=== PATIENT | female | born 2000 ===

== ENCOUNTER 2021-10-03 00:56 | Emergency (ER) | payer OTHER, SELFPAY ==
[2021-10-03 01:05] VITALS: BP 184/87; PULSE 113; RESP 18; TEMP 37; O2SAT 100; BMI 50.8
[2021-10-03 02:06] LABS: Influenza A PCR NEGATIVE (Negative); Influenza B PCR NEGATIVE (Negative); Resp Syncy Virus RNA Qual PCR NEGATIVE (Negative); SARS COV2 PCR INHOUSE NEGATIVE (Negative)
[2021-10-03 02:18] VITALS: BP 139/66; PULSE 113; RESP 18; TEMP 37; O2SAT 99
--- NOTE | 2021-10-03 02:58 | ED_ITS ---
HPI - URI/Sore Throat General Chief Complaint: Upper Respiratory Symptoms Stated Complaint: Flu like symptoms, vomiting Time Seen by Provider: 10/03/21 02:58 Source: patient Mode of arrival: ambulatory History of Present Illness HPI Narrative: 21-year-old female who presents with sore throat and cough that has resulted in her having activation of her acid reflux. She has also had a sore throat but denies any fevers or ear pain. Related Data Allergies Allergy/AdvReac Type Severity Reaction Status Date / Time No Known Allergies Allergy Unverified 08/03/20 16:58 [No Known Allergies*] Review of Systems Review of Systems: Pertinent positives and negatives as stated in HPI 10 point review of systems is otherwise negative. PMFSH Past Medical History Source: nursing notes reviewed Medical History No known health problems Social History Social History Advance Directives: No Advance Directives Information Provided: Yes Patient : No Physical Exam Vital Signs: Vital Signs: Last Vital Signs Temp 98.6 F 10/03/21 02:18 Pulse 113 H 10/03/21 02:18 Resp 18 10/03/21 02:18 BP 139/66 10/03/21 02:18 Pulse Ox 99 10/03/21 02:18 Body Mass Index 50.8 VITAL SIGNS: Reviewed. GENERAL: Well developed, well nourished, in no acute distress. HEAD: Normocephalic/atraumatic EYES: PERRLA, EOMI EARS: Ext canals without abnormality, TMs non-bulging and non-erythematous NOSE: Nares patent bilateral OROPHARYNX: no oral lesions noted, posterior pharynx clear and non-erythematous without noted tonsillar enlargement/erythema/exudates NECK: Supple, no adenopathy LUNGS: Normal breath sounds. No adventitious sounds or accessory muscle use. SpO2<99> CARDIOVASCULAR: Regular rate and rhythm without noted murmurs ABDOMEN: Soft, non-tender, non-distended with bowel sounds. NEUROLOGIC: Alert and oriented x 4. Course Course Course Narrative: 21-year-old female with history and clinical presentation consistent with viral syndrome and possible allergies. Review of all investigations negative for acute findings and patient was treated with Tylenol, ibuprofen as well as a GI cocktail for acid complaints. [facility] - URI/Sore Throat Lab Data Labs: Lab Results 10/03/21 Range/Units 01:16 Influenza Type A (PCR) NEGATIVE (Negative) Influenza Type B (PCR) NEGATIVE (Negative) RSV RNA Qual (PCR) NEGATIVE (Negative) SARS-CoV-2 RNA (RT-PCR) NEGATIVE (Negative) Discharge Plan Discharge Clinical Impression: Upper respiratory infection, Acid reflux Patient Disposition: Home, Self-Care Instructions: Diet for Stomach Ulcers and Gastritis (ED), Upper Respiratory Infection (ED), Gastroesophageal Reflux Disease (ED) Additional Instructions: 1. Recommend using [id number] Cepacol or Sucrets for sore throat. You may use saline gargles as discussed. 2. Continue with [id number] Tylenol/ibuprofen as needed for body aches, temperatures greater than 100.4. 3. Continue drink plenty of fluids especially water. Recommend [id number] Mylanta to to 3 times a day for additional symptom relief of your acid reflux. 4. Consider a cool mist humidifier to bedside for additional symptom relief. 5. Follow-up with your primary care for for re-evaluation and further outpatient management. Return to the ER for acute worsening of symptoms. Stand Alone Forms: Work/School Release
[2021-10-03] MEDS: Acetaminophen 325 MG TABLET 975 MG PO (03:16)
[2021-10-03] MEDS: Ibuprofen 400 MG TABLET PO (03:16)
[2021-10-03] MEDS: Lidocaine HCl Viscous 2 % 15 ML SOLUTION 10 ML MUCOUS MEM (03:16)
[2021-10-03] MEDS: Magnesium Hydrox/Alum Hydrox 30 ML ORAL.SUSP PO (03:16)
--- NOTE | 2021-10-03 03:24 | PC.NURSE ---
Pt alert and oriented x4, calm and cooperative. Pt states agrees to dc plan. Vitals stable. No IV in place. Pt ambulated out to private car without issues.
== END 2021-10-03 03:24 | disposition home or self-care (01) ==
PROVIDERS: Emergency Provider Student in an Organized Health Care Education/Training Program
DX: J06.9 Acute upper respiratory infection, unspecified (principal); K21.9 Gastro-esophageal reflux disease without esophagitis; Z20.822 Contact with and (suspected) exposure to COVID-19
CPT/HCPCS: 0241U; 36415; 99284

== ENCOUNTER 2022-12-31 14:58 | Outpatient (RCR) | payer OTHER, SELFPAY ==
--- NOTE | 2022-12-31 17:26 | MHC.PT.EP ---
[facility] [place] Office [place] [facility] [place] Office [address] [phone] F: [phone] F: [phone] F: [phone] F: [phone] Physical Therapy Plan of Care Date of Evaluation: Date of Surgery: Diagnosis: middle and low back pain Assessment: Patient is a 22 y.o. 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 Patient impairments include pain, limited ROM, weakness, poor posture. Patient current functional limitations are prolonged walking, exercising, and prolonged standing. Patient will benefit from skilled PT to address aforementioned impairments and functional limitations to meet established goals. Frequency and Duration: The patient will be seen 2x/week for 4 weeks Short Term Goals: 2 weeks Patient demonstrates consistency and independence with HEP to self manage symptoms. Patient is able to demonstrate understanding of use fo gym equipment to perform gym program 3x/week outside of PT. Grievance And Appeals Coordinator Goals: 4 weeks Patient presents with increased bilateral shoulder flexion 5/5 to be able to sit for 30 mins for work. Patient presents with increased lumbar sidebending 30 degrees to be able to stand for 15 mins for cleaning/cooking. Treatment Plan: Modalities to reduce pain, spasms and effusion. Manual therapy to restore motion and function. Therapeutic exercise to improve strength and flexibility. Neuromuscular re-education for posture and balance. Therapeutic activities to return to functional activities of daily living. Electronically signed by: Albaro Albert, PT, DPT Please sign and return to therapist. Thank you for your referral.
--- NOTE | 2023-02-13 17:42 | MHC.PT.DC ---
[facility] [place] [facility] [place] [facility] [place] [facility] [address] Nela Agarwal [address] [phone] F: [phone] F: [phone] F: [phone] F: [phone] Physical Therapy Discharge Report Diagnosis: middle and low back pain Date of Surgery: Date of Evaluation: 12/31/22 Date of Discharge: 02/13/23 Treatments to Date: 1 Cancellations to Date: 2 No Shows to Date: Discharge Status: Visit Non-compliance Discharge Summary: Patient canceled her PT visits after initial evaluation and is therefore discharged from PT for non-compliance with visits. Electronically signed by: Albaro Albert, PT, DPT Please sign and return to therapist. Thank you for your referral.
== END 2023-02-13 17:42 | disposition home or self-care (01) ==
LOC: HO.PT 14:58
PROVIDERS: PCP Registered Nurse; Visit Provider Registered Nurse
DX: M54.9 Dorsalgia, unspecified (principal)
CPT/HCPCS: 97110; 97161

== ENCOUNTER 2023-02-04 11:59 | Emergency (ER) | payer OTHER, SELFPAY ==
--- NOTE | ~2023-02-04 | CT_ITS ---
EXAMINATION: CT ABDOMEN AND PELVIS WITHOUT CONTRAST CLINICAL INFORMATION: Constipation, nausea and vomiting. COMPARISON: None available. TECHNIQUE: Multidetector volumetric imaging was performed from the superior aspect of the liver through the pubic symphysis. Sagittal and coronal reformatted images were obtained on the technologist's workstation. This CT examination was performed using dose optimization techniques as appropriate, variously including the following: *Automated exposure control *Adjustment of mA and/or kV according to patient size (this includes techniques or standardized protocols for targeted exams where dose is matched to indication/reason for exam; i.e. extremities or head) *Use of iterative reconstruction technique DLP: 939 mGy-cm FINDINGS: LUNG BASES: The visualized lung bases are unremarkable. LIVER, GALLBLADDER, AND BILIARY TREE: Diffuse decreased hepatic attenuation without focal abnormality. No gallbladder/biliary abnormality. PANCREAS: Unremarkable. SPLEEN: Unremarkable. ADRENAL GLANDS: Unremarkable. KIDNEYS AND URETERS: The kidneys are normal in size, shape, and attenuation. No hydronephrosis, hydroureter, or calculi seen. No perinephric stranding. BLADDER: Unremarkable. GASTROINTESTINAL TRACT: The stomach is unremarkable. The distal small bowel is decompressed. A small air-fluid levels seen in the terminal ileum to the ileocecal valve without surrounding abnormality. The appendix is unremarkable. The colon is decompressed distally to the rectum without surrounding abnormality. ABDOMINAL WALL: No significant hernia is appreciated. LYMPH NODES: No acute cardiopulmonary process. VASCULAR: Unremarkable. PELVIC VISCERA: Mildly retroflexed and retroverted. OSSEOUS STRUCTURES: Unremarkable. CT/CT abdomen pelvis wo IV con IMPRESSION: 1. No acute intra-abdominal/pelvic abnormality. 2. Hepatic steatosis.
[2023-02-04 12:16] VITALS: BP 163/94; PULSE 113; RESP 16; TEMP 36.6; O2SAT 98; BMI 54.5
--- NOTE | 2023-02-04 12:16 | ED.GENADULT ---
HPI - General Adult General Chief complaint: General Medical <RAPHAEL Mathews - Last Filed: 02/04/23 12:19> Stated complaint: sever constipation <RAPHAEL Mathews - Last Filed: 02/04/23 12:19> Time Seen by Provider: 02/04/23 15:28 <RAPHAEL Mathews - Last Filed: 02/04/23 12:19> Source: patient <Yolanda Tolentino NP - Last Filed: 02/04/23 16:47> Mode of arrival: ambulatory <Yolanda Tolentino NP - Last Filed: 02/04/23 16:47> Limitations: no limitations <Yolanda Tolentino NP - Last Filed: 02/04/23 16:47> History of Present Illness HPI narrative: This is a 22-year-old female with history of obesity who presents to the ER with complaints of constipation since yesterday. patient reports her last BM was 2 days. Patient reports and history she has had several episodes of vomiting. Vomiting is nonbilious and nonbloody. Patient reports some abdominal discomfort. No fevers, chills, urinary symptoms. Patient reports approximately 5 weeks ago she was started on wegovy for weight loss. Two weeks ago her dose was increased. She has lost 11 lb since being on the injection <Yolanda Tolentino NP - Last Filed: 02/04/23 16:47> Related Data Home medications: Previous Rx's Medication Instructions Recorded docusate sodium 100 mg capsule 100 mg PO DAILY #60 caps 02/04/23 (Colace) lactulose 10 gram/15 mL oral 10 g (15 mL) PO BEDTIME PRN 02/04/23 solution constipation #120 mL nitrofurantoin 100 mg PO Q12H 5 days #10 caps 02/04/23 monohydrate/macrocrystals 100 mg capsule (Macrobid) ondansetron 4 mg disintegrating 4 mg PO Q6H PRN nausea and 02/04/23 tablet vomiting #20 tabs polyethylene glycol 3350 17 17 g PO DAILY #238 grams 02/04/23 gram/dose oral powder (Miralax) <RAPHAEL Mathews Last Filed: 02/04/23 12:19> Allergies/adverse reactions: Allergies Allergy/AdvReac Type Severity Reaction Status Date / Time No Known Allergies Allergy Unverified 08/03/20 16:58 [No Known Allergies*] <Ty Mcclain PA - Last Filed: 02/04/23 12:19> Review of Systems Review of Systems: Yes all other systems are reviewed and are negative <Yolanda Tolentino NP - Last Filed: 02/04/23 16:47> Constitutional: Constitutional: Reports no additional constitutional complaints, Denies body ache(s), Denies chills, Denies fever(s), Denies headache(s) and Denies weakness <Yolanda Tolentino NP - Last Filed: 02/04/23 16:47> Eyes: Eyes: Reports no additional eye complaints and Denies change in vision <Yolanda Tolentino NP - Last Filed: 02/04/23 16:47> ENT: Reports system reviewed and no additional complaints, except as documented, Denies dizziness, Denies headache(s), Denies nasal congestion, Denies nasal discharge and Denies neck pain <Yolanda Tolentino NP - Last Filed: 02/04/23 16:47> Cardiovascular: Cardiovascular: Reports no additional cardiovascular complaints, Denies chest pain, Denies leg edema and Denies dyspnea <Yolanda Tolentino NP - Last Filed: 02/04/23 16:47> Respiratory: Respiratory: Reports no additional respiratory complaints, Denies cough and Denies dyspnea <Yolanda Tolentino NP - Last Filed: 02/04/23 16:47> Gastrointestinal: Gastrointestinal: Reports no additional gastrointestinal complaints, Denies abdominal pain, Reports constipation, Denies diarrhea, Reports nausea and Reports vomiting <Yolanda Tolentino NP - Last Filed: 02/04/23 16:47> Genitourinary: Genitourinary: Reports no additional female genitourinary complaints and Denies urinary incontinence <Yolanda Tolentino SUPPLY CHAIN GENERALIST - Last Filed: 02/04/23 16:47> Musculoskeletal: Musculoskeletal: Reports no additional musculoskeletal complaints, Denies back pain, Denies arthralgias, Denies joint swelling, Denies neck pain, Denies numbness and Denies tingling <Yolanda Tolentino NP - Last Filed: 02/04/23 16:47> Integumentary/Breasts: Skin/Breast: Reports system reviewed and no additional complaints, except as docu and Denies rash <Yolanda Tolentino NP - Last Filed: 02/04/23 16:47> Neurologic: Reports system reviewed and no additional complaints, except as documented, Denies dizziness, Denies headache(s), Denies numbness, Denies tingling and Denies weakness <Yolanda Tolentino NP - Last Filed: 02/04/23 16:47> [facility] Past Medical History Attestation statement: The following information was validated with the patient. <Yolanda Tolentino NP - Last Filed: 02/04/23 16:47> Source: old records reviewed and nursing notes reviewed <Yolanda Tolentino NP - Last Filed: 02/04/23 16:47> Medical History: Medical History No known health problems <RAPHAEL Mathews - Last Filed: 02/04/23 12:19> Social History Social History: Social History Alcohol intake: never Smoked in Last 30 Days: No Use of substances other than those prescribed or required for medical reasons: No Advance Directives: No Advance Directives Information Provided: Yes Patient : No <RAPHAEL Mathews - Last Filed: 02/04/23 12:19> Physical Exam ED Vital Signs: Vital Signs - 24 hr 02/04/23 12:16 02/04/23 15:39 Temperature 98 F Pulse Rate 113 H 115 H Respiratory Rate 16 19 Blood Pressure 163/94 H 127/83 Pulse Oximetry 98 97 Oxygen Delivery Method Room Air Room Air BMI result Body Mass Index 54.5 <RAHPAEL Mathews - Last Filed: 02/04/23 12:19> Vital Signs - 24 hr 02/04/23 12:16 02/04/23 15:39 Temperature 98 F Pulse Rate 113 H 115 H Respiratory Rate 16 19 Blood Pressure 163/94 H 127/83 Pulse Oximetry 98 97 Oxygen Delivery Method Room Air Room Air BMI result Body Mass Index 54.5 <Yolanda Tolentino NP - Last Filed: 02/04/23 16:47> Const General: cooperative, healthy appearing, comfortable and no acute distress <Yolanda Tolentino SUPPLY CHAIN GENERALIST - Last Filed: 02/04/23 16:47> Orientation/consciousness: patient oriented x3 <Yolanda Tolentino SUPPLY CHAIN GENERALIST - Last Filed: 02/04/23 16:47> Limitations: no limitations <Yolanda Tolentino SUPPLY CHAIN GENERALIST - Last Filed: 02/04/23 16:47> HENMT Head: Yes normal to inspection <Yolanda Tolentino SUPPLY CHAIN GENERALIST - Last Filed: 02/04/23 16:47> Ears: hearing grossly normal bilaterally <Yolanda Tolentino SUPPLY CHAIN GENERALIST - Last Filed: 02/04/23 16:47> Eyes General: appearance normal, both eyes and all related structures <Yolanda Tolentino SUPPLY CHAIN GENERALIST - Last Filed: 02/04/23 16:47> Pupils: Equal, round and reactive pupils present <Yolanda Tolentino SUPPLY CHAIN GENERALIST - Last Filed: 02/04/23 16:47> Neck Neck: Yes normal visual inspection, Yes full ROM, Yes no lymphadenopathy and Yes no meningeal signs <Yolanda Tolentino SUPPLY CHAIN GENERALIST - Last Filed: 02/04/23 16:47> Chest Chest palpation & inspection: normal inspection of the chest <Yolanda Tolentino NP - Last Filed: 02/04/23 16:47> Resp Effort & Inspection: normal respiratory effort <Yolanda Tolentino SUPPLY CHAIN GENERALIST - Last Filed: 02/04/23 16:47> Auscultation: clear to auscultation bilaterally <Yolanda Tolentino SUPPLY CHAIN GENERALIST - Last Filed: 02/04/23 16:47> Cardio Rate: regular rate <Yolanda Tolentino SUPPLY CHAIN GENERALIST - Last Filed: 02/04/23 16:47> Rhythm: regular rhythm <Yolanda Tolentino SUPPLY CHAIN GENERALIST - Last Filed: 02/04/23 16:47> Peripheral pulses: Peripheral pulses 2+ throughout <Yolanda Tolentino SUPPLY CHAIN GENERALIST - Last Filed: 02/04/23 16:47> GI Inspection: Yes normal to inspection <Yolanda Tolentino SUPPLY CHAIN GENERALIST - Last Filed: 02/04/23 16:47> Palpation (GI): Soft to palpation and nontender <Yolanda Tolentino SUPPLY CHAIN GENERALIST - Last Filed: 02/04/23 16:47> Auscultation: normal bowel sounds <Yolanda Tolentino SUPPLY CHAIN GENERALIST - Last Filed: 02/04/23 16:47> General: Yes no CVA tenderness <Yolanda Tolentino, SUPPLY CHAIN GENERALIST - Last Filed: 02/04/23 16:47> Back/Spine/Pelvis Back: no CVA tenderness <Yolanda Tolentino SUPPLY CHAIN GENERALIST - Last Filed: 02/04/23 16:47> Thoracic/Lumbar Spine: thoracic and lumbar spine normal to inspection <Yolanda Tolentino SUPPLY CHAIN GENERALIST - Last Filed: 02/04/23 16:47> Skin General skin exam: no rashes or lesions noted <Yolanda Tolentino SUPPLY CHAIN GENERALIST - Last Filed: 02/04/23 16:47> Neuro General: patient oriented x3, moves all extremities and no meningeal signs <Yolanda Tolentino SUPPLY CHAIN GENERALIST - Last Filed: 02/04/23 16:47> Cranial nerves: Yes Equal, round and reactive pupils present <Yolanda Tolentino SUPPLY CHAIN GENERALIST - Last Filed: 02/04/23 16:47> Cognition (Neuro): normal cognition <Yolanda Tolentino SUPPLY CHAIN GENERALIST - Last Filed: 02/04/23 16:47> Gait exam (Neuro): Normal gait present <Yolanda Tolentino SUPPLY CHAIN GENERALIST - Last Filed: 02/04/23 16:47> Extrem General: Yes normal to inspection, Yes no pedal edema and Yes no calf tenderness <Yolanda Tolentino SUPPLY CHAIN GENERALIST - Last Filed: 02/04/23 16:47> Course Course Course Narrative: This is an RME: Additional HPI, ROS, PE not included below will be deferred to primary provider. 22-year-old female hx of obesity, htn presents to the emergency department for evaluation of nausea, vomiting ( bile 2 x a day or each time she tries to eat), anorexia, constipation, no bowel movement since Saturday. Has tried stool softeners, enemas with no relief. No previous abdominal surgeries or history of malignancy. Recently started Wegovy for weight loss. No history of bowel obstructions. Denies fevers, chills, hematochezia, hematemesis, chest pain, shortness of breath . Physical exam benign. Bowel sounds present. Abdomen soft, nondistended Will obtain basic labs, viral testing, dry scan of the abdomen and pelvis to rule out obstruction <RAPHAEL Mathews - Last Filed: 02/04/23 12:19> Reevaluation(s) Reevaluation #1: CT negative for any signs of obstruction. Labs are unremarkable. UA is consistent with UTI. Patient with mild constipation. Most of her symptoms are likely side effects from recently starting would go be. Patient overall nontoxic appearing. Will discharge home with lactulose p.r.n., bowel regimen, antibiotic, p.r.n. antiemetics. Reviewed worrisome signs and symptoms of when to return to the emergency room. Comfortable plan for discharge home. <Yolanda Tolentino NP - Last Filed: 02/04/23 16:47> Medical Decision Making Medical Decision Making [facility] Narrative: 22-year-old female here with complaints of constipation since yesterday with several episodes of vomiting. Patient recently started wegovy for weight loss Abdomen is soft and nontender with no rebound or guarding Patient overall nontoxic appearing Patient had labs, UA and CT ordered from triage <Yolanda Tolentino NP - Last Filed: 02/04/23 16:47> Differential Diagnosis Differential Diagnoses: The differential diagnosis associated with the presentation includes <Yolanda Tolentino NP - Last Filed: 02/04/23 16:47> Constipation, medication side effect Less likely small-bowel obstruction, appendicitis <Yolanda Tolentino NP - Last Filed: 02/04/23 16:47> Lab Data [facility] Lab Attestation statement: I reviewed the patient's lab results. <Yolanda Tolentino NP - Last Filed: 02/04/23 16:47> Result Diagrams: 02/04/23 12:52 02/04/23 12:52 <RAPHAEL Mathews - Last Filed: 02/04/23 12:19> Labs: Lab Results 02/04/23 02/04/23 02/04/23 Range/Units 12:52 12:52 12:52 WBC 12.6 H (4.8-10.8) X10*3/uL RBC 5.26 (4.20-5.50) X10*6/uL Hgb 14.1 (12.0-16.0) g/dl Hct 44.1 (37.0-47.0) % MCV 83.8 (80.0-98.0) fL MCH 26.8 L (27.0-33.0) pg MCHC 32.0 (31.0-35.0) g/dl RDW 13.3 (11.0-16.0) % Plt Count 444 H (160-400) X10*3/uL MPV 9.8 (9.4-12.3) fL Immature Gran % (Auto) 0.4 (0.0-0.4) % Neut % (Auto) 84.1 H (45-73) % Lymph % (Auto) 9.0 L (20-40) % [place] % (Auto) 4.4 (2-11) % Eos % (Auto) 1.9 (0-4) % Baso % (Auto) 0.2 (0-2) % Lymph # (Auto) 1.1 L (1.2-4.9) X10*3/uL [place] # (Auto) 0.6 (0.1-1.2) X10*3/uL Eos # (Auto) 0.2 (0.0-0.4) X10*3/uL Baso # (Auto) 0.0 (0.0-0.2) X10*3/uL Abs Immat Gran (auto) 0.05 H (0.00-0.03) X10*3/uL Absolute Neuts (auto) 10.6 H (2.0-8.3) x10*3/uL Absolute Nucleated RBC 0.000 (0.0-0.012) X10*3/uL Nucleated RBC % (auto) 0.0 (0.0-0.2) /100WBC Sodium 142 (135-145) mmol/L Potassium 3.8 (3.3-5.1) mmol/L Chloride 103 (96-108) mmol/L Carbon Dioxide 27 (22-29) mmol/L Anion Gap 16 (12-20) BUN 9 (9-16) mg/dL Creatinine 0.85 (0.5-1.4) mg/dL Estim Creat Clear Calc 128.8 Estimated GFR > 60 Random Glucose 97 (60-115) mg/dL Calcium 9.5 (8.4-10.2) mg/dL Total Bilirubin 0.6 (0.0-1.0) mg/dL AST 16 (5-31) U/L ALT 29 (0-31) U/L Alkaline Phosphatase 94 (39-117) U/L Total Protein 7.8 (6.5-8.0) g/dL Albumin 4.6 (3.5-5.0) g/dL Urine Color Urine Appearance Urine pH (5.0-9.0) Ur Specific [place] (1.005-1.025) Urine Protein (Neg-Trace) mg/dL Urine Glucose (UA) (Negative) mg/dL Urine Ketones (Negative) mg/dL Urine Blood (Negative) Urine Nitrite (Negative) Ur Leukocyte Esterase (Negative) Urine RBC (0-2) /HPF Urine WBC (0-5) /HPF Ur Squamous Epith Cells (0-2) /HPF Urine Bacteria (None Seen) Hyaline Casts (0-2) /LPF Urine Test (NEGATIVE) COVID-19 (PAMELA) (Negative) COVID-19 Clin Com Influenza Type A (TORI) Negative (Negative) Influenza Type B (TORI) Negative (Negative) Influenza A & B Note SEE NOTE 02/04/23 02/04/23 02/04/23 Range/Units 12:52 14:20 14:20 WBC (4.8-10.8) X10*3/uL RBC (4.20-5.50) X10*6/uL Hgb (12.0-16.0) g/dl Hct (37.0-47.0) % MCV (80.0-98.0) fL MCH (27.0-33.0) pg MCHC (31.0-35.0) g/dl RDW (11.0-16.0) % Plt Count (160-400) X10*3/uL MPV (9.4-12.3) fL Immature Gran % (Auto) (0.0-0.4) % Neut % (Auto) (45-73) % Lymph % (Auto) (20-40) % [place] % (Auto) (2-11) % Eos % (Auto) (0-4) % Baso % (Auto) (0-2) % Lymph # (Auto) (1.2-4.9) X10*3/uL [place] # (Auto) (0.1-1.2) X10*3/uL Eos # (Auto) (0.0-0.4) X10*3/uL Baso # (Auto) (0.0-0.2) X10*3/uL Abs Immat Gran (auto) (0.00-0.03) X10*3/uL Absolute Neuts (auto) (2.0-8.3) x10*3/uL Absolute Nucleated RBC (0.0-0.012) X10*3/uL Nucleated RBC % (auto) (0.0-0.2) /100WBC Sodium (135-145) mmol/L Potassium (3.3-5.1) mmol/L Chloride (96-108) mmol/L Carbon Dioxide (22-29) mmol/L Anion Gap (12-20) BUN (9-16) mg/dL Creatinine (0.5-1.4) mg/dL Estim Creat Clear Calc Estimated GFR Random Glucose (60-115) mg/dL Calcium (8.4-10.2) mg/dL Total Bilirubin (0.0-1.0) mg/dL AST (5-31) U/L ALT (0-31) U/L Alkaline Phosphatase (39-117) U/L Total Protein (6.5-8.0) g/dL Albumin (3.5-5.0) g/dL Urine Color Yellow Urine Appearance Clear Urine pH 6.0 (5.0-9.0) Ur Specific [place] 1.025 (1.005-1.025) Urine Protein 30 (1+) H (Neg-Trace) mg/dL Urine Glucose (UA) Negative (Negative) mg/dL Urine Ketones 15 (Negative) mg/dL Urine Blood Large (3+) H (Negative) Urine Nitrite Negative (Negative) Ur Leukocyte Esterase Moderate (2+) H (Negative) Urine RBC >20 H (0-2) /HPF Urine WBC 6-10 H (0-5) /HPF Ur Squamous Epith Cells 6-10 (0-2) /HPF Urine Bacteria None Seen (None Seen) Hyaline Casts 0-2 (0-2) /LPF Urine Test NEGATIVE (NEGATIVE) COVID-19 (PAMELA) Negative (Negative) COVID-19 Clin Com See Note Influenza Type A (TORI) (Negative) Influenza Type B (TORI) (Negative) Influenza A & B Note <RAPHAEL Mathews - Last Filed: 02/04/23 12:19> Lab Results 02/04/23 02/04/23 02/04/23 Range/Units 12:52 12:52 12:52 WBC 12.6 H (4.8-10.8) X10*3/uL RBC 5.26 (4.20-5.50) X10*6/uL Hgb 14.1 (12.0-16.0) g/dl Hct 44.1 (37.0-47.0) % MCV 83.8 (80.0-98.0) fL MCH 26.8 L (27.0-33.0) pg MCHC 32.0 (31.0-35.0) g/dl RDW 13.3 (11.0-16.0) % Plt Count 444 H (160-400) X10*3/uL MPV 9.8 (9.4-12.3) fL Immature Gran % (Auto) 0.4 (0.0-0.4) % Neut % (Auto) 84.1 H (45-73) % Lymph % (Auto) 9.0 L (20-40) % [place] % (Auto) 4.4 (2-11) % Eos % (Auto) 1.9 (0-4) % Baso % (Auto) 0.2 (0-2) % Lymph # (Auto) 1.1 L (1.2-4.9) X10*3/uL [place] # (Auto) 0.6 (0.1-1.2) X10*3/uL Eos # (Auto) 0.2 (0.0-0.4) X10*3/uL Baso # (Auto) 0.0 (0.0-0.2) X10*3/uL Abs Immat Gran (auto) 0.05 H (0.00-0.03) X10*3/uL Absolute Neuts (auto) 10.6 H (2.0-8.3) x10*3/uL Absolute Nucleated RBC 0.000 (0.0-0.012) X10*3/uL Nucleated RBC % (auto) 0.0 (0.0-0.2) /100WBC Sodium 142 (135-145) mmol/L Potassium 3.8 (3.3-5.1) mmol/L Chloride 103 (96-108) mmol/L Carbon Dioxide 27 (22-29) mmol/L Anion Gap 16 (12-20) BUN 9 (9-16) mg/dL Creatinine 0.85 (0.5-1.4) mg/dL Estim Creat Clear Calc 128.8 Estimated GFR > 60 Random Glucose 97 (60-115) mg/dL Calcium 9.5 (8.4-10.2) mg/dL Total Bilirubin 0.6 (0.0-1.0) mg/dL AST 16 (5-31) U/L ALT 29 (0-31) U/L Alkaline Phosphatase 94 (39-117) U/L Total Protein 7.8 (6.5-8.0) g/dL Albumin 4.6 (3.5-5.0) g/dL Urine Color Urine Appearance Urine pH (5.0-9.0) Ur Specific [place] (1.005-1.025) Urine Protein (Neg-Trace) mg/dL Urine Glucose (UA) (Negative) mg/dL Urine Ketones (Negative) mg/dL Urine Blood (Negative) Urine Nitrite (Negative) Ur Leukocyte Esterase (Negative) Urine RBC (0-2) /HPF Urine WBC (0-5) /HPF Ur Squamous Epith Cells (0-2) /HPF Urine Bacteria (None Seen) Hyaline Casts (0-2) /LPF Urine Test (NEGATIVE) COVID-19 (PAMELA) (Negative) COVID-19 Clin Com Influenza Type A (TORI) Negative (Negative) Influenza Type B (TORI) Negative (Negative) Influenza A & B Note SEE NOTE 02/04/23 02/04/23 02/04/23 Range/Units 12:52 14:20 14:20 WBC (4.8-10.8) X10*3/uL RBC (4.20-5.50) X10*6/uL Hgb (12.0-16.0) g/dl Hct (37.0-47.0) % MCV (80.0-98.0) fL MCH (27.0-33.0) pg MCHC (31.0-35.0) g/dl RDW (11.0-16.0) % Plt Count (160-400) X10*3/uL MPV (9.4-12.3) fL Immature Gran % (Auto) (0.0-0.4) % Neut % (Auto) (45-73) % Lymph % (Auto) (20-40) % [place] % (Auto) (2-11) % Eos % (Auto) (0-4) % Baso % (Auto) (0-2) % Lymph # (Auto) (1.2-4.9) X10*3/uL [place] # (Auto) (0.1-1.2) X10*3/uL Eos # (Auto) (0.0-0.4) X10*3/uL Baso # (Auto) (0.0-0.2) X10*3/uL Abs Immat Gran (auto) (0.00-0.03) X10*3/uL Absolute Neuts (auto) (2.0-8.3) x10*3/uL Absolute Nucleated RBC (0.0-0.012) X10*3/uL Nucleated RBC % (auto) (0.0-0.2) /100WBC Sodium (135-145) mmol/L Potassium (3.3-5.1) mmol/L Chloride (96-108) mmol/L Carbon Dioxide (22-29) mmol/L Anion Gap (12-20) BUN (9-16) mg/dL Creatinine (0.5-1.4) mg/dL Estim Creat Clear Calc Estimated GFR Random Glucose (60-115) mg/dL Calcium (8.4-10.2) mg/dL Total Bilirubin (0.0-1.0) mg/dL AST (5-31) U/L ALT (0-31) U/L Alkaline Phosphatase (39-117) U/L Total Protein (6.5-8.0) g/dL Albumin (3.5-5.0) g/dL Urine Color Yellow Urine Appearance Clear Urine pH 6.0 (5.0-9.0) Ur Specific [place] 1.025 (1.005-1.025) Urine Protein 30 (1+) H (Neg-Trace) mg/dL Urine Glucose (UA) Negative (Negative) mg/dL Urine Ketones 15 (Negative) mg/dL Urine Blood Large (3+) H (Negative) Urine Nitrite Negative (Negative) Ur Leukocyte Esterase Moderate (2+) H (Negative) Urine RBC >20 H (0-2) /HPF Urine WBC 6-10 H (0-5) /HPF Ur Squamous Epith Cells 6-10 (0-2) /HPF Urine Bacteria None Seen (None Seen) Hyaline Casts 0-2 (0-2) /LPF Urine Test NEGATIVE (NEGATIVE) COVID-19 (PAMELA) Negative (Negative) COVID-19 Clin Com See Note Influenza Type A (TORI) (Negative) Influenza Type B (TORI) (Negative) Influenza A & B Note <Yolanda Tolentino NP - Last Filed: 02/04/23 16:47> Independent Interpretation I performed an independent interpretation of an: CT Scan <Yolanda Tolentino NP - Last Filed: 02/04/23 16:47> Interpretation: I independently reviewed the CT scan and agree with radiologist's report. I do note that there is a moderate stool burden throughout the colon as well. <Yolanda Tolentino NP - Last Filed: 02/04/23 16:47> Radiology Impression Discussion of test interpretation with radiology: I have reviewed the radiologist's reading. <Yolanda Tolentino NP - Last Filed: 02/04/23 16:47> Discharge Plan Discharge Clinical Impression: Constipation, UTI (urinary tract infection) <RAPHAEL Mathews - Last Filed: 02/04/23 12:19> Patient Disposition: Home, Self-Care <RAPHAEL Mathews Last Filed: 02/04/23 12:19> Instructions: Constipation (ED), Urinary Tract Infection in Women (ED) <RAPHAEL Mathews - Last Filed: 02/04/23 12:19> Additional Instructions: Constipation and vomiting are common side effects of the medication that you are currently taking Increase fluids and fiber in your diet Make sure you are eating small frequent meals throughout the day Take the lactulose for the next few days until your able to have a bowel movement then discontinue the lactulose. Then start the bowel regimen of MiraLax and Colace daily You had to have a urinary tract infection. Increase fluids at home. Take all of the antibiotics. <RAPHAEL Mathews - Last Filed: 02/04/23 12:19> Prescriptions: New nitrofurantoin monohyd/m-cryst [Macrobid] 100 mg capsule 100 mg PO Q12H 5 Days Qty: 10 0RF Rx Instructions: must administer with a meal/food ondansetron 4 mg tablet,disintegrating 4 mg PO Q6H PRN (Reason: nausea and vomiting) Qty: 20 0RF polyethylene glycol 3350 [Miralax] 17 gram/dose powder 17 g PO DAILY Qty: 238 0RF docusate sodium [Colace] 100 mg capsule 100 mg PO DAILY Qty: 60 0RF lactulose 10 gram/15 mL solution 10 g PO BEDTIME PRN (Reason: constipation) Qty: 120 0RF <RAPHAEL Mathews - Last Filed: 02/04/23 12:19> Referrals: Physician,Unknown J [Primary Care Provider] - 1 week <RAPHAEL Mathews - Last Filed: 02/04/23 12:19>
[2023-02-04 12:59] LABS: Basophils Percent Auto 0.2 % (0-2); Eosinophils Absolute Auto 0.2 X10*3/uL (0.0-0.4); Eosinophils Percent Auto 1.9 % (0-4); Hematocrit 44.1 % (37.0-47.0); Hemoglobin 14.1 g/dl (12.0-16.0); Imm Gran Abs Auto 0.05 X10*3/uL (0.00-0.03); Imm Gran Pct Auto 0.4 % (0.0-0.4); Lymphocytes Absolute Auto 1.1 X10*3/uL (1.2-4.9); MANUAL DIFF FLAG NO; Mean Corpuscular Hemoglobin 26.8 pg (27.0-33.0); Mean Corpuscular Volume 83.8 fL (80.0-98.0); Mean Platelet Volume 9.8 fL (9.4-12.3); Monocytes Absolute Auto 0.6 X10*3/uL (0.1-1.2); Monocytes Percent Auto 4.4 % (2-11); Neutrophils Absolute Auto 10.6 x10*3/uL (2.0-8.3); Neutrophils Percent Auto 84.1 % (45-73); Platelet Count 444 X10*3/uL (160-400); Red Blood Count 5.26 X10*6/uL (4.20-5.50); Red Cell Distribution Width 13.3 % (11.0-16.0); White Blood Count 12.6 X10*3/uL (4.8-10.8)
[2023-02-04 13:11] LABS: COVID-19 Test Negative (Negative); IDNOW Serial# 08D9AD1C
[2023-02-04 13:17] LABS: Alanine Aminotransferase 29 U/L (0-31); Albumin Level 4.6 g/dL (3.5-5.0); Alkaline Phosphatase 94 U/L (39-117); Anion Gap 16 (12-20); Aspartate Amino Transferase 16 U/L (5-31); Bilirubin Total 0.6 mg/dL (0.0-1.0); Blood Urea Nitrogen 9 mg/dL (9-16); Calcium 9.5 mg/dL (8.4-10.2); Carbon Dioxide 27 mmol/L (22-29); Chloride 103 mmol/L (96-108); Creatinine Clr Calc Pharmacy 128.8; Estimated Glomerular Filt Rate > 60; Glucose Random 97 mg/dL (60-115); Potassium 3.8 mmol/L (3.3-5.1); Sodium 142 mmol/L (135-145); Total Protein 7.8 g/dL (6.5-8.0)
[2023-02-04 13:30] LABS: IDNOW Serial# 9DB6401D; Influenza B2 Negative (Negative)
[2023-02-04 13:31] LABS: Influenza A Negative (Negative)
[2023-02-04 14:28] LABS: Appearance Urine Clear; Color Urine Yellow; Glucose Urine UA Negative (Negative); Leukocyte Esterase Urine Moderate (2+) (Negative); Nitrite Urine Negative (Negative); Specific Gravity - Urine 1.025 (1.005-1.025); UMIC TRIGGER UACC YES; Urine Blood Large (3+) (Negative); Urine Ketones 15 mg/dL (Negative); Urine Protein 30 (1+) mg/dL (Neg-Trace)
[2023-02-04 14:30] LABS: Bacteria Urine None Seen (None Seen); Hyaline Casts Urine 0-2 /LPF (0-2); RBC Urine >20 /HPF (0-2); UACC Culture Trigger YES; UPreg QC Valid YES; Urine Pregnancy NEGATIVE (NEGATIVE)
[2023-02-04 15:39] VITALS: BP 127/83; PULSE 115; RESP 19; O2SAT 97
--- NOTE | 2023-02-04 15:41 | PC.NURSE ---
Patient well appearing resting on stretcher. Patient on medication that can slow down bowel function. Patient with some pressure pain in her abdomen from the constipation, otherwise has no complaints.
== END 2023-02-04 17:13 | disposition home or self-care (01) ==
PROVIDERS: Physician Assistant; Emergency Provider Emergency Medicine
DX: K59.00 Constipation, unspecified (principal); N39.0 Urinary tract infection, site not specified; Z20.822 Contact with and (suspected) exposure to COVID-19; Z20.828 Contact with and (suspected) exposure to other viral communicable diseases; Z79.899 Other long term (current) drug therapy
CPT/HCPCS: 36415; 74176; 80053; 81001; 81025; 85025; 87086; 87147; 87502; 87635; 99284

== ENCOUNTER 2023-02-14 12:56 | Emergency (ER) | payer OTHER, SELFPAY ==
[2023-02-14 13:02] VITALS: BP 150/86; PULSE 132; RESP 18; TEMP 36.3; O2SAT 132; BMI 53.6
--- NOTE | 2023-02-14 13:02 | ED_ITS ---
HPI - General Adult General Chief complaint: Abdominal Pain <RAPHAEL Jones - Last Filed: 02/14/23 13:03> Stated complaint: Vomiting/Dehydrated sent by [facility] <RAPHAEL Jones - Last Filed: 02/14/23 13:03> Time Seen by Provider: 02/14/23 16:50 <RAPHAEL Jones - Last Filed: 02/14/23 13:03> Source: patient <Contreras Landin MD - Last Filed: 02/14/23 19:48> Mode of arrival: ambulatory <Contreras Landin MD - Last Filed: 02/14/23 19:48> Limitations: no limitations <Contreras Landin MD - Last Filed: 02/14/23 19:48> History of Present Illness HPI narrative: 22-year-old female presents with nausea, vomiting and abdominal pain. The symptoms started yesterday. She has had multiple episodes of nonbilious nonbloody emesis. Her pain is described as a 5 or 6/10. The pain is upper abdominal. Does not radiate. There is no clear relieving or exacerbating f eatures. Pain is described as crampy in nature. Patient denies any fevers or chills. She does describe constipation. She has no diarrhea. There has been no blood in her stools. She is passing flatus. She has never had surgery before. She was seen by her primary care provider is center for dehydration. <Contreras Landin MD - Last Filed: 02/14/23 19:48> Related Data Home medications: Previous Rx's Medication Instructions Recorded docusate sodium 100 mg capsule 100 mg PO DAILY #60 caps 02/04/23 (Colace) lactulose 10 gram/15 mL oral 10 g (15 mL) PO BEDTIME PRN 02/04/23 solution constipation #120 mL nitrofurantoin 100 mg PO Q12H 5 days #10 caps 02/04/23 monohydrate/macrocrystals 100 mg capsule (Macrobid) ondansetron 4 mg disintegrating 4 mg PO Q6H PRN nausea and 02/04/23 tablet vomiting #20 tabs polyethylene glycol 3350 17 17 g PO DAILY #238 grams 02/04/23 gram/dose oral powder (Miralax) famotidine 20 mg tablet 20 mg PO BID #20 tabs 02/14/23 ondansetron 4 mg disintegrating 4 mg PO Q8H PRN nausea and 02/14/23 tablet vomiting #10 tabs <RAPHAEL Jones - Last Filed: 02/14/23 13:03> Allergies/adverse reactions: Allergies Allergy/AdvReac Type Severity Reaction Status Date / Time No Known Allergies Allergy Unverified 08/03/20 16:58 [No Known Allergies*] <RAPHAEL Jones - Last Filed: 02/14/23 13:03> [facility] Past Medical History Medical History: Medical History No known health problems <RAPHAEL Jones - Last Filed: 02/14/23 13:03> Social History Social History: Social History Alcohol intake: never Smoked in Last 30 Days: No Use of substances other than those prescribed or required for medical reasons: No Advance Directives: No Advance Directives Information Provided: No Patient : No <RAPHAEL Jones - Last Filed: 02/14/23 13:03> Physical Exam ED Vital Signs: Vital Signs - 24 hr 02/14/23 13:02 02/14/23 17:42 02/14/23 18:29 Temperature 97.4 F 98.3 F 97.6 F Pulse Rate 132 H 106 H 98 Respiratory Rate 18 16 18 Blood Pressure 150/86 H 118/73 104/54 L Pulse Oximetry 132 H 99 98 Oxygen Delivery Method Room Air Room Air Room Air BMI result Body Mass Index 53.6 <RAPHAEL Jones - Last Filed: 02/14/23 13:03> Vital Signs - 24 hr 02/14/23 13:02 02/14/23 17:42 02/14/23 18:29 Temperature 97.4 F 98.3 F 97.6 F Pulse Rate 132 H 106 H 98 Respiratory Rate 18 16 18 Blood Pressure 150/86 H 118/73 104/54 L Pulse Oximetry 132 H 99 98 Oxygen Delivery Method Room Air Room Air Room Air BMI result Body Mass Index 53.6 <Contreras Landin MD - Last Filed: 02/14/23 19:48> GEN: Well developed, no acute distress, alert, oriented HEENT: Normocephalic, atraumatic, normal external ears, nose appears normal, no oropharyngeal edema or exudates Eyes: Normal to appearance Neck: Supple, no lymphadenopathy Respiratory: Talks in complete sentences, no respiratory distress, clear to auscultation bilaterally Cardiovascular: Regular rate and rhythm, no murmurs rubs or gallops Abdomen: Soft, nontender, nondistended, no guarding, no rebound Back: No CVA tenderness Extremities: No clubbing cyanosis or edema Neurologic: No focal neurologic deficits, cranial nerves 2-12 intact, strength is 5/5 bilaterally, gait normal Skin: No rash <Contreras Landin MD - Last Filed: 02/14/23 19:48> Course Course Course Narrative: RME performed by Carolina Roberts PA-C. Patient is 22 year old assigned female at presenting to the emergency department with nausea and vomiting. Labs ordered. Patient placed back in the waiting room pending room availability and results. <RAPHAEL Jones - Last Filed: 02/14/23 13:03> Reevaluation(s) Reevaluation #1: Lab work is back. There is no significant acute abnormalities. There are no major electrolyte abnormalities. Patient have IV fluids, famotidine, Toradol and Zofran. Will re-evaluate patient. Patient recently did have an increase in her simeglutide prescription which may in fact be the culprit for her symptoms. <Contreras Landin MD - Last Filed: 02/14/23 19:48> Time: 17:41 <Contreras Landin MD - Last Filed: 02/14/23 19:48> Reevaluation #2: tolerated PO <Contreras Landin MD - Last Filed: 02/14/23 19:48> Time: 19:48 <Contreras Landin MD - Last Filed: 02/14/23 19:48> Medications Administered Discontinued Medications Generic Name Dose Route Start Last Admin Trade Name Freq PRN Reason Stop Dose Admin Famotidine 20 mg 02/14/23 17:14 02/14/23 17:42 Famotidine/Pf 20 Mg/2 Ml Vial IVPUSH 02/14/23 17:15 20 mg ONCE ONE Administration Sodium Chloride 1,000 mls @ 999 mls/hr 02/14/23 17:15 02/14/23 17:38 Ns IV 02/14/23 18:15 999 mls/hr .Q1H1M NESTOR Administration Ketorolac Tromethamine 15 mg 02/14/23 17:14 02/14/23 17:38 Ketorolac Tromethamine 15 Mg/Ml Vial IVPUSH 02/14/23 17:15 15 mg ONCE ONE Administration Ondansetron HCl 4 mg 02/14/23 17:14 02/14/23 17:40 Ondansetron Hcl 4 Mg/2 Ml Vial IVPUSH 02/14/23 17:15 4 mg ONCE ONE Administration <RAPHAEL Jones - Last Filed: 02/14/23 13:03> Medications Administered Discontinued Medications Generic Name Dose Route Start Last Admin Trade Name Anne-Marie PRN Reason Stop Dose Admin Famotidine 20 mg 02/14/23 17:14 02/14/23 17:42 Famotidine/Pf 20 Mg/2 Ml Vial IVPUSH 02/14/23 17:15 20 mg ONCE ONE Administration Sodium Chloride 1,000 mls @ 999 mls/hr 02/14/23 17:15 02/14/23 17:38 Ns IV 02/14/23 18:15 999 mls/hr .Q1H1M NESTOR Administration Ketorolac Tromethamine 15 mg 02/14/23 17:14 02/14/23 17:38 Ketorolac Tromethamine 15 Mg/Ml Vial IVPUSH 02/14/23 17:15 15 mg ONCE ONE Administration Ondansetron HCl 4 mg 02/14/23 17:14 02/14/23 17:40 Ondansetron Hcl 4 Mg/2 Ml Vial IVPUSH 02/14/23 17:15 4 mg ONCE ONE Administration <Contreras Landin MD - Last Filed: 02/14/23 19:48> Medical Decision Making Medical Decision Making MDM Narrative: 22-year-old female presents with dehydration. She has had multiple episodes of nonbilious nonbloody emesis. She also complains of upper abdominal pain. Her examination is benign. There is no rebound or guarding. There is no tenderness. She has negative Pastor sign. No McBurney's point tenderness doubt acute appendicitis or acute cholecystitis. Additional differential diagnosis could include peptic ulcer diet disease gastritis, medication reaction, IBD, IBS, gastroparesis, bacterial overgrowth. Patient will have laboratory analysis , analgesics antiemetics and IV fluids and frequent re-evaluation. There are no red flag signs or symptoms. Doubt catastrophic injury such is AAA, dissection, bowel perforation. <Contreras Landin MD - Last Filed: 02/14/23 19:48> Differential Diagnosis Differential Diagnoses: The differential diagnosis associated with the presentation includes (Medication reaction, gastritis, peptic ulcer disease, IBD, IBS, pancreatitis, hepatitis, cholecystitis, appendicitis, colitis) <Contreras Landin MD - Last Filed: 02/14/23 19:48> Admission/Observation Consideration of admission/observation: Escalation of care including admission/observation considered <Contreras Landin MD - Last Filed: 02/14/23 19:48> Lab Data MDM Lab Attestation statement: I reviewed the patient's lab results. <Contreras Landin MD - Last Filed: 02/14/23 19:48> Result Diagrams: 02/14/23 13:12 02/14/23 13:12 <RAPHAEL Jones - Last Filed: 02/14/23 13:03> Labs: Lab Results 02/14/23 02/14/23 02/14/23 Range/Units 13:12 13:12 14:49 WBC 11.7 H (4.8-10.8) X10*3/uL RBC 5.25 (4.20-5.50) X10*6/uL Hgb 14.0 (12.0-16.0) g/dl Hct 43.2 (37.0-47.0) % MCV 82.3 (80.0-98.0) fL MCH 26.7 L (27.0-33.0) pg MCHC 32.4 (31.0-35.0) g/dl RDW 13.2 (11.0-16.0) % Plt Count 437 H (160-400) X10*3/uL MPV 10.1 (9.4-12.3) fL Immature Gran % (Auto) 0.4 (0.0-0.4) % Neut % (Auto) 90.7 H (45-73) % Lymph % (Auto) 5.7 L (20-40) % Mcduffie % (Auto) 2.6 (2-11) % Eos % (Auto) 0.1 (0-4) % Baso % (Auto) 0.5 (0-2) % Lymph # (Auto) 0.7 L (1.2-4.9) X10*3/uL Mcduffie # (Auto) 0.3 (0.1-1.2) X10*3/uL Eos # (Auto) 0.0 (0.0-0.4) X10*3/uL Baso # (Auto) 0.1 (0.0-0.2) X10*3/uL Abs Immat Gran (auto) 0.05 H (0.00-0.03) X10*3/uL Absolute Neuts (auto) 10.6 H (2.0-8.3) x10*3/uL Absolute Nucleated RBC 0.000 (0.0-0.012) X10*3/uL Nucleated RBC % (auto) 0.0 (0.0-0.2) /100WBC Smear Tech's Comments VERIFIED Sodium 140 (135-145) mmol/L Potassium 4.1 (3.3-5.1) mmol/L Chloride 108 (96-108) mmol/L Carbon Dioxide 20 L (22-29) mmol/L Anion Gap 16 (12-20) BUN 5 L (9-16) mg/dL Creatinine 0.82 (0.5-1.4) mg/dL Estim Creat Clear Calc 132.2 Estimated GFR > 60 Random Glucose 108 (60-115) mg/dL Calcium 9.4 (8.4-10.2) mg/dL Magnesium 2.1 (1.6-2.6) mg/dL Total Bilirubin 0.6 (0.0-1.0) mg/dL AST 16 (5-31) U/L ALT 28 (0-31) U/L Alkaline Phosphatase 91 (39-117) U/L Total Protein 7.5 (6.5-8.0) g/dL Albumin 4.4 (3.5-5.0) g/dL Beta HCG, Quant < 2 mIU/mL Urine Color Yellow Urine Appearance Clear Urine pH >= 9.0 (5.0-9.0) Ur Specific Tillson 1.015 (1.005-1.025) Urine Protein 30 (1+) H (Neg-Trace) mg/dL Urine Glucose (UA) Negative (Negative) mg/dL Urine Ketones Negative (Negative) mg/dL Urine Blood Large (3+) H (Negative) Urine Nitrite Negative (Negative) Ur Leukocyte Esterase Moderate (2+) H (Negative) Urine RBC 3-5 H (0-2) /HPF Urine WBC 11-20 H (0-5) /HPF Ur Squamous Epith Cells 3-5 (0-2) /HPF Urine Bacteria Trace (None Seen) Hyaline Casts 0-2 (0-2) /LPF <RAPHAEL Jones - Last Filed: 02/14/23 13:03> Lab Results 02/14/23 02/14/23 02/14/23 Range/Units 13:12 13:12 14:49 WBC 11.7 H (4.8-10.8) X10*3/uL RBC 5.25 (4.20-5.50) X10*6/uL Hgb 14.0 (12.0-16.0) g/dl Hct 43.2 (37.0-47.0) % MCV 82.3 (80.0-98.0) fL MCH 26.7 L (27.0-33.0) pg MCHC 32.4 (31.0-35.0) g/dl RDW 13.2 (11.0-16.0) % Plt Count 437 H (160-400) X10*3/uL MPV 10.1 (9.4-12.3) fL Immature Gran % (Auto) 0.4 (0.0-0.4) % Neut % (Auto) 90.7 H (45-73) % Lymph % (Auto) 5.7 L (20-40) % Mcduffie % (Auto) 2.6 (2-11) % Eos % (Auto) 0.1 (0-4) % Baso % (Auto) 0.5 (0-2) % Lymph # (Auto) 0.7 L (1.2-4.9) X10*3/uL Mcduffie # (Auto) 0.3 (0.1-1.2) X10*3/uL Eos # (Auto) 0.0 (0.0-0.4) X10*3/uL Baso # (Auto) 0.1 (0.0-0.2) X10*3/uL Abs Immat Gran (auto) 0.05 H (0.00-0.03) X10*3/uL Absolute Neuts (auto) 10.6 H (2.0-8.3) x10*3/uL Absolute Nucleated RBC 0.000 (0.0-0.012) X10*3/uL Nucleated RBC % (auto) 0.0 (0.0-0.2) /100WBC Smear Tech's Comments VERIFIED Sodium 140 (135-145) mmol/L Potassium 4.1 (3.3-5.1) mmol/L Chloride 108 (96-108) mmol/L Carbon Dioxide 20 L (22-29) mmol/L Anion Gap 16 (12-20) BUN 5 L (9-16) mg/dL Creatinine 0.82 (0.5-1.4) mg/dL Estim Creat Clear Calc 132.2 Estimated GFR > 60 Random Glucose 108 (60-115) mg/dL Calcium 9.4 (8.4-10.2) mg/dL Magnesium 2.1 (1.6-2.6) mg/dL Total Bilirubin 0.6 (0.0-1.0) mg/dL AST 16 (5-31) U/L ALT 28 (0-31) U/L Alkaline Phosphatase 91 (39-117) U/L Total Protein 7.5 (6.5-8.0) g/dL Albumin 4.4 (3.5-5.0) g/dL Beta HCG, Quant < 2 mIU/mL Urine Color Yellow Urine Appearance Clear Urine pH >= 9.0 (5.0-9.0) Ur Specific Tillson 1.015 (1.005-1.025) Urine Protein 30 (1+) H (Neg-Trace) mg/dL Urine Glucose (UA) Negative (Negative) mg/dL Urine Ketones Negative (Negative) mg/dL Urine Blood Large (3+) H (Negative) Urine Nitrite Negative (Negative) Ur Leukocyte Esterase Moderate (2+) H (Negative) Urine RBC 3-5 H (0-2) /HPF Urine WBC 11-20 H (0-5) /HPF Ur Squamous Epith Cells 3-5 (0-2) /HPF Urine Bacteria Trace (None Seen) Hyaline Casts 0-2 (0-2) /LPF <Contreras Landin MD - Last Filed: 02/14/23 19:48> Prescription Management I considered prescription management with: Pain Medication <Contreras Landin MD - Last Filed: 02/14/23 19:48> Discharge Plan Discharge Clinical Impression: Abdominal pain, Acute dehydration <RAPHAEL Jones - Last Filed: 02/14/23 13:03> Patient Disposition: Home, Self-Care <RAPHAEL Jones - Last Filed: 02/14/23 13:03> Instructions: Dehydration (ED), Abdominal Pain (ED) <RAPHAEL Jones - Last Filed: 02/14/23 13:03> Prescriptions: New famotidine 20 mg tablet 20 mg PO BID Qty: 20 0RF ondansetron 4 mg tablet,disintegrating 4 mg PO Q8H PRN (Reason: nausea and vomiting) Qty: 10 0RF No Action nitrofurantoin monohyd/m-cryst [Macrobid] 100 mg capsule 100 mg PO Q12H 5 Days Qty: 10 0RF Rx Instructions: must administer with a meal/food ondansetron 4 mg tablet,disintegrating 4 mg PO Q6H PRN (Reason: nausea and vomiting) Qty: 20 0RF polyethylene glycol 3350 [Miralax] 17 gram/dose powder 17 g PO DAILY Qty: 238 0RF docusate sodium [Colace] 100 mg capsule 100 mg PO DAILY Qty: 60 0RF lactulose 10 gram/15 mL solution 10 g PO BEDTIME PRN (Reason: constipation) Qty: 120 0RF <RAPHAEL Jones - Last Filed: 02/14/23 13:03> Referrals: [facility] [place] [facility] [Provider Group] <RAPHAEL Jones - Last Filed: 02/14/23 13:03>
[2023-02-14 13:27] LABS: Basophils Absolute Auto 0.1 X10*3/uL (0.0-0.2); Basophils Percent Auto 0.5 % (0-2); Eosinophils Percent Auto 0.1 % (0-4); Hematocrit 43.2 % (37.0-47.0); Imm Gran Abs Auto 0.05 X10*3/uL (0.00-0.03); Imm Gran Pct Auto 0.4 % (0.0-0.4); Lymphocytes Absolute Auto 0.7 X10*3/uL (1.2-4.9); Lymphocytes Percent Auto 5.7 % (20-40); MANUAL DIFF FLAG SCAN; Mean Corpuscular HGB Conc 32.4 g/dl (31.0-35.0); Mean Corpuscular Hemoglobin 26.7 pg (27.0-33.0); Mean Corpuscular Volume 82.3 fL (80.0-98.0); Mean Platelet Volume 10.1 fL (9.4-12.3); Monocytes Absolute Auto 0.3 X10*3/uL (0.1-1.2); Monocytes Percent Auto 2.6 % (2-11); Neutrophils Absolute Auto 10.6 x10*3/uL (2.0-8.3); Neutrophils Percent Auto 90.7 % (45-73); Platelet Count 437 X10*3/uL (160-400); Red Blood Count 5.25 X10*6/uL (4.20-5.50); Red Cell Distribution Width 13.2 % (11.0-16.0); SCAN SMEAR FLAG 1; White Blood Count 11.7 X10*3/uL (4.8-10.8)
[2023-02-14 14:10] LABS: Alanine Aminotransferase 28 U/L (0-31); Albumin Level 4.4 g/dL (3.5-5.0); Alkaline Phosphatase 91 U/L (39-117); Anion Gap 16 (12-20); Aspartate Amino Transferase 16 U/L (5-31); Bilirubin Total 0.6 mg/dL (0.0-1.0); Blood Urea Nitrogen 5 mg/dL (9-16); Calcium 9.4 mg/dL (8.4-10.2); Carbon Dioxide 20 mmol/L (22-29); Chloride 108 mmol/L (96-108); Creatinine Clr Calc Pharmacy 132.2; Estimated Glomerular Filt Rate > 60; Glucose Random 108 mg/dL (60-115); HCG Quantitative < 2 mIU/mL; Magnesium 2.1 mg/dL (1.6-2.6); Potassium 4.1 mmol/L (3.3-5.1); Sodium 140 mmol/L (135-145); Total Protein 7.5 g/dL (6.5-8.0)
[2023-02-14 14:25] LABS: SLIDE REVIEW VERIFIED
[2023-02-14 15:12] LABS: Appearance Urine Clear; Color Urine Yellow; Glucose Urine UA Negative (Negative); Leukocyte Esterase Urine Moderate (2+) (Negative); Nitrite Urine Negative (Negative); PH >= 9.0 (5.0-9.0); Specific Gravity - Urine 1.015 (1.005-1.025); UMIC TRIGGER UACC YES; Urine Blood Large (3+) (Negative); Urine Ketones Negative (Negative); Urine Protein 30 (1+) mg/dL (Neg-Trace)
[2023-02-14 15:32] LABS: Bacteria Urine Trace (None Seen); Hyaline Casts Urine 0-2 /LPF (0-2); UACC Culture Trigger YES
[2023-02-14] MEDS: Ketorolac Tromethamine 15 MG/ML VIAL IVPUSH (17:38)
[2023-02-14] MEDS: 0.9 % Sodium Chloride 1,000 ML 999 ML IV (17:38)
[2023-02-14] MEDS: ondansetron HCL 4 MG/2 ML VIAL IVPUSH (17:40)
[2023-02-14 17:42] VITALS: BP 118/73; PULSE 106; RESP 16; TEMP 36.8; O2SAT 99
[2023-02-14] MEDS: Famotidine/PF 20 MG/2 ML VIAL IVPUSH (17:42)
[2023-02-14 18:29] VITALS: BP 104/54; PULSE 98; RESP 18; TEMP 36.4; O2SAT 98
--- NOTE | 2023-02-14 19:10 | PC.NURSE ---
no apparent distress, aox4 resting quietly while parents at bedside
[2023-02-14 20:00] VITALS: BP 113/64; PULSE 100; RESP 20; TEMP 37.1; O2SAT 98
--- NOTE | 2023-02-14 20:24 | PC.NURSE ---
Discharge instructions given/explained to pt all of pt's questions answered ambulates safely/independently, no apparent distress IV cath intact upon removal
== END 2023-02-14 20:26 | disposition home or self-care (01) ==
PROVIDERS: Physician Assistant Medical; Emergency Provider Emergency Medicine; PCP Dentist General Practice
DX: R10.10 Upper abdominal pain, unspecified (principal); E86.0 Dehydration; K59.00 Constipation, unspecified; Z79.899 Other long term (current) drug therapy
CPT/HCPCS: 36415; 80053; 81001; 81003; 83735; 84702; 85025; 87086; 96361; 96374; 96375; 99284; J1885; J2405

== ENCOUNTER 2023-06-24 17:01 | Emergency (ER) | payer OTHER, SELFPAY ==
--- NOTE | ~2023-06-24 | US_ITS ---
EXAMINATION: US DIAGNOSTIC ULTRASOUND BREAST, LEFT CLINICAL INFORMATION: Tender mass. COMPARISON: None available. TECHNIQUE: Ultrasound of the breast is performed with real-time rosario scale imaging and color Doppler. FINDINGS: Ovoid complex hypoechoic mass measuring 1.2 x 0.5 x 1.5 cm at the 8:00 position approximately 18 cm from the nipple. There is vascular in the soft tissues around this lesion but not within the lesion. Lesion is suspicious for abscess. Results are discussed with the patient at time of visit. US/US breast LT limited IMPRESSION: 1. Complex hypoechoic mass with vascular flow in the soft tissues of the left breast at the 8:00 position 18 cm from the nipple. Lesion is suspicious for abscess. 2. BI-RADS 4A: Low suspicion for malignancy. ASSESSMENT: BI-RADS 2: Benign RECOMMENDATION: 1. Patient should be managed based on the clinical impression. Decision to proceed with biopsy should be based on clinical grounds and degree of clinical concern.
--- NOTE | ~2023-06-24 | US_ITS ---
EXAMINATION: US DIAGNOSTIC ULTRASOUND BREAST, RIGHT CLINICAL INFORMATION: Tender mass. COMPARISON: None available. TECHNIQUE: Ultrasound of the breast is performed with real-time rosario scale imaging and color Doppler. FINDINGS: Ovoid complex hypoechoic mass measuring 1.5 x 0.3 x 1.1 cm at the 4:00 position approximately 18 cm from the nipple. There is vascular in the soft tissues around this lesion but not within the lesion. Lesion is suspicious for abscess. Results are discussed with the patient at time of visit. US/US breast RT limited IMPRESSION: 1. Complex hypoechoic mass with vascular flow in the soft tissues of the right breast at the 4:00 position 18 cm from the nipple. Lesion is suspicious for abscess. 2. BI-RADS 4A: Low suspicion for malignancy. ASSESSMENT: BI-RADS 2: Benign RECOMMENDATION: 1. Patient should be managed based on the clinical impression. Decision to proceed with biopsy should be based on clinical grounds and degree of clinical concern.
[2023-06-24 17:25] VITALS: BP 129/59; PULSE 99; RESP 18; TEMP 37.1; O2SAT 97; BMI 56.6
--- NOTE | 2023-06-24 17:28 | ED.SKABFB ---
HPI - Skin/Abscess/Foreign Bdy General Chief complaint: General Medical Stated complaint: lump on breast Time Seen by Provider: 06/24/23 17:55 Source: patient, RN notes reviewed and old records reviewed Mode of arrival: ambulatory History of Present Illness HPI narrative: 23-year-old female with no significant past medical history presenting to the ED complaining of painful lumps under bilateral breasts x few weeks. Admit initially started under right breast then progressed to left, & also had tender area to left axilla which has improved. Denies fever/chills, redness, drainage from area, known injury/trauma, nipple discharge, skin changes, personal or family history of breast cancer Patient admits she was prescribed doxycycline by PCP however took 1 dose and was unable to tolerate. MD complaint: abscess/boil Related Data Previous Rx's Medication Instructions Recorded docusate sodium 100 mg capsule 100 mg PO DAILY #60 caps 02/04/23 (Colace) lactulose 10 gram/15 mL oral 10 g (15 mL) PO BEDTIME PRN 02/04/23 solution constipation #120 mL nitrofurantoin 100 mg PO Q12H 5 days #10 caps 02/04/23 monohydrate/macrocrystals 100 mg capsule (Macrobid) ondansetron 4 mg disintegrating 4 mg PO Q6H PRN nausea and 02/04/23 tablet vomiting #20 tabs polyethylene glycol 3350 17 17 g PO DAILY #238 grams 02/04/23 gram/dose oral powder (Miralax) famotidine 20 mg tablet 20 mg PO BID #20 tabs 02/14/23 ondansetron 4 mg disintegrating 4 mg PO Q8H PRN nausea and 02/14/23 tablet vomiting #10 tabs Allergies Allergy/AdvReac Type Severity Reaction Status Date / Time No Known Allergies Allergy Unverified 08/03/20 16:58 [No Known Allergies*] Review of Systems Review of Systems: Constitutional: No Fever, No Chills ENT/Mouth: No Ear Pain, No Nasal Congestion, No sore throat, No Rhinorrhea, No Swallowing Difficulty Cardiovascular: No Chest Pain, No SOB Respiratory: No Cough, No Sputum, No Wheezing Gastrointestinal: No Nausea, No Vomiting, No Diarrhea, No Constipation, No Abdominal pain Skin: +Skin Lesions, No rash Neuro: No Weakness, No Numbness, No Paresthesias Yes all other systems are reviewed and are negative Constitutional: Constitutional: Reports as per [facility] Past Medical History Attestation statement: The following information was validated with the patient. Source: old records reviewed Medical History No known health problems Social History Social History Alcohol intake: never Advance Directives: No Advance Directives Information Provided: No Physical Exam Vital Signs: Vital Signs: Last Vital Signs Temp 98.7 F 06/24/23 17:25 Pulse 99 06/24/23 17:25 Resp 18 06/24/23 17:25 BP 129/59 L 06/24/23 17:25 Pulse Ox 97 06/24/23 17:25 O2 Del Method Room Air 06/24/23 17:25 BMI result Body Mass Index 56.6 Const: General: cooperative, healthy appearing and no acute distress Orientation/consciousness: patient oriented x3 Limitations: no limitations HEENT: Head: Yes normal to inspection and Yes atraumatic Ears: hearing grossly normal bilaterally General nose exam: Normal external nose present Face and sinus: Yes normal facial exam Eyes: General: appearance normal, both eyes and all related structures EOM: EOMs intact bilaterally Neck: Neck: Yes normal visual inspection and Yes no meningeal signs Chest: Other: + indurated areas/abscesses to chest wall bilaterally beneath the breasts medially/bordering sternum. Tender to palpation. No erythema/warmth. No fluctuance or streaking. No crepitus Chest palpation & inspection: no crepitus and tenderness Breast/axilla inspection: normal inspection of the breasts and normal inspection of the axillae Breast/axilla palpation: normal palpation of the breasts and no axillary lymphadenopathy Resp: Effort & Inspection: normal respiratory effort and no respiratory distress Cardio: Rate: regular rate Skin: Rashes: no rashes Wounds: no wounds Neuro: General: patient oriented x3, tone normal and no meningeal signs Gait exam (Neuro): Normal gait present Extrem: General: Yes normal to inspection Course Course Course Narrative: RME - 23 yo female presents to the ER -1900--ED care transferred to RAPHAEL Demarco pending ultrasound results and anticipated discharge Medical Decision Making Medical Decision Making MDM Narrative: 23-year-old female with no significant past medical history presenting to the ED complaining of painful lumps under bilateral breasts x few weeks. On exam vital signs stable, NAD, nontoxic appearing, physical exam as noted above. No skin changes or nipple discharge. No fluctuance or evidence of cellulitis. Indurated abscesses noted to chest wall/beneath breasts. Concern for hidradenitis/indurated abscesses versus cyst. No evidence of cellulitis. Unlikely breast cancer, pneumonia, or rib fracture Plan: Ultrasound, antibiotics Please refer to course for remaining clinical decision making, interpretation of labs/imaging results, and discussions with consultants and/or family members. Differential Diagnosis Differential Diagnoses: The differential diagnosis associated with the presentation includes As above Radiology Impression Discussion of test interpretation with radiology: I have reviewed the radiologist's reading. External Record Review External record reviewed: Inpatient record, Office record, Outpatient record, Prior outpatient labs, Prior outpatient radiology, Primary care record and Outside ED record Tests considered The following testing was considered but not selected: As above Prescription Management I considered prescription management with: Pain Medication and Antibiotic Discharge Plan Discharge Clinical Impression: Abscess Patient Disposition: Still a Patient Instructions: Abscess (ED) Prescriptions: No Action nitrofurantoin monohyd/m-cryst [Macrobid] 100 mg capsule 100 mg PO Q12H 5 Days Qty: 10 0RF Rx Instructions: must administer with a meal/food ondansetron 4 mg tablet,disintegrating 4 mg PO Q6H PRN (Reason: nausea and vomiting) Qty: 20 0RF polyethylene glycol 3350 [Miralax] 17 gram/dose powder 17 g PO DAILY Qty: 238 0RF docusate sodium [Colace] 100 mg capsule 100 mg PO DAILY Qty: 60 0RF lactulose 10 gram/15 mL solution 10 g PO BEDTIME PRN (Reason: constipation) Qty: 120 0RF famotidine 20 mg tablet 20 mg PO BID Qty: 20 0RF ondansetron 4 mg tablet,disintegrating 4 mg PO Q8H PRN (Reason: nausea and vomiting) Qty: 10 0RF Referrals: [facility] [place] [facility] [Provider Group] - 3 days Galo Driver MD [Primary Care Provider] -
[2023-06-24 19:45] VITALS: BP 125/65; PULSE 96; RESP 18; TEMP 37.1; O2SAT 99
--- NOTE | 2023-06-24 19:53 | PC.NURSE ---
Pt A&Ox4, reports small bumps to lower sternum and one under right breast. Reports tenderness to touch x 1month. Awaiting ultrasound results.
--- NOTE | 2023-06-24 23:00 | PC.NURSE ---
pt updated re:ultrasound result- pt awaiting ED provide and discharge, pt had not eaten since 1400 provided pt with food
[2023-06-25] MEDS: Lidocaine HCl 1%/Epi 1:100,000 10 ML VIAL INFILTRATI (01:32)
== END 2023-06-25 01:45 | disposition home or self-care (01) ==
PROVIDERS: Emergency Provider Emergency Medicine Emergency Medical Services; PCP Dentist General Practice
DX: N61.1 Abscess of the breast and nipple (principal); N64.4 Mastodynia; Z79.899 Other long term (current) drug therapy
CPT/HCPCS: 76642; 99284

== ENCOUNTER 2023-07-02 18:53 | Outpatient (REF) | payer OTHER, SELFPAY | END 2023-07-02 18:54 | disposition home or self-care (01) | LOC: HO.HHCLNP 18:53 | PROVIDERS: Visit Provider Advanced Practice Midwife | DX: Z12.4 Encounter for screening for malignant neoplasm of cervix (principal) | CPT/HCPCS: 88142 ==

== ENCOUNTER 2023-11-05 10:47 | Outpatient (REF) | payer OTHER, SELFPAY ==
[2023-11-05 11:18] LABS: MANUAL DIFF FLAG NO
[2023-11-05 11:37] LABS: Basophils Percent Auto 0.3 % (0-2); Eosinophils Absolute Auto 0.1 X10*3/uL (0.0-0.4); Eosinophils Percent Auto 1.3 % (0-4); Hemoglobin 13.3 g/dl (12.0-16.0); Imm Gran Abs Auto 0.07 X10*3/uL (0.00-0.03); Imm Gran Pct Auto 0.7 % (0.0-0.4); Lymphocytes Absolute Auto 1.8 X10*3/uL (1.2-4.9); Lymphocytes Percent Auto 17.8 % (20-40); Mean Corpuscular HGB Conc 32.4 g/dl (31.0-35.0); Mean Corpuscular Hemoglobin 27.4 pg (27.0-33.0); Mean Corpuscular Volume 84.5 fL (80.0-98.0); Mean Platelet Volume 10.4 fL (9.4-12.3); Monocytes Absolute Auto 0.5 X10*3/uL (0.1-1.2); Monocytes Percent Auto 4.8 % (2-11); Neutrophils Absolute Auto 7.4 x10*3/uL (2.0-8.3); Neutrophils Percent Auto 75.1 % (45-73); Platelet Count 441 X10*3/uL (160-400); Red Blood Count 4.85 X10*6/uL (4.20-5.50); Red Cell Distribution Width 13.2 % (11.0-16.0); White Blood Count 9.9 X10*3/uL (4.8-10.8)
[2023-11-05 12:28] LABS: Vitamin D 25-OH Total 7.8 ng/mL (>30)
== END 2023-11-05 10:48 | disposition home or self-care (01) ==
LOC: HO.HHCL 10:47
PROVIDERS: Visit Provider Registered Nurse
DX: R40.0 Somnolence (principal)
CPT/HCPCS: 36415; 82306; 84443; 85025

== ENCOUNTER 2023-12-29 08:27 | Outpatient (AMB) | payer OTHER, SELFPAY ==
--- NOTE | 2023-12-29 08:40 | A.OFFPC_ITS ---
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 Intake Note: New patient establishing care Child Care Education Coordinator Required: No Accompanied by: Self / Same As Patient Allergies wegovy Adverse Reaction (Intermediate, Uncoded 12/29/23 09:11) Abdominal Pain, nausea and vomiting and constipation Medication List - Last Reconciled 12/29/23 by Brunilda Harper MD lisinopril 5 mg PO DAILY semaglutide (Rybelsus) 3 mg PO QAM Tobacco use date assessed: 12/29/23 Dental Screening Dental Screen Date: 12/29/23 Did you have a dental visit in the last 12 months?: No Did you have a dental problem in the last 6 months where you did not have access to dental care?: No Was dental information given to patient?: Patient has dentist HPI HPI Comments History of Present Illness Details This is a 23-year-old female with hypertension, super super obese and low vitamin-D that comes today to establish care. She complains of migraines that has been more frequently on a daily basis. No neurological deficit. Will start her on Topamax at bedtime. Side effects such as sleepiness and hand numbness were discussed. Blood pressure elevated today but has not take lisinopril yet. Blood pressure will be recheck in 3 weeks by nurse navigator. On rybelsus for her obesity. Was in where goal be in the past causing this nausea and vomiting, constipation and abdominal pain. Vitamin-D was low and will be recheck. Has history of hematuria in the past and this will also be recheck. [facility] Surgical History No pertinent past surgical history Family History Mother No problems noted. Father Diabetes Social History Housing: House Alcohol intake: current Alcohol intake frequency: holidays/special occasions only Alcohol type: other Patient Tobacco Use Status: Never used Tobacco e-Cigarette/Vaping Use: Never Used Second Hand Smoke Exposure: No service: No Current occupational status: employed Current occupational exposures/hazards: No Cognitive needs: No Hearing needs: No Vision needs: Yes Questionnaire PHQ-9 Over the last 2 weeks, how often have you been bothered by any of the following problems? 1. Little interest or pleasure in doing things: not at all 2. Feeling down, depressed, or hopeless: not at all 3. Trouble falling or staying asleep, or sleeping too much: not at all 4. Feeling tired or having little energy: not at all 5. Poor appetite or overeating: not at all 6. Feeling bad about yourself - or that you are a failure or have let yourself or your family down: not at all 7. Trouble concentrating on things, such as reading the newspaper or watching television: not at all 8. Moving or speaking so slowly that other people could have noticed. Or the opposite - being so fidgety or restless that you have been moving around a lot more than usual: not at all 9. Thoughts that you would be better off or of hurting yourself in some way: not at all Total score: 0 Depression Screening Interpretation: Negative Depression Screening Done: Yes 92417 - PHQ-9 Billing: Yes Source: Developed by Drs. Curt Sorensen, Trena Garner, Shamir Mccray and colleagues, with an educational choco from [employer]. Thrive Questionnaire Date Thrive assessed: 12/29/23 I am a: Patient What is your living situation today?: I have a steady place to live Within the past 12 months, did the food you bought not last and you didn't have the money to get more?: Never true Within the past 12 months, did you worry whether your food would run out before you got money to buy more?: Never true Do you have trouble paying for medicines?: No Do you have trouble getting transportation to medical appointments?: No Do you have trouble paying your heating and electricity bill?: No Do you have trouble taking care of your child, family member or friend?: No Do you have trouble with day-to-day activities such as bathing, preparing meals, shopping, managing finances, etc.?: No Are you currently unemployed and looking for a job?: No Are you interested in more education?: No Please select the resources that you would like help with: None Currently or been in a relationship where the following occur: no concerns reported THRIVE Score: 0 AUDIT C Alcohol Use Questionnaire (AUDIT-C) 1. How often do you have a drink containing alcohol?: Monthly or less 2. How many drinks containing alcohol do you have on a typical day when you are drinking?: 1 or 2 3. How often do you have six or more drinks on one occasion?: Never Total Score: 1 Score Reviewed/Action Taken: No EMMA-7 AMB Questionnaire EMMA-7 Date EMMA - 7 assessed: 12/29/23 Feeling nervous, anxious, or on edge: 1 = Several days Not being able to stop or control worryin = Not at all Worrying too much about different things: 0 = Not at all Trouble relaxin = Not at all Being so restless that it is hard to sit still: 0 = Not at all Becoming easily annoyed or irritable: 0 = Not at all Feeling afraid as if something awful might happen: 0 = Not at all Total EMMA-7 score (0-4 normal; 5-9 mild; 10-14 moderate; 15-21 severe): 1 Source: Developed by Drs. Curt Sorensen, Trena Garner, Shamir Mccray and colleagues, with an educational choco from [employer]. EMMA-7 Assessment Billing EMMA-7 Assessment Tool: EMMA-7 Assessment 59566 Review of Systems Const All systems reviewed & are unremarkable except as noted in HPI and below Eyes Reports no additional complaints, Denies change in vision and Denies other visual disturbances Card Denies chest pain at rest, Denies chest pain with activity, Denies edema, Denies irregular heart rhythm, Denies claudication, Denies dyspnea, Denies dyspnea on exertion, Denies orthopnea, Denies paroxysmal nocturnal dyspnea and Denies slow heart rate Resp Denies cough, Denies dyspnea and Denies dyspnea on exertion GI Denies abdominal pain, Denies change in bowel habits, Denies excessive flatus, Denies nausea and Denies vomiting Denies urinary incontinence, Denies urinary hesitancy and Denies urinary urgency Musc Denies abnormal gait, Denies atrophy, Denies deformity and Denies limited range of motion Skin/Breast Denies bleeding lesions, Denies changing lesions and Denies rash Neuro Denies abnormal gait, Denies behavioral changes and Denies lack of coordination Psych Denies behavioral changes Physical exam (Primary Care) Vital Signs: Last Vital Signs BP 146/80 H 12/29/23 08:41 BMI result Body Mass Index 56.6 Tobacco/Smoking Status: Tobacco use Status Tobacco use date assessed 12/29/23 12/29/23 08:49 Patient Tobacco Use Status Never used Tobacco 12/29/23 08:49 e-Cigarette/Vaping Use Never Used 12/29/23 08:49 PHQ-9: PHQ-9 Score PHQ-9: Total score 0 12/29/23 08:49 Depression Screening Interpretation: Negative Thrive Assessment: Date of Thrive Assessment Date Thrive assessed 12/29/23 12/29/23 08:49 Currently or been in a relationship where the following occur: no concerns reported Eyes General: appearance normal, both eyes and all related structures Eyelids: Yes eyelids normal Conjunctivae: conjunctivae normal Neck Neck: Yes normal visual inspection and Yes supple Resp Effort & Inspection: normal respiratory effort Auscultation: clear to auscultation bilaterally Cardio Jugular venous distension: no JVD Rate: regular rate Rhythm: regular rhythm Heart sounds: S1 normal heart sound present and S2 normal heart sound present Extrem General: Yes full ROM Assessment and Plan Assessment & Plan (1) Hypovitaminosis D: Code(s): E55.9 - Vitamin D deficiency, unspecified Plan: Recheck vitamin-D levels. (2) Microscopic hematuria: Code(s): R31.29 - Other microscopic hematuria Plan: Recheck urinalysis. (3) Super-super obese: Code(s): E66.01 - Morbid (severe) obesity due to excess calories Plan: Continue rybelsus. BMI goal is less than 30. (4) Essential hypertension: Code(s): I10 - Essential (primary) hypertension Plan: Continue lisinopril. Blood pressure goal is equal or less than 130/80. Recheck blood pressure with nurse navigator in 3 weeks. (5) Migraines: Code(s): G43.909 - Migraine, unspecified, not intractable, without status migrainosus Plan: Start sumatriptan as needed. Start Topamax at bedtime. Orders: Orders Vitamin D 25-OH Total Today E55.9 - Vitamin D deficiency, unspecified Comprehensive [place]. Panel Fast Today E66.01 - Morbid (severe) obesity due to excess calories Complete Blood Count Auto Diff Today E66.01 - Morbid (severe) obesity due to excess calories Lipid Panel Today E66.01 - Morbid (severe) obesity due to excess calories UA CC w/rflx Micro + Cult Today R30.0 - Dysuria Medications: New sumatriptan succinate do not exceed 8 doses per 24 hrs 25 mg PO Q2-4H 30 days PRN 9 tabs 2RF migraine headache topiramate 25 mg PO BEDTIME 30 days 30 tabs 1RF G43.909 - Migraine, unspecified, not intractable, without status migrainosus Coding Level of Care Code New Pt Level 4 (87376) Diagnoses Hypovitaminosis D E55.9 Microscopic hematuria R31.29 Super-super obese E66.01 Essential hypertension I10 Migraines G43.909 Additional Codes EMMA-7 Assessment Billing - EMMA-7 Assessment Tool: EMMA-7 Assessment 81795 ([id number]) Time Spent (min) 26
[2023-12-29 08:41] VITALS: BP 146/80; BMI 56.6
[2023-12-29 09:25] VITALS: BP 150/80
== END 2023-12-29 09:18 | disposition home or self-care (01) ==
PROVIDERS: PCP Internal Medicine; Visit Provider Internal Medicine
DX: G43.909 Migraine, unspecified, not intractable, without status migrainosus (principal); E66.01 Morbid (severe) obesity due to excess calories; Z68.43 Body mass index [BMI] 50.0-59.9, adult; E55.9 Vitamin D deficiency, unspecified; R31.29 Other microscopic hematuria; I10 Essential (primary) hypertension
CPT/HCPCS: 99204

== ENCOUNTER 2023-12-29 09:37 | Outpatient (REF) | payer OTHER, SELFPAY ==
[2023-12-29 10:16] LABS: MANUAL DIFF FLAG NO
[2023-12-29 10:59] LABS: Basophils Absolute Auto 0.1 X10*3/uL (0.0-0.2); Basophils Percent Auto 0.5 % (0-2); Eosinophils Absolute Auto 0.1 X10*3/uL (0.0-0.4); Eosinophils Percent Auto 0.9 % (0-4); Hematocrit 42.1 % (37.0-47.0); Hemoglobin 13.6 g/dl (12.0-16.0); Imm Gran Abs Auto 0.08 X10*3/uL (0.00-0.03); Imm Gran Pct Auto 0.8 % (0.0-0.4); Lymphocytes Absolute Auto 1.6 X10*3/uL (1.2-4.9); Lymphocytes Percent Auto 14.8 % (20-40); Mean Corpuscular HGB Conc 32.3 g/dl (31.0-35.0); Mean Corpuscular Hemoglobin 26.8 pg (27.0-33.0); Mean Corpuscular Volume 82.9 fL (80.0-98.0); Mean Platelet Volume 10.6 fL (9.4-12.3); Monocytes Absolute Auto 0.4 X10*3/uL (0.1-1.2); Monocytes Percent Auto 4.2 % (2-11); Neutrophils Absolute Auto 8.4 x10*3/uL (2.0-8.3); Neutrophils Percent Auto 78.8 % (45-73); Platelet Count 335 X10*3/uL (160-400); Red Blood Count 5.08 X10*6/uL (4.20-5.50); Red Cell Distribution Width 12.8 % (11.0-16.0); White Blood Count 10.6 X10*3/uL (4.8-10.8)
[2023-12-29 11:43] LABS: Alanine Aminotransferase 21 U/L (0-31); Albumin Level 4.2 g/dL (3.5-5.0); Alkaline Phosphatase 86 U/L (39-117); Anion Gap 12 (12-20); Aspartate Amino Transferase 14 U/L (5-31); Bilirubin Total 0.2 mg/dL (0.0-1.0); Blood Urea Nitrogen 7 mg/dL (9-16); Calcium 9.4 mg/dL (8.4-10.2); Carbon Dioxide 25 mmol/L (22-29); Chloride 107 mmol/L (96-108); Cholesterol 192 mg/dL (<200); Estimated Glomerular Filt Rate > 60; Glucose Fasting 114 mg/dL (60-99); HDL Cholesterol 35 mg/dL (>40); LDL Cholesterol Calculated 140 mg/dL (<100); Potassium 3.9 mmol/L (3.3-5.1); Sodium 140 mmol/L (135-145); Total Protein 7.9 g/dL (6.5-8.0); Triglycerides 87 mg/dL (<150)
[2023-12-29 12:04] LABS: Vitamin D 25-OH Total 17.5 ng/mL (>30)
[2023-12-29 13:00] LABS: Appearance Urine Clear; Color Urine Yellow; Glucose Urine UA Negative (Negative); Leukocyte Esterase Urine Small (1+) (Negative); Nitrite Urine Negative (Negative); PH 5.5 (5.0-9.0); Specific Gravity - Urine 1.025 (1.005-1.025); UMIC TRIGGER UACC YES; Urine Blood Moderate (2+) (Negative); Urine Ketones Trace mg/dL (Negative); Urine Protein Negative (Neg-Trace)
[2023-12-29 13:04] LABS: Bacteria Urine Trace (None Seen); Hyaline Casts Urine 0-2 /LPF (0-2); RBC Urine >20 /HPF (0-2); UACC Culture Trigger YES
== END 2023-12-29 09:38 | disposition home or self-care (01) ==
LOC: HO.LAB 09:37
PROVIDERS: PCP Internal Medicine; Visit Provider Internal Medicine
DX: E55.9 Vitamin D deficiency, unspecified (principal); E66.01 Morbid (severe) obesity due to excess calories; R82.90 Unspecified abnormal findings in urine
CPT/HCPCS: 36415; 80053; 80061; 81001; 81003; 82306; 85025; 87086

== ENCOUNTER 2024-01-27 11:31 | Outpatient (REF) | payer OTHER, SELFPAY ==
--- NOTE | ~2024-01-27 | US_ITS ---
EXAMINATION: US RETROPERITONEAL LIMITED (RENAL ONLY) CLINICAL INFORMATION: Other microscopic hematuria. COMPARISON: CT abdomen and pelvis 02/04/2023. TECHNIQUE: Real-time imaging of the kidneys. FINDINGS: RIGHT KIDNEY: 11.7 x 4.1 x 4.7 cm (SAG x AP x TRV). The kidney is normal in size, contour, and echogenicity. Renal cortical thickness is normal. No calculi or focal parenchymal lesions. No hydronephrosis. LEFT KIDNEY: 11.4 x 4.9 x 5.0 cm (SAG x AP x TRV). The kidney is normal in size, contour, and echogenicity. Renal cortical thickness is normal. No calculi or focal parenchymal lesions. No hydronephrosis. US/US renal BI IMPRESSION: No nephrolithiasis or hydronephrosis.
== END 2024-01-27 11:32 | disposition home or self-care (01) ==
LOC: HO.US 11:31
PROVIDERS: PCP Internal Medicine; Visit Provider Internal Medicine
DX: R31.29 Other microscopic hematuria (principal)
CPT/HCPCS: 76775

== ENCOUNTER → 2024-01-28 09:16 | Outpatient (BNVA) | payer OTHER, SELFPAY | PROVIDERS: PCP Internal Medicine; Visit Provider Surgery ==

== ENCOUNTER 2024-03-15 09:00 | Outpatient (AMB) | payer OTHER, SELFPAY ==
--- NOTE | 2024-03-15 13:34 | MHC.OFFVISWM ---
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 Allergies wegovy Adverse Reaction (Intermediate, Uncoded 03/15/24 13:36) Abdominal Pain, nausea and vomiting and constipation Medication List - Last Reconciled 03/15/24 by Mikael Levine MD cholecalciferol (vitamin D3) 50 mcg PO DAILY 90 days lisinopril 5 mg PO DAILY 90 days semaglutide (Rybelsus) 3 mg PO QAM sumatriptan succinate 25 mg PO Q2-4H PRN 30 days topiramate 25 mg PO BEDTIME 30 days HPI 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: Details: Start time: 1.30pm, End time: 2.15pm ?I spent 40 minutes speaking with the patient on the phone plus an additional 5 minutes reviewing and updating records for a total of 45 minutes HPI Comments Details: Previous weight loss efforts: Wegovy and Rybelsus without weight loss Wakes up: 7.50am, Sleeps: 11pm Breakfast: skips Lunch: 11.30-1.30pm (frozen meal) Dinner: 8pm (Frozen meal) Snacks: 10am (granola bar, crackers), 10pm (chips) Exercise: Has a treadmill at home Fluids: Coffee: none, tea: none, soda: 1-2/wk (regular Coke/Pepsi), juice: 3 glasses per day, ETOH: none PFSH Medical History (Updated 03/15/24 @ 13:41 by Mikael Leivne MD) Back pain Morbid obesity Surgical History No pertinent past surgical history Family History Mother No problems noted. Father Diabetes Social History Housing: House Alcohol intake: current Alcohol intake frequency: holidays/special occasions only Alcohol type: other Patient Tobacco Use Status: Never used Tobacco e-Cigarette/Vaping Use: Never Used Second Hand Smoke Exposure: No service: No Current occupational status: employed Current occupational exposures/hazards: No Cognitive needs: No Hearing needs: No Vision needs: Yes Telehealth Telehealth Telehealth Platform: Telephone Location of provider rendering services: practice address Location of patient: address on file Patient Identification confirmed using: Name, : Yes Telehealth method: voice only Patient verbally consented to treatment: Yes Patient verbally consented to billing insurance company: Yes Patient informed of any privacy concerns related to visit: Yes Minutes spent on Phone/Video with Pt.: 45 Assessment & Plan Assessment & Plan (1) Morbid obesity: Code(s): E66.01 - Morbid (severe) obesity due to excess calories Category: Medical Plan: 1.? Plan for lap sleeve gastrectomy. If diaphragmatic or ventral hernias are present at time of surgery, these will be repaired laparoscopically as well. Risks and complications were discussed in detail including possible conversion to an open procedure, anastomotic leak, bleeding requiring transfusion, small bowel obstruction, , DVT and pulmonary embolism, cardiac, or pulmonary complications, as continuous churn buttermaker complications such as anastomotic ulcer, insufficient weight loss and vitamin deficiencies. I emphasized the importance of close follow-up, adherence to instructions and good communication. 2. You will receive a link of our software marcia to generate an individualized nutritional and exercise plan specific for you. Please send me a screenshot of the plans you will generate 3.? Please send me weight measurements as soon as possible and weekly after that. Always include your diet and exercise plan. 4.?It is important of avoiding and for at least 18 months postoperatively and has been discussed at the infosession. 5. Goal is to lose at least 1.5-2lbs per week 6. Goal to lose 10% of your weight before surgery, which is about 28lbs. Ultimate weight goal: 256lbs before surgery 7. Please follow the diet plan exactly without any change. If you don't like something about the plan or you feel hungry you need to communicate with me so I can help you revise the plan. You should not change the plan yourself. Orders: Orders Hemoglobin A1c Today E66.01 - Morbid (severe) obesity due to excess calories, I10 - Essential (primary) hypertension, K21.9 - Gastro-esophageal reflux disease without esophagitis Complete Blood Count Auto Diff Today E66.01 - Morbid (severe) obesity due to excess calories, I10 - Essential (primary) hypertension, K21.9 - Gastro-esophageal reflux disease without esophagitis Vitamin B12 and Folate Today E66.01 - Morbid (severe) obesity due to excess calories, I10 - Essential (primary) hypertension, K21.9 - Gastro-esophageal reflux disease without esophagitis Vitamin B1 Today E66.01 - Morbid (severe) obesity due to excess calories, I10 - Essential (primary) hypertension, K21.9 - Gastro-esophageal reflux disease without esophagitis TSH reflex Free T4 Today E66.01 - Morbid (severe) obesity due to excess calories, I10 - Essential (primary) hypertension, K21.9 - Gastro-esophageal reflux disease without esophagitis Ferritin Today E66.01 - Morbid (severe) obesity due to excess calories, I10 - Essential (primary) hypertension, K21.9 - Gastro-esophageal reflux disease without esophagitis Vitamin D 25-OH Total Today E66.01 - Morbid (severe) obesity due to excess calories, I10 - Essential (primary) hypertension, K21.9 - Gastro-esophageal reflux disease without esophagitis US abdomen comp w elastography Today E66.01 - Morbid (severe) obesity due to excess calories, I10 - Essential (primary) hypertension, K21.9 - Gastro-esophageal reflux disease without esophagitis XR chest 2V Today E66.01 - Morbid (severe) obesity due to excess calories, I10 - Essential (primary) hypertension, K21.9 - Gastro-esophageal reflux disease without esophagitis ECG 12 lead EKG Today E66.01 - Morbid (severe) obesity due to excess calories, I10 - Essential (primary) hypertension, K21.9 - Gastro-esophageal reflux disease without esophagitis Insulin Today E66.01 - Morbid (severe) obesity due to excess calories, I10 - Essential (primary) hypertension, K21.9 - Gastro-esophageal reflux disease without esophagitis H Pylori Breath Test Today E66.01 - Morbid (severe) obesity due to excess calories, I10 - Essential (primary) hypertension, K21.9 - Gastro-esophageal reflux disease without esophagitis Lipid Panel Today E66.01 - Morbid (severe) obesity due to excess calories, I10 - Essential (primary) hypertension, K21.9 - Gastro-esophageal reflux disease without esophagitis IRON PROFILE Today E66.01 - Morbid (severe) obesity due to excess calories, I10 - Essential (primary) hypertension, K21.9 - Gastro-esophageal reflux disease without esophagitis Comprehensive Met. Panel Today E66.01 - Morbid (severe) obesity due to excess calories, I10 - Essential (primary) hypertension, K21.9 - Gastro-esophageal reflux disease without esophagitis Zinc Today E66.01 - Morbid (severe) obesity due to excess calories, I10 - Essential (primary) hypertension, K21.9 - Gastro-esophageal reflux disease without esophagitis C Reactive Protein Today E66.01 - Morbid (severe) obesity due to excess calories, I10 - Essential (primary) hypertension, K21.9 - Gastro-esophageal reflux disease without esophagitis Vitamin A Today E66.01 - Morbid (severe) obesity due to excess calories, I10 - Essential (primary) hypertension, K21.9 - Gastro-esophageal reflux disease without esophagitis FL upper GI w air Today E66.01 - Morbid (severe) obesity due to excess calories, I10 - Essential (primary) hypertension, K21.9 - Gastro-esophageal reflux disease without esophagitis Referrals Behavioral Health Referral E66.01 - Morbid (severe) obesity due to excess calories, I10 - Essential (primary) hypertension, K21.9 - Gastro-esophageal reflux disease without esophagitis Nutrition/Dietitian Referral E66.01 - Morbid (severe) obesity due to excess calories, I10 - Essential (primary) hypertension, K21.9 - Gastro-esophageal reflux disease without esophagitis
[2024-03-15 13:48] VITALS: BMI 53.7
== END 2024-03-15 14:16 | disposition home or self-care (01) ==
LOC: HO.HBS 09:00
PROVIDERS: PCP Internal Medicine; Referring Provider Internal Medicine; Visit Provider Surgery
DX: E66.01 Morbid (severe) obesity due to excess calories (principal); Z68.43 Body mass index [BMI] 50.0-59.9, adult
CPT/HCPCS: 99204

== ENCOUNTER → 2024-03-15 09:00 | Outpatient (BNVA) | payer OTHER, SELFPAY | PROVIDERS: PCP Internal Medicine; Visit Provider Surgery ==

== ENCOUNTER 2024-03-16 19:01 | Emergency (ER) | payer OTHER, SELFPAY ==
--- NOTE | ~2024-03-16 | CT_ITS ---
EXAMINATION: CT HEAD WITHOUT CONTRAST CLINICAL INFORMATION: Headache for 3 weeks COMPARISON: None available. TECHNIQUE: Contiguous axial imaging was performed from the skull base to vertex without intravenous administration of contrast. This CT examination was performed using dose optimization techniques as appropriate, variously including the following: *Automated exposure control *Adjustment of mA and/or kV according to patient size (this includes techniques or standardized protocols for targeted exams where dose is matched to indication/reason for exam; i.e. extremities or head) *Use of iterative reconstruction technique DLP: 663 mGy-cm FINDINGS: There is no evidence of acute intracranial hemorrhage or territorial infarction. No abnormal mass-effect or midline shift is seen. Sweeney to white matter differentiation is well preserved. No extra-axial fluid collections are identified. The ventricles are normal in size. There is no abnormal attenuation within the brain parenchyma. The osseous structures and soft tissues are normal. Small fluid level in the left sphenoid sinus. The mastoid air cells are well-aerated. CT/CT head/brain wo IV con IMPRESSION: No acute intracranial pathology.
[2024-03-16 19:51] VITALS: BP 152/99; PULSE 113; RESP 20; TEMP 36.7; O2SAT 99; BMI 54.2
--- NOTE | 2024-03-16 19:58 | ECG_ITS ---
Test Reason : PALPATATIONS Blood Pressure : / mmHG Vent. Rate : 109 BPM Atrial Rate : 109 BPM P-R Int : 120 ms QRS Dur : 090 ms QT Int : 314 ms P-R-T Axes : 037 015 -64 degrees QTc Int : 422 ms Sinus tachycardia Minimal voltage criteria for LVH, may be normal variant ( R in aVL ) T wave abnormality, consider inferior ischemia T wave abnormality, consider anterolateral ischemia Abnormal ECG No previous ECGs available Referred By: Generic ED Physician Electronically Signed By:CANDICE CENTENO
[2024-03-16 20:35] LABS: MANUAL DIFF FLAG NO
[2024-03-16 20:39] LABS: Basophils Absolute Auto 0.1 X10*3/uL (0.0-0.2); Basophils Percent Auto 0.5 % (0-2); Eosinophils Absolute Auto 0.2 X10*3/uL (0.0-0.4); Hematocrit 39.5 % (37.0-47.0); Hemoglobin 13.4 g/dl (12.0-16.0); Imm Gran Abs Auto 0.08 X10*3/uL (0.00-0.03); Imm Gran Pct Auto 0.9 % (0.0-0.4); Lymphocytes Absolute Auto 1.8 X10*3/uL (1.2-4.9); Lymphocytes Percent Auto 19.5 % (20-40); Mean Corpuscular HGB Conc 33.9 g/dl (31.0-35.0); Mean Corpuscular Hemoglobin 27.9 pg (27.0-33.0); Mean Corpuscular Volume 82.1 fL (80.0-98.0); Mean Platelet Volume 9.5 fL (9.4-12.3); Monocytes Absolute Auto 0.6 X10*3/uL (0.1-1.2); Monocytes Percent Auto 6.3 % (2-11); Neutrophils Absolute Auto 6.5 x10*3/uL (2.0-8.3); Neutrophils Percent Auto 70.8 % (45-73); Platelet Count 413 X10*3/uL (160-400); Red Blood Count 4.81 X10*6/uL (4.20-5.50); Red Cell Distribution Width 13.2 % (11.0-16.0); White Blood Count 9.2 X10*3/uL (4.8-10.8)
[2024-03-16 20:51] LABS: Alanine Aminotransferase 27 U/L (0-31); Albumin Level 4.2 g/dL (3.5-5.0); Alkaline Phosphatase 79 U/L (39-117); Anion Gap 17 (12-20); Aspartate Amino Transferase 15 U/L (5-31); Bilirubin Total 0.2 mg/dL (0.0-1.0); Blood Urea Nitrogen 9 mg/dL (9-16); Calcium 9.6 mg/dL (8.4-10.2); Carbon Dioxide 23 mmol/L (22-29); Chloride 104 mmol/L (96-108); Creatinine Clr Calc Pharmacy 158.4; Estimated Glomerular Filt Rate > 60; Glucose Random 114 mg/dL (60-115); Potassium 3.8 mmol/L (3.3-5.1); Sodium 140 mmol/L (135-145); Total Protein 7.8 g/dL (6.5-8.0)
[2024-03-16 21:02] LABS: Troponin-I High Sensitivity < 2.7 ng/L (<3.5-17.0)
[2024-03-16 21:58] VITALS: BP 119/80; PULSE 104; RESP 16; TEMP 37; O2SAT 97
--- NOTE | 2024-03-16 22:03 | PC.NURSE ---
Pt aox4 resting at the bedside. No apparent distress noted. VSS. Reports tension headache, 5/10, x 3 wks with feeling of nausea. Reports taking Tylenol with minimal effect headache comes back . Urine cup provided for urine sample. Pending physician eval. Monitoring is ongoing.
[2024-03-16 22:35] LABS: Color Urine Yellow; Glucose Urine UA Negative (Negative); Leukocyte Esterase Urine Small (1+) (Negative); Nitrite Urine Negative (Negative); PH 5.5 (5.0-9.0); Specific Gravity - Urine 1.025 (1.005-1.025); UMIC TRIGGER UACC YES; Urine Blood Negative (Negative); Urine Ketones Trace mg/dL (Negative); Urine Pregnancy NEGATIVE (NEGATIVE); Urine Protein Negative (Neg-Trace)
[2024-03-16 22:36] LABS: UPreg QC Valid YES
[2024-03-16 22:37] LABS: Appearance Urine Hazy
[2024-03-16 22:51] LABS: Bacteria Urine Trace (None Seen); Hyaline Casts Urine 0-2 /LPF (0-2); RBC Urine 0-2 /HPF (0-2); UACC Culture Trigger YES; WBC Urine 0-5 /HPF (0-5)
[2024-03-17 00:21] LABS: TSH reflex Free T4 2.51 uIU/mL (0.32-4.0)
--- NOTE | 2024-03-17 00:27 | ED.GENADULT ---
HPI - General Adult General Chief complaint: Headache Stated complaint: head tension, nausea, dizziness Time Seen by Provider: 03/16/24 23:19 Source: patient Mode of arrival: ambulatory Limitations: no limitations History of Present Illness HPI narrative: 23-year-old female with a history of migraines and hypertension, and tachycardia presents to the ED for headache, nausea, and dizziness for 3 weeks. Patient's secondary complaint is chronic palpitations for years. Patient presently denies having any palpitation, chest pain or shortness of breath. Patient denies any leg swelling, calf pain, coughing up blood, fever, or chills. Patient's main complaint presently in the ED he just headache, nausea and dizziness occurring for the past 2 weeks. Patient states she is not on any migraine regimen. patient denies any facial droop, slurred speech, neck stiffness, rash, paralysis of extremities, or loss of vision. Related Data Home Medications ?Medication ?Instructions ?Recorded ?Confirmed semaglutide 3 mg tablet (Rybelsus) 3 mg PO QAM 12/29/23 03/15/24 Previous Rx's ?Medication ?Instructions ?Recorded cholecalciferol (vitamin D3) 50 50 mcg PO DAILY 90 days #90 caps 12/29/23 mcg (2,000 unit) capsule lisinopril 5 mg tablet 5 mg PO DAILY 90 days #90 tabs 02/04/24 sumatriptan succinate 25 mg tablet 25 mg PO Q2-4H PRN migraine 03/08/24 headache 30 days #9 tabs topiramate 25 mg tablet 25 mg PO BEDTIME 30 days #30 tabs 03/08/24 [id number]-mdvhdpmparwzt-mziljaws 1 cap PO Q6H PRN pain 5 days #20 03/17/24 50 mg-300 mg-40 mg capsule caps (Fioricet) naproxen 500 mg tablet 500 mg PO BID PRN pain 7 days #14 03/17/24 tabs Allergies Allergy/AdvReac Type Severity Reaction Status Date / Time wegovy AdvReac Intermediate Abdominal Uncoded 03/16/24 19:56 Pain, nausea and vomiting and constipation Review of Systems Review of Systems: Headache, nausea, dizziness Yes all other systems are reviewed and are negative [facility] Past Medical History Medical History (Updated 03/18/24 @ 00:00 by Background Daemon) Back pain Morbid obesity Surgical History No pertinent past surgical history Family History Family History Mother No problems noted. Father Diabetes Social History Social History Housing: House Alcohol intake: current Alcohol intake frequency: does not drink Alcohol type: other Patient Tobacco Use Status: Never used Tobacco Smoked in Last 30 Days: No e-Cigarette/Vaping Use: Never Used Second Hand Smoke Exposure: No Use of substances other than those prescribed or required for medical reasons: No Advance Directives: No Advance Directives Information Provided: No Do you have a plan to hurt others: No Plan Patient : No service: No Current occupational status: employed Current occupational exposures/hazards: No Cognitive needs: No Hearing needs: No Vision needs: Yes Physical Exam ED Vital Signs: Vital Signs - 24 hr 03/16/24 19:51 03/16/24 21:58 Temperature 98.1 F 98.6 F Pulse Rate 113 H 104 H Respiratory Rate 20 16 Blood Pressure 152/99 H 119/80 Pulse Oximetry 99 97 Oxygen Delivery Method Room Air Room Air BMI result Body Mass Index 54.2 Const General: cooperative, healthy appearing, comfortable, no acute distress, well developed, alert, awake and Physically active Orientation/consciousness: oriented to person, oriented to place, oriented to time and patient oriented x3 HENMT Head: Yes normal to inspection, Yes No palpable skull fracture present, Yes normocephalic and Yes atraumatic Ears: hearing grossly normal bilaterally, external ears normal, TM's normal bilaterally, TM normal on the right, TM normal on the left, EAC's normal, mastoids normal and no periauricular adenopathy Throat: Yes posterior oropharynx normal, Yes tonsils normal and Yes uvula midline Eyes Other: Negative nystagmus. General: appearance normal, both eyes and all related structures Visual Grant: normal visual grant by confrontation Alignment and Position: alignment normal Periorbital: periorbital findings normal Eyelids: Yes eyelids normal Conjunctivae: conjunctivae normal Sclerae: sclerae normal Corneas: corneas normal Pupils: Equal, round and reactive pupils present EOM: EOMs intact bilaterally Direct Ophthalmoscopy: normal light reflex Neck Neck: Yes normal visual inspection, Yes full ROM, Yes no lymphadenopathy, Yes no meningeal signs, Yes trachea midline, Yes supple, No anterior neck swelling and No tender Chest Chest palpation & inspection: normal inspection of the chest and normal palpation of entire chest wall Resp Effort & Inspection: normal respiratory effort and able to speak in complete sentences Auscultation: clear to auscultation bilaterally Cardio Jugular venous distension: no JVD Heart sounds: S1 normal heart sound present and S2 normal heart sound present GI Inspection: Yes normal to inspection Palpation (GI): Soft to palpation, not firm, nontender, no guarding and not rigid General: Yes no CVA tenderness Back/Spine/Pelvis Back: no CVA tenderness and No back tenderness Skin General skin exam: no rashes or lesions noted, elasticity normal and turgor normal Neuro General: oriented to person, oriented to place, oriented to time, patient oriented x3, gait normal, tone normal, moves all extremities, Normal light touch and pain sensation, no meningeal signs, no focal motor deficits, CN's II-XI intact bilaterally and normal sensation to monofilament Cranial nerves: Yes Equal, round and reactive pupils present Extrem Other: Bilateral lower extremity negative for swelling, pitting edema, calf tenderness General: Yes normal to inspection, Yes full ROM and Yes capillary refill normal Psych Appearance: grossly normal, well kempt and not disheveled Medications Administered Discontinued Medications Generic Name Dose Route Start Last Admin Trade Name Freq PRN Reason Stop Dose Admin Acetaminophen/Butalbital/Caffeine 1 tab 03/17/24 01:32 03/17/24 02:13 Butalb/Acetamin/Caff 50/325/40 Tablet PO 03/17/24 01:33 1 tab ONCE ONE Administration Calcium Carbonate 750 mg 03/17/24 02:38 03/17/24 02:46 Calcium Carbonate 750 Mg Tab.Chew PO 03/17/24 02:39 750 mg ONCE ONE Administration Ketorolac Tromethamine 30 mg 03/17/24 01:32 03/17/24 02:14 Ketorolac Tromethamine 30 Mg/Ml Vial IM 03/17/24 01:33 30 mg ONCE ONE Administration Metoclopramide HCl 10 mg 03/17/24 02:04 03/17/24 02:13 Metoclopramide Hcl 10 Mg/2 Ml Vial IM 03/17/24 02:05 10 mg ONCE ONE Administration Medical Decision Making Medical Decision Making [facility] Narrative: Patient is here female presents ED for headache nausea vomiting with the past 3 weeks. Patient denies any chest pain, shortness of breath, neck swelling, calf pain, coughing up blood, fever, chills, or neck stiffness. Head CT scan was ordered repeat troponin ordered. Thyroid levels ordered. Not suspecting PE. Patient denies any chest pain presently. Patient denies any palpitation presently. Thyroid levels added. NIH Score 0. 2:26pm: Head CT scan normal. Thyroid level normal. EKG negative STEMI. Troponin negative. SARS negative. Not suspecting stroke, meningitis, enecephalitis, carotid dissection, brain aneurysm, AK, or seizure. Differential Diagnosis Differential Diagnoses: The differential diagnosis associated with the presentation includes Admission/Observation Consideration of admission/observation: Escalation of care including admission/observation considered Lab Data [facility] Lab Attestation statement: I reviewed the patient's lab results. 03/16/24 20:26 03/16/24 20:26 Labs: Lab Results 03/16/24 03/16/24 03/17/24 Range/Units 20:26 22:22 01:18 WBC 9.2 (4.8-10.8) X10*3/uL RBC 4.81 (4.20-5.50) X10*6/uL Hgb 13.4 (12.0-16.0) g/dl Hct 39.5 (37.0-47.0) % MCV 82.1 (80.0-98.0) fL MCH 27.9 (27.0-33.0) pg MCHC 33.9 (31.0-35.0) g/dl RDW 13.2 (11.0-16.0) % Plt Count 413 H (160-400) X10*3/uL MPV 9.5 (9.4-12.3) fL Immature Gran % (Auto) 0.9 H (0.0-0.4) % Neut % (Auto) 70.8 (45-73) % Lymph % (Auto) 19.5 L (20-40) % Piatt % (Auto) 6.3 (2-11) % Eos % (Auto) 2.0 (0-4) % Baso % (Auto) 0.5 (0-2) % Lymph # (Auto) 1.8 (1.2-4.9) X10*3/uL Piatt # (Auto) 0.6 (0.1-1.2) X10*3/uL Eos # (Auto) 0.2 (0.0-0.4) X10*3/uL Baso # (Auto) 0.1 (0.0-0.2) X10*3/uL Abs Immat Gran (auto) 0.08 H (0.00-0.03) X10*3/uL Absolute Neuts (auto) 6.5 (2.0-8.3) x10*3/uL Absolute Nucleated RBC 0.000 (0.0-0.012) X10*3/uL Nucleated RBC % (auto) 0.0 (0.0-0.2) /100WBC PT 12.3 (11.1-13.3) SEC INR 1.0 (0.9-1.1) APTT 40.3 H (26.0-36.8) SEC Sodium 140 (135-145) mmol/L Potassium 3.8 (3.3-5.1) mmol/L Chloride 104 (96-108) mmol/L Carbon Dioxide 23 (22-29) mmol/L Anion Gap 17 (12-20) BUN 9 (9-16) mg/dL Creatinine 0.71 (0.5-1.4) mg/dL Estim Creat Clear Calc 158.4 Estimated GFR > 60 Random Glucose 114 (60-115) mg/dL Calcium 9.6 (8.4-10.2) mg/dL Total Bilirubin 0.2 (0.0-1.0) mg/dL AST 15 (5-31) U/L ALT 27 (0-31) U/L Alkaline Phosphatase 79 (39-117) U/L Troponin I High Sens < 2.7 < 2.7 (<3.5-17.0) ng/L Total Protein 7.8 (6.5-8.0) g/dL Albumin 4.2 (3.5-5.0) g/dL TSH 2.51 (0.32-4.0) uIU/mL Urine Color Yellow Urine Appearance Hazy Urine pH 5.5 (5.0-9.0) Ur Specific [place] 1.025 (1.005-1.025) Urine Protein Negative (Neg-Trace) mg/dL Urine Glucose (UA) Negative (Negative) mg/dL Urine Ketones Trace (Negative) mg/dL Urine Blood Negative (Negative) Urine Nitrite Negative (Negative) Ur Leukocyte Esterase Small (1+) H (Negative) Urine RBC 0-2 (0-2) /HPF Urine WBC 0-5 (0-5) /HPF Ur Squamous Epith Cells 3-5 (0-2) /HPF Urine Bacteria Trace (None Seen) Hyaline Casts 0-2 (0-2) /LPF Urine Test NEGATIVE (NEGATIVE) Influenza Type A (PCR) NEGATIVE (Negative) Influenza Type B (PCR) NEGATIVE (Negative) RSV RNA Qual (PCR) NEGATIVE (Negative) SARS-CoV-2 RNA (RT-PCR) NEGATIVE (Negative) Independent Interpretation I performed an independent interpretation of an: EKG (Sinus tach) and CT Scan Radiology Impression Discussion of test interpretation with radiology: I have reviewed the radiologist's reading. Independent Historian Clinical information obtained from an independent historian. History obtained from or confirmed by: Other (Patient) External Record Review External record reviewed: Other (Visits) Prescription Management I considered prescription management with: Pain Medication Discharge Plan Discharge Clinical Impression: Headache, Migraine Patient Disposition: Home, Self-Care Instructions: Migraine Headache (ED), Tension Headache (ED) Additional Instructions: Recommend follow-up with your primary care provider and neurologist. Return to the ED immediately for any slurred speech, facial droop, paralysis of extremities, nausea, vomiting, loss of vision, change in vision, neck stiffness, fever, chills, chest pain, shortness of breath, abdominal pain, rash, chest pain inspiration, leg swelling, palpitations, calf pain, or any other concerning symptoms. Prescriptions: New naproxen 500 mg tablet 500 mg PO BID PRN (Reason: pain) 7 Days Qty: 14 0RF svbcsebnfw-rzaldxyoohhvu-fbtb [Fioricet] 50-300-40 mg capsule 1 cap PO Q6H PRN (Reason: pain) 5 Days Qty: 20 0RF No Action cholecalciferol (vitamin D3) 50 mcg (2,000 unit) capsule 50 mcg PO DAILY 90 Days Qty: 90 1RF lisinopril 5 mg tablet 5 mg PO DAILY 90 Days Qty: 90 1RF topiramate 25 mg tablet 25 mg PO BEDTIME 30 Days Qty: 30 2RF sumatriptan succinate 25 mg tablet 25 mg PO Q2-4H PRN (Reason: migraine headache) 30 Days Qty: 9 2RF Rx Instructions: do not exceed 8 doses per 24 hrs Rybelsus 3 mg tablet 3 mg PO QAM Referrals: Shelley Bryant MD [Physician] - (Migraine/headache exacerbation) Stand Alone Forms: Work/School Release Interventions: ED Discharge Assessment Last Done: 03/17/24 03:16 Discharge Date/Time: 03/17/24 03:18 Print Language: Korean
[2024-03-17 01:33] LABS: Prothrombin Time 12.3 SEC (11.1-13.3)
[2024-03-17 01:35] LABS: Partial Thromboplastin Time 40.3 SEC (26.0-36.8)
[2024-03-17 01:48] LABS: Troponin-I High Sensitivity < 2.7 ng/L (<3.5-17.0)
[2024-03-17 02:01] LABS: Influenza A PCR NEGATIVE (Negative); Influenza B PCR NEGATIVE (Negative); Resp Syncy Virus RNA Qual PCR NEGATIVE (Negative); SARS COV2 PCR INHOUSE NEGATIVE (Negative)
[2024-03-17] MEDS: Metoclopramide HCl 10 MG/2 ML VIAL IM (02:13)
[2024-03-17] MEDS: Butalb/Acetamin/Caff 50/325/40 TABLET 1 TAB PO (02:13)
[2024-03-17] MEDS: Ketorolac Tromethamine 30 MG/ML VIAL IM (02:14)
[2024-03-17] MEDS: Calcium Carbonate 750 MG TAB.CHEW PO (02:46)
[2024-03-17 03:16] VITALS: BP 116/74; PULSE 98; RESP 18; TEMP 36.6; O2SAT 98
== END 2024-03-17 03:18 | disposition home or self-care (01) ==
PROVIDERS: Physician Assistant; Emergency Provider Emergency Medicine Emergency Medical Services; PCP Internal Medicine
DX: G43.909 Migraine, unspecified, not intractable, without status migrainosus (principal); I10 Essential (primary) hypertension; Z03.818 Encounter for observation for suspected exposure to other biological agents ruled out
CPT/HCPCS: 0241U; 36415; 70450; 80053; 81001; 81025; 84443; 84484; 85025; 85610; 85730; 87086; 93005; 96372; 99284; 99285; J1885; J2765

== ENCOUNTER → 2024-03-16 19:58 | Outpatient (BNV) | payer OTHER, SELFPAY | PROVIDERS: Emergency Provider Emergency Medicine Emergency Medical Services; PCP Internal Medicine; Visit Provider Internal Medicine | DX: R00.0 Tachycardia, unspecified (principal); R94.31 Abnormal electrocardiogram [ECG] [EKG] | CPT/HCPCS: 93010 ==

== ENCOUNTER 2024-03-20 07:17 | Outpatient (REF) | payer OTHER, SELFPAY ==
--- NOTE | ~2024-03-20 | XR_ITS ---
EXAMINATION: XR CHEST CLINICAL INFORMATION: Morbid obesity due to excess calories. COMPARISON: 01/27/2017 TECHNIQUE: 2 views of the chest were obtained. FINDINGS: The lungs are hypoexpanded. No focal consolidation. No pleural effusion. Cardiac silhouette is within normal limits XR/XR chest 2V IMPRESSION: No acute abnormality.
[2024-03-20 07:46] LABS: MANUAL DIFF FLAG NO
[2024-03-20 08:02] LABS: Appearance Urine Cloudy; Color Urine Yellow; Glucose Urine UA Negative (Negative); Leukocyte Esterase Urine Moderate (2+) (Negative); Nitrite Urine Negative (Negative); PH 5.5 (5.0-9.0); UMIC TRIGGER UACC YES; Urine Blood Negative (Negative); Urine Ketones Trace mg/dL (Negative); Urine Protein Trace mg/dL (Neg-Trace)
[2024-03-20 08:03] LABS: Basophils Percent Auto 0.4 % (0-2); Eosinophils Absolute Auto 0.1 X10*3/uL (0.0-0.4); Eosinophils Percent Auto 1.9 % (0-4); Hemoglobin 13.3 g/dl (12.0-16.0); Imm Gran Abs Auto 0.03 X10*3/uL (0.00-0.03); Imm Gran Pct Auto 0.4 % (0.0-0.4); Lymphocytes Absolute Auto 1.7 X10*3/uL (1.2-4.9); Lymphocytes Percent Auto 22.6 % (20-40); Mean Corpuscular HGB Conc 32.4 g/dl (31.0-35.0); Mean Corpuscular Hemoglobin 27.3 pg (27.0-33.0); Mean Platelet Volume 9.6 fL (9.4-12.3); Monocytes Absolute Auto 0.4 X10*3/uL (0.1-1.2); Monocytes Percent Auto 5.6 % (2-11); Neutrophils Percent Auto 69.1 % (45-73); Platelet Count 412 X10*3/uL (160-400); Red Blood Count 4.88 X10*6/uL (4.20-5.50); Red Cell Distribution Width 13.3 % (11.0-16.0); White Blood Count 7.3 X10*3/uL (4.8-10.8)
[2024-03-20 08:15] LABS: Estimated Average Glucose 108 mg/dL; Hemoglobin A1c % 5.4 % (<6.0)
[2024-03-20 08:34] LABS: Bacteria Urine Trace (None Seen); RBC Urine 0-2 /HPF (0-2); Renal Epithelial Cells Urine Present; Transitional Epi Cells Urine Present; UACC Culture Trigger YES; WBC Urine 21-50 /HPF (0-5)
[2024-03-20 09:13] LABS: Alanine Aminotransferase 34 U/L (0-31); Albumin Level 4.2 g/dL (3.5-5.0); Alkaline Phosphatase 81 U/L (39-117); Anion Gap 15 (12-20); Aspartate Amino Transferase 25 U/L (5-31); Bilirubin Total 0.4 mg/dL (0.0-1.0); Blood Urea Nitrogen 9 mg/dL (9-16); C Reactive Protein 2.71 mg/dL (< or = 0.50); Calcium 9.7 mg/dL (8.4-10.2); Carbon Dioxide 24 mmol/L (22-29); Chloride 106 mmol/L (96-108); Cholesterol 193 mg/dL (<200); Estimated Glomerular Filt Rate > 60; Ferritin 82 ng/mL (10-122); Glucose Random 91 mg/dL (60-115); HDL Cholesterol 30 mg/dL (>40); Iron 60 mcg/dL (30-160); LDL Cholesterol Calculated 132 mg/dL (<100); Percent Iron Saturation 21 % (15-50); Potassium 3.9 mmol/L (3.3-5.1); Sodium 141 mmol/L (135-145); TSH reflex Free T4 1.14 uIU/mL (0.32-4.0); Total Iron Binding Capacity 280 mcg/dL (228-428); Total Protein 7.8 g/dL (6.5-8.0); Triglycerides 156 mg/dL (<150); Unsaturated Iron Binding 220 ug/dL; Vitamin D 25-OH Total 20.3 ng/mL (>30)
[2024-03-20 09:17] LABS: Folate 8.3 ng/mL (> or = 4.0); Vitamin B12 356 pg/mL (200-900)
[2024-03-20 12:45] LABS: Insulin 41 uU/mL (2-29)
[2024-03-23 12:38] LABS: Zinc 66 mcg/dL (60-130)
[2024-03-25 03:43] LABS: Vitamin A 38 mcg/dL (38-98)
[2024-03-28 11:14] LABS: Vitamin B1 15 nmol/L (8-30)
== END 2024-03-20 07:18 | disposition home or self-care (01) ==
LOC: HO.XRAY 07:17
PROVIDERS: PCP Internal Medicine; Visit Provider Surgery
DX: E66.01 Morbid (severe) obesity due to excess calories (principal); I10 Essential (primary) hypertension; K21.9 Gastro-esophageal reflux disease without esophagitis
CPT/HCPCS: 36415; 71046; 80053; 80061; 81001; 81003; 82306; 82607; 82728; 82746; 83036; 83525; 83540; 84425; 84443; 84590; 84630; 85025; 86140; 87086

== ENCOUNTER 2024-03-23 13:34 | Outpatient (AMB) | payer OTHER, SELFPAY ==
--- NOTE | 2024-03-23 13:34 | A.OFFWM_ITS ---
Intake Intake Visit Reasons: (TV) BH Intake Allergies wegovy Adverse Reaction (Intermediate, Uncoded 03/16/24 19:56) Abdominal Pain, nausea and vomiting and constipation [facility] Medical History (Updated 03/23/24 @ 13:50 by Celia Choi) Back pain Morbid obesity Surgical History No pertinent past surgical history Family History Mother No problems noted. Father Diabetes Social History Housing: House Alcohol intake: current Alcohol intake frequency: does not drink Alcohol type: other Patient Tobacco Use Status: Never used Tobacco e-Cigarette/Vaping Use: Never Used Second Hand Smoke Exposure: No service: No Current occupational status: employed Current occupational exposures/hazards: No Cognitive needs: No Hearing needs: No Vision needs: Yes Behavioral Health Assessment Weight Management Therapy Therapy Notes Details Patient reported she has been struggling with her weight since she was a teenager. She is looking to have weight loss surgery to help improve her health and quality of life. Pt denied any mental health history and stated that she has never been in therapy int he past or currently, she also has no reported history of alcohol or drug abuse Presenting Concerns Referral Source provider Reason for referral weight loss surgery evaluation Precipitating Event obesity Living Situation Current Living Situation Relative's/Guardian's Onofre At risk of losing current housing? No Satisfied with current living situation? Yes Comments Patient lives with her parents. Food/Weight/Diet Expectations of change weight loss and maintenance History/Relationship with food Pt stated that she would skip breakfast and eat two meals a day, typically microwaved food and also ordering out. She would eat frozen meals, ordering out 3 times a week. Sometimes snacks on chips. Also would wake up in the middle of the night and eat ramen noodle soup. History/Relationship with weight Patient stated that at her heaviest she was close to 300lbs. History/Relationship with dieting Wegovy, and Rybelsus Binge Eating Do you frequently eat large amounts of food in short periods of time, not feeling physically hungry? No Do you feel out of control when you eat a large amount of food in a short period of time? No Do you eat large amounts of food rapidly and typically alone? Yes Night Eating Do you wake up at least once during the night to eat? No If you wake up in the night, do you find that it is necessary to eat something in order to fall back asleep? Yes Do you have little or no appetite in the morning and feel very hungry in the evening, often overeating between dinner and when you go to bed? Yes Social History Family history and relationship Pt stated that her father is over 400lbs and her mother was as well however had weight loss surgery ten years. She is the youngest of three siblings. Her sister just went through weight loss surgery last year as well. Brother is also overweight. Parental/Familial swing manager obligations none Developmental history and status none issues known Social support parents Yazdanism/Spirituality none Cultural/Ethnic information [facility] Legal Involvement and History Current or historical involvement with the legal system? none Education Highest grade completed high school Preferred learning style Auditory, Verbal, Written, Learn by doing and Visual Currently enrolled in educational program? No Interested in further educational program? 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 No Meaningful activities sings. goes out occasionally Financial Situation Describe current financial situation Comfortable Financial assistance? None Service Service? No Mental Health and Addiction Treatment Current/Past substance abuse? No Current/Past addictive behavior concerns? No Pain Screening Current pain? No Pain in the last few months? No Medications Is the patient compliant with medications? Yes Does the patient have Cast[place] Guardian in place? Not applicable Does the patient use complimentary health approaches? No Trauma/Abuse History History of trauma? No Assessment & Plan Assessment & Plan (1) Adjustment disorder, unspecified: Code(s): F43.20 - Adjustment disorder, unspecified (2) Morbid obesity: Code(s): E66.01 - Morbid (severe) obesity due to excess calories Plan Patient has no mental health history and no serious barriers. She has family support as well. Patient is cleared for surgery when ready. Telehealth Telehealth Telehealth Platform: Telephone Location of provider rendering services: other Location of patient: other Patient Identification confirmed using: Name, : Yes Telehealth method: voice only Patient verbally consented to treatment: Yes Patient verbally consented to billing [employer] company: Yes Patient informed of any privacy concerns related to visit: Yes Minutes spent on Phone/Video with Pt.: 45 Coding Level of Care Code Tele Psy Diag Eval (34598) Diagnoses Adjustment disorder, unspecified F43.20 Morbid obesity E66.01 Time Spent (min) 45
== END 2024-03-23 13:51 | disposition home or self-care (01) ==
LOC: HO.HBST 13:34
PROVIDERS: PCP Internal Medicine; Visit Provider Counselor Mental Health
DX: F43.20 Adjustment disorder, unspecified (principal); E66.01 Morbid (severe) obesity due to excess calories
CPT/HCPCS: 90791

== ENCOUNTER → 2024-03-23 13:34 | Outpatient (BNVA) | payer OTHER, SELFPAY | PROVIDERS: PCP Internal Medicine; Visit Provider Counselor Mental Health ==

== ENCOUNTER 2024-03-24 09:55 | Outpatient (REF) | payer OTHER, SELFPAY ==
--- NOTE | ~2024-03-24 | US_ITS ---
EXAMINATION: US COMPLETE ABDOMEN WITH LIVER ELASTOGRAPHY CLINICAL INFORMATION: Morbid obesity. COMPARISON: CT abdomen and pelvis dated 02/04/2023. TECHNIQUE: Real-time imaging of the abdominal viscera. Noninvasive ultrasound liver fibrosis assessment is performed using Riley ElastPQ point quantification shear wave elastography (2D-SWE) with a C5-2 MHz transducer. Multiple elastography samples are obtained. FINDINGS: PANCREAS: Normal. The visualized pancreatic neck and proximal body are normal in appearance. The remainder of the pancreas is obscured from visualization by the overlying bowel gas. ABDOMINAL AORTA: The proximal, middle, and distal aortic segments are normal in caliber. INFERIOR VENA CAVA: Largely obscured by overlapping bowel gas. LIVER: The liver shows normal contour and increased echogenicity. No focal lesion or intrahepatic biliary duct dilatation. The right lobe measures 19.0 cm in length. The left lobe measures 13.0 cm in length. Portal flow is towards the liver (hepatopetal). Shear wave liver elastography median stiffness is 1.97 m/s (reference: normal median stiffness is 1.3 m/s or less). IQR/median stiffness to assess sampling precision is 0.12 (reference: good quality data set is IQR/median stiffness of 0.15 or less). GALLBLADDER: Normal. The gallbladder is physiologically distended without evidence of stones, sludge, polyps, wall thickening or pericholecystic fluid. COMMON BILE DUCT: Normal in caliber measuring 0.3 cm in diameter. RIGHT KIDNEY: Normal. No hydronephrosis. No renal calculi or focal parenchymal lesions. The kidney measures 11.2 cm in maximum dimension. LEFT KIDNEY: Normal. No hydronephrosis. No renal calculi or focal parenchymal lesions. The kidney measures 11.4 cm in maximum dimension. SPLEEN: Normal. The spleen measures 9.6 cm in maximum dimension. FREE FLUID: None. US/US abdomen comp w elastography IMPRESSION: 1. There is generalized increase in hepatic echotexture, consistent with fatty infiltration or hepatocellular disease. Please correlate clinically. No focal hepatic mass or intrahepatic biliary dilatation is seen. 2. There is hepatomegaly. 3. Liver elastography: Measurements are suggestive of compensated advanced chronic liver disease but need further test for confirmation. 4. Technically limited ultrasound examination of the pancreas and abdominal great vessels. REFERENCE: Society of Radiologists in Ultrasound Liver Stiffness Thresholds (2020): LIVER STIFFNESS THRESHOLDS: *Liver Stiffness equal or less than 1.3 m/s: High probability of being normal. *Liver Stiffness less than 1.7 m/s: In the absence of other known clinical signs, rules out compensated advanced chronic liver disease. *Liver Stiffness 1.7-2.1 m/s: Suggestive of compensated advanced chronic liver disease but need further test for confirmation. *Liver Stiffness over 2.1 m/s: Rules in compensated advanced chronic liver disease. *Liver Stiffness over 2.4 m/s: Suggestive of clinically significant portal hypertension. QUALITY OF DATA SET: *IQR/Median value equal or less than 0.15 implies a quality data set. *IQR/Median value over 0.15 implies a poor quality data set. SIGNIFICANT CHANGE FROM PRIOR EXAM: Significant change if liver stiffness measurement is 10% or greater from prior exam. OTHER CONSIDERATIONS: The stage of liver fibrosis may be overestimated in the setting of acute hepatitis, liver inflammation, elevated liver function tests, hepatic vascular congestion, obstructive cholestasis, non-fasting state, and infiltrative diseases such as amyloidosis and lymphoma. In some patients with NAFLD, the liver stiffness thresholds for compensated advanced chronic liver disease may be lower. In causes other than viral hepatitis and NAFLD, liver stiffness thresholds are not well established.
== END 2024-03-24 09:56 | disposition home or self-care (01) ==
LOC: HO.US 09:55
PROVIDERS: PCP Internal Medicine; Visit Provider Surgery
DX: E66.01 Morbid (severe) obesity due to excess calories (principal); K21.9 Gastro-esophageal reflux disease without esophagitis; I10 Essential (primary) hypertension
CPT/HCPCS: 76700; 76981

== ENCOUNTER 2024-04-05 07:59 | Outpatient (AMB) | payer OTHER, SELFPAY ==
--- NOTE | 2024-04-05 12:48 | A.OFFVIS_ITS ---
VS Expanded 04/05/24 12:54 Height 5 ft 1 in Weight 283 lb 7 oz BMI 53.5 Intake Visit Reasons: TV Follow Up SWL - 1ST Allergies wegovy Adverse Reaction (Intermediate, Uncoded 03/16/24 19:56) Abdominal Pain, nausea and vomiting and constipation HPI HPI TV Follow Up SWL - 1ST: Details: Start time: 12.46pm, End time: 1pm ?I spent 9 minutes speaking with the patient on the phone plus an additional 5 minutes reviewing and updating records for a total of 14 minutes HPI Comments Details: Did not like the shakes and bars and she could not follow the plan properly [facility] Medical History (Updated 03/23/24 @ 20:17 by Mikael Levine MD) Back pain Morbid obesity Surgical History No pertinent past surgical history Family History Mother No problems noted. Father Diabetes Social History Housing: House Alcohol intake: current Alcohol intake frequency: does not drink Alcohol type: other Patient Tobacco Use Status: Never used Tobacco e-Cigarette/Vaping Use: Never Used Second Hand Smoke Exposure: No service: No Current occupational status: employed Current occupational exposures/hazards: No Cognitive needs: No Hearing needs: No Vision needs: Yes Telehealth Telehealth Telehealth Platform: Telephone Location of provider rendering services: practice address Location of patient: address on file Patient Identification confirmed using: Name, : Yes Telehealth method: voice only Patient verbally consented to treatment: Yes Patient verbally consented to billing insurance company: Yes Patient informed of any privacy concerns related to visit: Yes Minutes spent on Phone/Video with Pt.: 14 Assessment & Plan Assessment & Plan (1) Morbid obesity: Code(s): E66.01 - Morbid (severe) obesity due to excess calories Category: Medical Plan: 1. Plan was changed to a Celebrate Rebuild (2.5 scoops in oat milk) at 9-11am, a Celebrate protein bar at 12-2pm, meal at 3pm (10 forkfuls of protein and 10 forkfuls of salad or vegetables) and one more Celebrate bar at 6-8pm. 2. Continue exercise plan with treadmill with a speed 3mph and incline 2-8. 3. Continue to send me weight measurements weekly on Saturdays
[2024-04-05 12:54] VITALS: BMI 53.5
== END 2024-04-05 13:01 | disposition home or self-care (01) ==
LOC: HO.HBS 07:59
PROVIDERS: PCP Internal Medicine; Visit Provider Surgery
DX: E66.01 Morbid (severe) obesity due to excess calories (principal); Z68.43 Body mass index [BMI] 50.0-59.9, adult
CPT/HCPCS: 99212

== ENCOUNTER → 2024-04-05 07:59 | Outpatient (BNVA) | payer OTHER, SELFPAY | PROVIDERS: PCP Internal Medicine; Visit Provider Surgery ==

== ENCOUNTER 2024-04-14 07:22 | Day surgery (SDC) | payer OTHER, SELFPAY ==
--- NOTE | 2024-04-14 09:04 | HO.ANESPROP2 ---
[facility] Active Problems Active Problems: All Active Problems Abnormal EKG (Acute) Vitamin B12 deficiency (Acute) Vitamin D deficiency (Acute) Adjustment disorder, unspecified (Acute) Back pain (Acute) Morbid obesity (Acute) Tachycardia (Acute) Essential hypertension (Acute) Migraines (Acute) Super-super obese (Acute) Hypovitaminosis D (Acute) Microscopic hematuria (Acute) Past Medical History Medical History Back pain Morbid obesity Family History Family History Mother No problems noted. Father Diabetes Surgical History Surgical History No pertinent past surgical history Social History Social History Housing: House Alcohol intake: current Alcohol intake frequency: does not drink Alcohol type: other Patient Tobacco Use Status: Never used Tobacco e-Cigarette/Vaping Use: Never Used Second Hand Smoke Exposure: No Advance Directives: No Advance Directives Information Provided: Yes service: No Current occupational status: employed Current occupational exposures/hazards: No Cognitive needs: No Hearing needs: No Vision needs: Yes Meds Allergies Allergy/AdvReac Type Severity Reaction Status Date / Time wegovy AdvReac Intermediate Abdominal Uncoded 03/16/24 19:56 Pain, nausea and vomiting and constipation Active Medications: Current Medications Lactated Ringer's (Lr) 1,000 mls @ 80 mls/hr IVCONT .[id number] [facility] Home Medications ?Medication ?Instructions ?Recorded ?Confirmed ?Last Taken ?Type semaglutide 3 mg tablet (Rybelsus) 3 mg PO QAM 12/29/23 03/15/24 Unknown History
[2024-04-14 09:06] VITALS: BMI 52.9
--- NOTE | 2024-04-14 09:09 | HO.ANESPROP2 ---
[facility] Active Problems Active Problems: All Active Problems Abnormal EKG (Acute) Vitamin B12 deficiency (Acute) Vitamin D deficiency (Acute) Adjustment disorder, unspecified (Acute) Back pain (Acute) Morbid obesity (Acute) Tachycardia (Acute) Essential hypertension (Acute) Migraines (Acute) Super-super obese (Acute) Hypovitaminosis D (Acute) Microscopic hematuria (Acute) Past Medical History Medical History Back pain Morbid obesity Functional capacity: independent ambulation Patient : No Family History Family History Mother No problems noted. Father Diabetes Family history of problems with anesthesia: No Surgical History Surgical History No pertinent past surgical history History of Problems with Anesthesia: Unobtainable Social History Social History Housing: House Alcohol intake: current Alcohol intake frequency: does not drink Alcohol type: other Patient Tobacco Use Status: Never used Tobacco e-Cigarette/Vaping Use: Never Used Second Hand Smoke Exposure: No Use of substances other than those prescribed or required for medical reasons: No Advance Directives: No Advance Directives Information Provided: Yes service: No Current occupational status: employed Current occupational exposures/hazards: No Cognitive needs: No Hearing needs: No Vision needs: Yes Meds Allergies Allergy/AdvReac Type Severity Reaction Status Date / Time wegovy AdvReac Intermediate Abdominal Uncoded 03/16/24 19:56 Pain, nausea and vomiting and constipation Active Medications: Current Medications Lactated Ringer's (Lr) 1,000 mls @ 80 mls/hr IVCONT .[id number] [facility] Home Medications ?Medication ?Instructions ?Recorded ?Confirmed ?Last Taken ?Type semaglutide 3 mg tablet (Rybelsus) 3 mg PO QAM 12/29/23 03/15/24 Unknown History Exam Height,Weight and Vital Signs: Height 5 ft 1 in Weight 127.006 kg Airway TM Dist: >3cm Neck ROM: Full Heart: RRR Lungs: CTA Assessment and Plan Assessment Anesthesia Assessment: Anesthesia Plan Discussed Final Anesthetic Review Family History of Problems with Anesthesia: No History of Problems with Anesthesia: Unobtainable ASA Class: III Final Preanesthetic Review: Meds/Allgs Chart Reviewed, Consent Obtained/Reviewed and Anes Risks/Benef Reviewed Patient Risk: Intermediate Procedure Risk: Low Anesthetic Plan Anesthetic Plan: MAC: Disposition: Standard PACU
[2024-04-14 09:11] LABS: UPreg QC Valid YES; Urine Pregnancy NEGATIVE (NEGATIVE)
[2024-04-14] MEDS: Lactated Ringers 1,000 ML 80 ML IVCONT (09:24)
[2024-04-14 09:25] VITALS: BP 133/80; PULSE 112; RESP 16; TEMP 36.4; O2SAT 99
--- NOTE | 2024-04-14 09:56 | P.BOP_ITS ---
Brief Operative Note Date of Service: 04/14/24 Pre-op diagnosis: GERD Post-op diagnosis: same Procedure: PROCEDURE DATE: 04/14/24 PREOPERATIVE DIAGNOSIS: GERD POSTOPERATIVE DIAGNOSIS: ?Same as above. 1) small hiatal hernia, 2) esophagitis grade III PROCEDURE: Cnprimef-oaxyga-fdjjojnxfvgk with biopsies Surgeon: ?Ricardo Levine M.D.. Ph.D. Mobile Home Park Manager: None ? Anesthesia: IV sedation Estimated blood loss: ?Minimal FINDINGS AND PROCEDURE: ? OPERATIVE INDICATIONS: ?The patient is a 23 year old female known to me who is interested in bariatric surgery. The patient has GERD. Based on this information I recommended an upper endoscopy to evaluate the patient's symptoms. Risks and complications of the surgery were discussed with the patient in advance particularly the possibility of perforation or bleeding that may require surgical intervention. The patient understood the risks and was in agreement with the plan. ? PROCEDURE: After informed consent was obtained by the patient, the patient was ?transferred to the Operating Room and was placed in the supine position.? After successful induction of IV sedation, a mouth block was inserted and the patient was placed in the left lateral decubitus position. An upper endoscopy was performed next, the oropharynx and esophagus appeared within the normal limits. There was a small 2-3cm hiatal hernia. The z-line was irregular with tongues of gastric mucosa protruding into the esophagus in 50-75% circumference.. Two biopsies were obtained from the distal esophagus 2-3 cm proximal to the GE junction and two additional biopsies from the GE junction. T he stomach was entered and it appeared to be of normal size. There was no gastritis. There was no stricture or ulcer. A biopsy was obtained from the fundus and the antrum. No significant bleeding was noted from any of the biopsy sites. Retroflexion of the scope revealed a small hiatal hernia. The scope was then advanced into the duodenum which appeared to be normal as well. At that point the duodenum ?and the stomach were decompressed and the scope was withdrawn from the patient's mouth. The patient extubated and was transferred in stable condition to the Recovery Room for further care. I was present and performed all steps of the procedure. There were no residents to assist with this case. Ricardo Levine M.D., Ph.D. Surgeon: Mikael Levine MD Anesthesia: MAC Was an Mobile Home Park Manager used for this Procedure?: No Estimated blood loss (mL): 0 IV fluids (mL): 400 Urine output (mL): 0 (No Wells to record output) Pathology: other (1) antrum x1, 2) fundus x1, 3) GE junction x2, 4) distal esophagus x2) Condition: stable Disposition: PACU
[2024-04-14 10:34] VITALS: BP 122/74; PULSE 106; RESP 18; TEMP 36.6; O2SAT 96
[2024-04-14 10:40] VITALS: BP 138/90; PULSE 111; RESP 16; O2SAT 96
[2024-04-14 10:49] VITALS: BP 118/69; PULSE 115; RESP 16; TEMP 36.4; O2SAT 95
--- NOTE | 2024-04-14 14:37 | HO.POSTANES ---
Post Anesthesia Evaluation Post Anesthesia Evaluation Date of Service: 04/14/24 Vital Signs: Vital Signs Temp Pulse Resp BP Pulse Ox O2 Del Method O2 Flow Rate 04/14/24 10:49 97.5 F 115 H 16 118/69 95 Room Air 04/14/24 10:40 111 H 16 138/90 H 96 Room Air 04/14/24 10:34 97.8 F 106 H 18 122/74 96 Simple Mask 6 04/14/24 09:25 97.6 F 112 H 16 133/80 99 Room Air Anesthesia: Monitored Mental Status: Awake Pain Control: Satisfactory Nausea/Vomiting: None Hydration: Adequate Anesthesia-Related Issues: No Anes. Related Issues
--- NOTE | 2024-04-14 14:38 | HO.POSTANES ---
Post Anesthesia Evaluation Post Anesthesia Evaluation Date of Service: 04/14/24 Vital Signs: Vital Signs Temp Pulse Resp BP Pulse Ox O2 Del Method O2 Flow Rate 04/14/24 10:49 97.5 F 115 H 16 118/69 95 Room Air 04/14/24 10:40 111 H 16 138/90 H 96 Room Air 04/14/24 10:34 97.8 F 106 H 18 122/74 96 Simple Mask 6 04/14/24 09:25 97.6 F 112 H 16 133/80 99 Room Air Anesthesia: Monitored Mental Status: Awake Pain Control: Satisfactory Hydration: Adequate Anesthesia-Related Issues: No Anes. Related Issues
== END 2024-04-14 11:47 | disposition home or self-care (01) ==
PROVIDERS: Anesthesiology; PCP Internal Medicine; Visit Provider Surgery
PROC: 0DJ08ZZ Inspection of Upper Intestinal Tract, Via Natural or Artificial Opening Endoscopic (ICD-10-PCS; CPT 43235; principal; 2024-04-14 10:30)
DX: K20.90 Esophagitis, unspecified without bleeding (principal); K44.9 Diaphragmatic hernia without obstruction or gangrene; K22.9 Disease of esophagus, unspecified; E66.01 Morbid (severe) obesity due to excess calories; Z68.43 Body mass index [BMI] 50.0-59.9, adult; E53.8 Deficiency of other specified B group vitamins; E55.9 Vitamin D deficiency, unspecified; I10 Essential (primary) hypertension
CPT/HCPCS: 43239; 81025; 88305; 88313; 88342; J1596; J1805; J2250; J2704

== ENCOUNTER → 2024-04-14 07:22 | Outpatient (BNV) | payer OTHER, SELFPAY | PROVIDERS: PCP Internal Medicine; Visit Provider Surgery | DX: K21.00 Gastro-esophageal reflux disease with esophagitis, without bleeding (principal) | CPT/HCPCS: 43239 ==

== ENCOUNTER → 2024-04-22 07:40 | Outpatient (REF) | payer OTHER, SELFPAY ==
--- NOTE | 2024-04-22 07:42 | CA_ITS ---
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 The study quality is limited by patients body habitus. Left Ventricle Normal left ventricular cavity size. There is normal left ventricular wall thickness. The left ventricular systolic function is low normal. The visually estimated ejection fraction is between 50-55%. Spectral Doppler is indicative of a normal filling pattern. Right Ventricle Normal right ventricular cavity size. Atria The left atrium is normal in size. Interatrial shunt cannot be excluded. The right atrium is normal in size. Aortic Valve The aortic valve structure and function is likely normal. There is no aortic valve stenosis. There is no aortic valve regurgitation. Mitral Valve The mitral valve was not well visualized. Likely normal mitral valve structure and function. There is no mitral valve regurgitation. There is no mitral valve stenosis. Pulmonic Valve The pulmonic valve was not well visualized. Tricuspid Valve The tricuspid valve was not well visualized. Tricuspid regurgitation envelope is inadequate for calculation of right ventricular systolic pressure. Great Vessels All visible segments of the aorta are normal in size. The pulmonary artery was not well visualized. Venous The inferior vena cava is normal in size. Pericardium/Pleural The pericardium was not well visualized. Prior Study Comparison No prior study available for comparison. Measurements 2D Linear Measurements IVSd: 1.07 0.6-0.9/0.6-1.0 cm LVIDd: 4.54 3.9-5.3/4.2-5.9 cm LVIDd Index: 2.08 2.4-3.2/2.2-3.1 cm/m2 LVIDs: 2.91 2.0-3.6 cm LVPWd: 1.04 0.7-1.1 cm LA Diam: 3.60 2.7-3.8/3.0-4.0 cm LAIDs Index: 1.65 1.5-2.3 cm/m2 LV Mass: 208.52 67-162/88-224 g LV Mass Index: 95.65 43-95/49-115 g/m2 LVOT Diam: 2.20 3.0+(-)1.3 cm 2D Systolic Function EF 4C: 54.10 >55% EF 2C: 53.00 >55% EF BiP: 53.80 >55% Mitral Valve MV Pk E: 0.89 MV PK A: 0.81 MV Decel Time: 126.00 E/A: 1.10 E'Lateral: 11.30 E'Medial: 9.14 E/E' Med: 9.70 E/E' Lat: 7.80 PHT: 37.00 MVA PHT: 5.95 Decel [place]: 7.06 Aortic Valve AoV Pk Jose Maria: 1.56 AoV Mn Jose Maria: 1.13 AoV VTI: 0.28 AoV Pk Grad: 10.00 Aov Mn Grad: 6.00 AMAURI Cont.VTI: 2.29 LVOT LVOT Pk Jose Maria: 0.97 LVOT Mn Jose Maria: 0.69 LVOT VTI: 0.17 LVOT Pk Grad: 4.00 LVOT Mn Grad: 2.00 LVOT Diam: 2.20 LVOT Area: 3.80 Diastolic Function MV Pk E: 0.89 MV Pk A: 0.81 E/A: 1.10 E'Medial: 9.14 E/E' Med: 9.70 E' Laterial: 11.30 E/E' Lat: 7.80 Right Ventricle TAPSE (mm): 24.40 TVS' Jose Maria: 12.30 Tricuspid Valve RA Press: 3.00 Great Vessels Aorta Sinus of Valsalva: 2.80 2.0-3.5 cm Ao Asc: 2.50 2.1-3.4 cm Updated in Other Vendor System with Status of Final Jimmie Zhu MD electronically signed on 04/22/2024 1:31:52 PM with status of Final
--- NOTE | 2024-04-22 07:42 | CA_ITS ---
Acquisition Time: 2024-04-22 09:13:56 Total Exercise Time: 00:05:30 Test Indications: Abnormal ECG Medications: Protocol: KTAIE Max HR: 179 BPM 90% of Pred: 198 BPM Max BP: 182/054 mmHG Max Work Load: 7.0 METS Exercise stress test with exercise 5 min 30 sec of Katie protocol, achieving 88% MPHR, with mild sob, no chest discomfort, without arrythmia, with normotensive response to exerrcise, with abnormal EKG at baseline: T wave inversions inferior and V3-V6 - no significant changes during exercise or reecovery. EKG findings nonspecific. Had Echocardiogram completed today. If further evaluation is needed, then recommend a stress echocardiogram. Test reviewed with Dr Zhu. Referred By: Mikael Levine Overread By: AMY STONE
== END ==
LOC: HO.CARD 07:40
PROVIDERS: PCP Internal Medicine; Visit Provider Surgery
DX: R94.31 Abnormal electrocardiogram [ECG] [EKG] (principal)
CPT/HCPCS: 93017; 93306; Q9957

== ENCOUNTER → 2024-04-22 07:42 | Outpatient (BNV) | payer OTHER, SELFPAY | PROVIDERS: PCP Internal Medicine; Visit Provider Internal Medicine Cardiovascular Disease | DX: R06.02 Shortness of breath (principal); R94.31 Abnormal electrocardiogram [ECG] [EKG] | CPT/HCPCS: 93016; 93018; 93320; 93325; 93350; 93352 ==

== ENCOUNTER 2024-05-04 15:00 | Outpatient (REF) | payer OTHER, SELFPAY ==
[2024-05-04 15:58] LABS: Influenza A PCR NEGATIVE (Negative); Influenza B PCR NEGATIVE (Negative); Resp Syncy Virus RNA Qual PCR NEGATIVE (Negative); SARS COV2 PCR INHOUSE POSITIVE (Negative)
== END 2024-05-04 15:01 | disposition home or self-care (01) ==
LOC: HO.LAB 15:00
PROVIDERS: PCP Internal Medicine; Visit Provider Internal Medicine
DX: R09.89 Other specified symptoms and signs involving the circulatory and respiratory systems (principal)
CPT/HCPCS: 0241U

== ENCOUNTER 2024-05-24 16:42 | Outpatient (AMB) | payer OTHER, SELFPAY ==
[2024-05-24 16:52] VITALS: BP 128/68; PULSE 125; O2SAT 98; BMI 52.5
--- NOTE | 2024-05-24 16:52 | A.OFFPC_ITS ---
Vital Signs 05/24/24 16:52 Height 5 ft 1 in Weight 278 lb BMI 52.5 BP 128/68 Blood Pressure Location Lt brachial Position Sitting Pulse 125 H Pulse Source Pulse Oximeter Pulse Oximetry (%) 98 Oxygen Delivery Method Room Air Intake Visit Reasons: pe Carton Inspector Required: No Accompanied by: Self / Same As Patient Allergies wegovy Adverse Reaction (Intermediate, Uncoded 05/24/24 17:05) Abdominal Pain, nausea and vomiting and constipation Medication List - Last Reconciled 05/24/24 by Brunilda Harper MD [id number] 50-300-40 mg (Fioricet) 1 cap PO Q6H PRN 5 days cholecalciferol (vitamin D3) 50 mcg PO DAILY 90 days cholecalciferol (vitamin D3) 125 mcg PO DAILY lisinopril 5 mg PO DAILY 90 days mecobalamin (vitamin B12) 1,000 mcg sublingual DAILY naproxen 500 mg PO BID PRN 7 days nirmatrelvir-ritonavir 300 mg (150 mg x 2)-100 mg (Paxlovid) 3 ea PO PER PKG DIR 5 days sumatriptan succinate 25 mg PO Q2-4H PRN 30 days topiramate 25 mg PO BEDTIME 30 days Tobacco use date assessed: 12/29/23 Dental Screening Dental Screen Date: 05/24/24 Did you have a dental visit in the last 12 months?: Yes Did you have a dental problem in the last 6 months where you did not have access to dental care?: No Was dental information given to patient?: Patient has dentist HPI HPI Comments History of Present Illness Details This is a 23-year-old female with morbid obesity that comes for her physical exam. She follows with weight management for her weight. Last Pap smear was 2022. She complains of occasional palpitations and I will order Holter monitor. She also complains itchy scalp and would like to see Dermatology. [facility] Medical History (Updated 05/24/24 @ 17:38 by Brunilda Harper MD) Back pain Morbid obesity Surgical History No pertinent past surgical history Family History Mother No problems noted. Father Diabetes Social History (Updated 05/24/24 @ 17:12 by Brunilda Harper MD) Housing: House Alcohol intake: never Patient Tobacco Use Status: Never used Tobacco e-Cigarette/Vaping Use: Never Used Second Hand Smoke Exposure: No service: No Current occupational status: employed Current occupational exposures/hazards: No Cognitive needs: No Hearing needs: No Vision needs: Yes Questionnaire PHQ-9 Over the last 2 weeks, how often have you been bothered by any of the following problems? 1. Little interest or pleasure in doing things: not at all 2. Feeling down, depressed, or hopeless: not at all 3. Trouble falling or staying asleep, or sleeping too much: not at all 4. Feeling tired or having little energy: not at all 5. Poor appetite or overeating: not at all 6. Feeling bad about yourself - or that you are a failure or have let yourself or your family down: not at all 7. Trouble concentrating on things, such as reading the newspaper or watching television: not at all 8. Moving or speaking so slowly that other people could have noticed. Or the opposite - being so fidgety or restless that you have been moving around a lot more than usual: not at all 9. Thoughts that you would be better off or of hurting yourself in some way: not at all Total score: 0 Depression Screening Interpretation: Negative Depression Screening Done: Yes 92145 - PHQ-9 Billing: Yes Source: Developed by Drs. Curt Sorensen, Shamir French and colleagues, with an educational choco from [employer]. Thrive Questionnaire Date Thrive assessed: 12/29/23 AUDIT C Alcohol Use Questionnaire (AUDIT-C) 1. How often do you have a drink containing alcohol?: Monthly or less 2. How many drinks containing alcohol do you have on a typical day when you are drinking?: 1 or 2 3. How often do you have six or more drinks on one occasion?: Never Total Score: 1 Score Reviewed/Action Taken: No EMMA-7 AMB Questionnaire EMMA-7 Date EMMA - 7 assessed: 12/29/23 Source: Developed by Drs. Curt Sorensen, Shamir Fernch and colleagues, with an educational choco from [employer]. Review of Systems Const All systems reviewed & are unremarkable except as noted in HPI and below Card Denies chest pain at rest, Denies chest pain with activity, Denies edema, Denies irregular heart rhythm, Denies claudication, Denies dyspnea, Denies dyspnea on exertion, Denies orthopnea, Denies paroxysmal nocturnal dyspnea and Denies slow heart rate Resp Denies cough, Denies dyspnea and Denies dyspnea on exertion GI Denies abdominal pain, Denies change in bowel habits, Denies excessive flatus, Denies nausea and Denies vomiting Denies urinary incontinence, Denies urinary hesitancy and Denies urinary urgency Musc Denies abnormal gait, Denies atrophy, Denies deformity and Denies limited range of motion Skin/Breast Denies bleeding lesions, Denies changing lesions and Denies rash Neuro Denies abnormal gait, Denies behavioral changes, Denies confusion and Denies lack of coordination Psych Denies behavioral changes and Denies confusion Physical exam (Primary Care) Vital Signs: Last Vital Signs Pulse 125 H 05/24/24 16:52 BP 128/68 05/24/24 16:52 Pulse Ox 98 05/24/24 16:52 Oxygen Delivery Method Room Air 05/24/24 16:52 BMI result Body Mass Index 52.5 BMI Assessment/Plan discussion: High BMI High, discussed plan: lifestyle, weight reduction, dietary and physical activity Tobacco/Smoking Status: Tobacco use Status Tobacco use date assessed 12/29/23 05/24/24 16:53 Patient Tobacco Use Status Never used Tobacco 05/24/24 17:12 e-Cigarette/Vaping Use Never Used 05/24/24 17:12 PHQ-9: PHQ-9 Score PHQ-9: Total score 0 05/24/24 17:24 Depression Screening Interpretation: Negative Thrive Assessment: Date of Thrive Assessment Date Thrive assessed 12/29/23 05/24/24 16:53 Const General: No confusion Orientation/consciousness: patient oriented x3 and No confusion HENMT Head: Yes normal to inspection, Yes normocephalic and Yes atraumatic Ears: external ears normal Eyes General: appearance normal, both eyes and all related structures Eyelids: Yes eyelids normal Conjunctivae: conjunctivae normal Neck Neck: Yes normal visual inspection and Yes supple Resp Effort & Inspection: normal respiratory effort Auscultation: clear to auscultation bilaterally Cardio Jugular venous distension: no JVD Rate: regular rate Rhythm: regular rhythm Heart sounds: S1 normal heart sound present and S2 normal heart sound present GI Inspection: Yes normal to inspection Palpation (GI): Soft to palpation and nontender Auscultation: normal bowel sounds Skin General skin exam: no rashes or lesions noted Neuro General: patient oriented x3, no focal motor deficits and No confusion Extrem General: Yes full ROM Psych Appearance: grossly normal Assessment and Plan Assessment & Plan (1) Physical exam: Code(s): Z00.00 - Encounter for general adult medical examination without abnormal findings Plan: Repeat in a year. (2) Morbid obesity: Code(s): E66.01 - Morbid (severe) obesity due to excess calories Plan: Follow-up with weight management. (3) Seborrheic dermatitis of scalp: Code(s): L21.9 - Seborrheic dermatitis, unspecified Plan: Start selenium shampoo. Referred to Dermatology. (4) Palpitations: Code(s): R00.2 - Palpitations Plan: Holter monitor ordered. Orders: Orders ECG holter monitor 48 hour Today R00.2 - Palpitations Referrals Dermatology Referral L21.9 - Seborrheic dermatitis, unspecified Medications: New topiramate 50 mg PO BEDTIME 30 tabs 3RF 30 days selenium sulfide 2.25% lather into wet hair; leave in place for approximately 3 mins ; rinse 5 mL topical 2XW 180 mL 1RF 30 days Discontinued topiramate Discontinued Reason: Patient Completed Course 25 mg PO BEDTIME 30 days 30 tabs 2RF Coding Level of Care Code Est Pt Level 3 (94492) Est Pt Prev Care 18-39y(26824) Diagnoses Physical exam Z00.00 Morbid obesity E66.01 Seborrheic dermatitis of scalp L21.9 Palpitations R00.2 Time Spent (min) 32
== END 2024-05-24 17:22 | disposition home or self-care (01) ==
PROVIDERS: PCP Internal Medicine; Visit Provider Internal Medicine
DX: Z00.00 Encounter for general adult medical examination without abnormal findings (principal); L21.9 Seborrheic dermatitis, unspecified; R00.2 Palpitations
CPT/HCPCS: 99213; 99395

== ENCOUNTER → 2024-06-02 06:46 | Outpatient (REF) | payer OTHER, SELFPAY ==
--- NOTE | 2024-06-02 07:19 | HM_ITS ---
* Total monitoring time 2 days. * Underlying rhythm is sinus with an average rate of 98/Min. About 45% of the time, rate > 100/Min. * Rare ventricular ectopy. * No significant pauses or AV blocks. * Patient markers associated with sinus rhythm. Diary symptoms of sharp pain, chest tightness correlates with sinus rhythm and mild sinus tachycardia. MTDD
== END ==
LOC: HO.CARD 06:46
PROVIDERS: PCP Internal Medicine; Visit Provider Internal Medicine
DX: R00.2 Palpitations (principal)
CPT/HCPCS: 93225

== ENCOUNTER → 2024-06-02 07:19 | Outpatient (BNV) | payer OTHER, SELFPAY | PROVIDERS: PCP Internal Medicine; Visit Provider Internal Medicine | DX: R00.0 Tachycardia, unspecified (principal) | CPT/HCPCS: 93227 ==

== ENCOUNTER 2024-06-17 09:54 | Outpatient (REF) | payer OTHER, SELFPAY ==
--- NOTE | ~2024-06-17 | FL_ITS ---
EXAMINATION: XR FLUOROSCOPY UPPER GI WITH AIR CLINICAL INFORMATION: Preop evaluation prior to bariatric surgery COMPARISON: None TECHNIQUE: Fluoroscopic air contrast upper GI examination was performed utilizing standard techniques with thin and thick barium and effervescent granules. Numerous spot images were obtained. FINDINGS: Dual and single contrast images of the esophagus demonstrate normal caliber, contour, and mucosal pattern. No evidence of stricture, mass, or ulcerations identified. Esophageal peristalsis is mildly disorganized. A very small type I hiatal hernia is present. A small amount of gastroesophageal reflux is seen in the distal esophagus. Dual contrast and single contrast images of the stomach demonstrated normal contour and mucosal pattern without evidence of mass, ulceration, or other abnormality. Contrast freely passed into the gastric antrum and duodenal bulb without delay. Single and air-contrast images of the duodenal bulb demonstrate no abnormality. The duodenal sweep has a normal appearance, course, and mucosal fold appearance. The imaged proximal jejunum has a normal fold pattern and caliber. FLUOROSCOPY TIME: 3 minutes 27 seconds Number of Spot Images: 10 Number of Cine: 13 DOSE AREA PRODUCT: 2633 uGy-m2 (microgray-meter squared) FL/FL upper GI w air IMPRESSION: 1. Very small type I hiatal hernia with mild gastroesophageal reflux 2. Mildly disorganized esophageal peristalsis This procedure was performed by Nixon Beckman PA-C, and supervised by Dr. Garland
== END 2024-06-17 09:55 | disposition home or self-care (01) ==
LOC: HO.XRAY 09:54
PROVIDERS: Visit Provider Surgery
DX: E66.01 Morbid (severe) obesity due to excess calories (principal); I10 Essential (primary) hypertension; K21.9 Gastro-esophageal reflux disease without esophagitis
CPT/HCPCS: 74246

== ENCOUNTER → 2024-06-17 09:55 | Outpatient (BNV) | payer OTHER, SELFPAY | PROVIDERS: Visit Provider Physician Assistant Surgical | DX: K21.9 Gastro-esophageal reflux disease without esophagitis (principal); E66.9 Obesity, unspecified; Z01.818 Encounter for other preprocedural examination | CPT/HCPCS: 74246 ==

== ENCOUNTER 2024-09-13 08:01 | Outpatient (AMB) | payer OTHER, SELFPAY ==
--- NOTE | 2024-09-13 12:19 | MHC.OFFVISWM ---
VS Expanded 09/13/24 12:29 Height 5 ft 1 in Weight 263 lb BMI 49.7 Intake Visit Reasons: TV Pre Op LSG 09/21/24 Allergies semaglutide [From Wegovy] Adverse Reaction (Intermediate, Verified 09/13/24 12:19) abd. pain, N/V, constipation Medication List - Last Reconciled 09/13/24 by Mikael Levine MD [id number] 50-300-40 mg (Fioricet) 1 cap PO Q6H PRN 5 days cholecalciferol (vitamin D3) 50 mcg PO DAILY 90 days cholecalciferol (vitamin D3) 125 mcg PO DAILY lisinopril 5 mg PO DAILY 90 days mecobalamin (vitamin B12) 1,000 mcg sublingual DAILY naproxen 500 mg PO BID PRN 7 days ondansetron 4 mg PO Q12H pantoprazole 40 mg PO DAILY polyethylene glycol 3350 17 grams PO DAILY selenium sulfide 2.25% 5 mL topical 2XW 30 days sucralfate 10 mL PO BID sumatriptan succinate 25 mg PO Q2-4H PRN 30 days topiramate 50 mg PO BEDTIME 30 days HPI HPI TV Pre Op LSG 09/21/24: Details: Start time: 12.15pm, End time: 12.35pm ?I spent 15 minutes speaking with the patient on the phone plus an additional 5 minutes reviewing and updating records for a total of 20 minutes HPI Comments Details: Overall weight loss: 21.2lbs, or 7.5% TBWL Is doing 2 Celebrate Rebuild protein shakes, and one meal Exercise: doing treadmill PFSH Medical History (Updated 09/13/24 @ 09:09 by Marisela Velasquez RN) Abnormal EKG Migraines HTN (hypertension) Back pain Morbid obesity Surgical History (Updated 09/13/24 @ 09:09 by Marisela Velasquez RN) History of esophagogastroduodenoscopy (EGD) Family History Mother No problems noted. Father Diabetes Social History (Updated 05/24/24 @ 17:12 by Brunilda Harper MD) Housing: House Alcohol intake: never Patient Tobacco Use Status: Never used Tobacco e-Cigarette/Vaping Use: Never Used Second Hand Smoke Exposure: No service: No Current occupational status: employed Current occupational exposures/hazards: No Cognitive needs: No Hearing needs: No Vision needs: Yes Telehealth Telehealth Telehealth Platform: Telephone Location of provider rendering services: practice address Location of patient: address on file Patient Identification confirmed using: Name, : Yes Telehealth method: voice only Patient verbally consented to treatment: Yes Patient verbally consented to billing insurance company: Yes Patient informed of any privacy concerns related to visit: Yes Minutes spent on Phone/Video with Pt.: 20 Assessment & Plan Assessment & Plan (1) Morbid obesity: Code(s): E66.01 - Morbid (severe) obesity due to excess calories Category: Medical Plan: 1. Plan for lap sleeve gastrectomy including upper GI endoscopy. All tests has been completed and reviewed and the patient is cleared for the surgery. ?If diaphragmatic or ventral hernias are present at time of surgery, these will be repaired laparoscopically as well. Risks and complications were discussed in detail including possible conversion to an open procedure, anastomotic leak, bleeding requiring transfusion, small bowel obstruction, , DVT and pulmonary embolism, cardiac, or pulmonary complications, as technician terminal and repeater complications such as anastomotic ulcer, insufficient weight loss and vitamin deficiencies. I emphasized the importance of close follow-up, adherence to instructions and good communication. So far she has proven to be an excellent communicator and very compliant with all our directions accomplishing a great weight loss. I believe that she is an excellent candidate and she is ready. 2. Preop prescriptions were provided and explained the purpose of each one. Need to be purchased preop. Start Pantoprazole now as you get it from the pharmacy, 1 pill per day. Sucralfate and Zofran are for after surgery as needed. 3. Bowel prep: please do 7 packets ?of Miralax mixing each one with a an 8oz glass of water, crystal light, gatorade zero, or propel ?on 09/19/24 and the same amount on 09/21/24. The Miralax you begin with one packet at a time in 8oz water or crystal light, gatorade zero, or propel ?as early in the day as you can and you do them back to back until you finish them. Continue the protein shakes during ?the bowel prep. 4. Needs to purchase 1oz medicine cups . 5. Needs to purchase Children's liquid Tylenol for postop pain control. 6. She needs to stop the Naproxen. Avoid aspirin, motrin, Advil, Aleve, Ibuprofen, Naproxyn. Tylenol is OK. 7. She needs to purchase the Celebrate 4:1 protein shakes or the Celebrate multivitamins from the hospital's gift shop. 8. Will do basic preop blood work-up any day between Friday10/21/22 and Friday10/25/22 fasting for 12 hours and is scheduled to see the Anesthesiologist prior to the day of surgery. 9. Importance of adherence to postop folllow-up and recommendations was underscored and she understands that. 10. Stop food and bars as of today 09/13/24 and continue with 5 Celebrate REBUILD protein shakes (TWO scoops EACH in 12oz almond milk) at 9am-11am, 12pm-2pm, 3pm-5pm, 6pm-8pm and at 9pm-11pm 11. No soups, broths or V8 12. The patient's?medical?history has been reviewed and they are considered low risk for post op DVT and therefore DVT prophylaxis is not considered necessary. Travel after surgery was reviewed. The patient has not disclosed any travel plans during the first 30 days after surgery and they have been advised that within the first 30 days after surgery any bus, plane, train or car travel over 2 hours in duration is contraindicated due to the possibility of developing blood clots from immobility. Any travel, needs to include periods of ambulation of 10 minutes in duration every 2 hours.? Patient was instructed to discuss any plans for travel during this period with their bariatric surgeon.? 13. As of tomorrow, please check your blood pressure daily in the morning. If your blood pressure is: Below 120/70: do not take the Lisinopril 121/71 to 135/85: take HALF Lisinopril Over 136/86: take the whole Lisinopril 14. Please take at the day of surgery the following medications: Lisinopril if the blood pressure that day is high enough to justify it based on the parameters at the previous bullet point. 15. Stop any control pills and don't use them for one month after surgery 16. Absolutely no smoking or vaping, or marijuana until the surgery and for at least the first 4 weeks. Only nicotine patches are allowed. 17. Send me weight measurements on and then on the day of surgery before you go to the hospital. 18. Avoid any steroids by mouth for any reason. Let me know if someone prescribes them to you 19. These instructions supersede anything else you read in the handbook, anything you watched in videos or classes or you were told by any other provider. If there is any conflict, you follow the above instructions and nothing else. Orders: Orders TSH reflex Free T4 Today E66.01 - Morbid (severe) obesity due to excess calories Type and Screen Today E66.01 - Morbid (severe) obesity due to excess calories Lipid Panel Today E66.01 - Morbid (severe) obesity due to excess calories C Reactive Protein Today E66.01 - Morbid (severe) obesity due to excess calories Partial Thromboplastin Time Today E66.01 - Morbid (severe) obesity due to excess calories Insulin Today E66.01 - Morbid (severe) obesity due to excess calories Comprehensive Met. Panel Today E66.01 - Morbid (severe) obesity due to excess calories Prothrombin Time INR Today E66.01 - Morbid (severe) obesity due to excess calories Hemoglobin A1c Today E66.01 - Morbid (severe) obesity due to excess calories Complete Blood Count Auto Diff Today E66.01 - Morbid (severe) obesity due to excess calories Medications: New sucralfate 10 mL PO BID 600 mL 2RF K21.9 - Gastro-esophageal reflux disease without esophagitis ondansetron Only take one every 12 hours as needed if you have nausea 4 mg PO Q12H 20 tabs 0RF nausea and vomiting R11.0 - Nausea pantoprazole 40 mg PO DAILY 90 tabs 0RF K21.9 - Gastro-esophageal reflux disease without esophagitis polyethylene glycol 3350 Mix each measuring cup with 8oz of water, Crystal light, or Gatorade zero, or Propel and do 7 measuring cups on 09/19/24 and another 7 measuring cups on 09/20/24 17 grams PO DAILY 238 grams 0RF Z01.818 - Encounter for other preprocedural examination
[2024-09-13 12:29] VITALS: BMI 49.7
== END 2024-09-13 12:36 | disposition home or self-care (01) ==
LOC: HO.HBS 08:01
PROVIDERS: PCP Internal Medicine; Visit Provider Surgery
DX: E66.01 Morbid (severe) obesity due to excess calories (principal)
CPT/HCPCS: 99213

== ENCOUNTER → 2024-09-13 08:01 | Outpatient (BNVA) | payer OTHER, SELFPAY | PROVIDERS: PCP Internal Medicine; Visit Provider Surgery ==

== ENCOUNTER 2024-09-13 15:23 | Outpatient (AMB) | payer OTHER, SELFPAY ==
--- NOTE | 2024-09-13 16:43 | MHC.PC.OV ---
Vital Signs 09/13/24 16:50 BP 132/90 H Pulse 97 Pulse Source Monitor Intake Visit Reasons: Cough and Sinus Infection Allergies semaglutide [From Juan] Adverse Reaction (Intermediate, Verified 09/13/24 16:44) abd. pain, N/V, constipation Medication List - Last Reconciled 09/13/24 by Meche Huerta, CRAFT COORDINATOR-BC [id number]-swnyqgyzbbljh-ldtn 50-300-40 mg (Fioricet) 1 cap PO Q6H PRN 5 days cholecalciferol (vitamin D3) 50 mcg PO DAILY 90 days cholecalciferol (vitamin D3) 125 mcg PO DAILY lisinopril 5 mg PO DAILY 90 days mecobalamin (vitamin B12) 1,000 mcg sublingual DAILY naproxen 500 mg PO BID PRN 7 days ondansetron 4 mg PO Q12H pantoprazole 40 mg PO DAILY polyethylene glycol 3350 17 grams PO DAILY selenium sulfide 2.25% 5 mL topical 2XW 30 days sucralfate 10 mL PO BID sumatriptan succinate 25 mg PO Q2-4H PRN 30 days topiramate 50 mg PO BEDTIME 30 days Tobacco use date assessed: 12/29/23 Dental Screening Dental Screen Date: 05/24/24 HPI HPI Comments History of Present Illness Details Telehealth visit for this 24 y/o with c/o URI States 3 weeks ago became ill with URI. Since this time, she cont w/ chest congestion and a cough that comes and goes. Has had some wheezing on and off. Denies asthma history. She has been using OTC meds w/o relief Denies fever, chills, sore throat, chest pain. [facility] in April s/p Carla Attempted to do video call, pt was not able to connect, therefore voice only was used. Patient was able to take her own blood pressure. See results. Patient reports that she has known hypertension. She monitors at home. She is on medications is taking them as directed. She is speaking in full sentences. Occasional cough noted during exam. No audible wheezing. The plan will be for her to get an x-ray of her chest and start albuterol. Advised that if she feels worse that she can come to the walk-in on Friday. Otherwise trial the inhaler and I will follow up with her once the x-ray results are back. This note is constructed using voice recognition software. While every effort has been made to ensure accuracy in trust manager, still errors may have been included Sometimes, these errors may affect the content or meaning of the given sentence . Total time spent caring for the patient today was 22 minutes. This includes time spent before the visit reviewing the chart, time spent during the visit, and time spent after the visit on documentation [facility] Medical History (Updated 09/13/24 @ 16:55 by Meche Huerta [facility]) Abnormal EKG Migraines HTN (hypertension) Back pain Morbid obesity Surgical History (Updated 09/13/24 @ 09:09 by Marisela Velasquez RN) History of esophagogastroduodenoscopy (EGD) Family History Mother No problems noted. Father Diabetes Social History (Updated 05/24/24 @ 17:12 by Brunilda Harper MD) Housing: House Alcohol intake: never Patient Tobacco Use Status: Never used Tobacco e-Cigarette/Vaping Use: Never Used Second Hand Smoke Exposure: No service: No Current occupational status: employed Current occupational exposures/hazards: No Cognitive needs: No Hearing needs: No Vision needs: Yes Questionnaire Thrive Questionnaire Date Thrive assessed: 12/29/23 EMMA-7 AMB Questionnaire EMMA-7 Date EMMA - 7 assessed: 12/29/23 Source: Developed by Drs. Curt Sorensen, Trena Garner, Shamir Mccray and colleagues, with an educational choco from [employer]. Physical exam (Primary Care) Tobacco/Smoking Status: Tobacco use Status Tobacco use date assessed 12/29/23 05/24/24 16:53 Patient Tobacco Use Status Never used Tobacco 05/24/24 17:12 e-Cigarette/Vaping Use Never Used 05/24/24 17:12 Thrive Assessment: Date of Thrive Assessment Date Thrive assessed 12/29/23 05/24/24 16:53 Telehealth Telehealth Telehealth Platform: [facility] Location of provider rendering services: practice address Location of patient: address on file Patient Identification confirmed using: Name, : Yes Telehealth method: voice only Patient verbally consented to treatment: Yes Patient verbally consented to billing insurance company: Yes Patient informed of any privacy concerns related to visit: Yes Minutes spent on Phone/Video with Pt.: 15 Coding Level of Care Code Tele Est Pt Level 3 (15212) Complex EM visit Add On G2211 Diagnoses Subacute cough R05.2 Cough type: subacute Assessment & Plan Assessment & Plan (1) Cough: Code(s): R05.9 - Cough, unspecified Category: Medical Qualifiers: Cough type: subacute Qualified Code(s): R05.2 - Subacute cough Plan: . Plan . Orders: Orders XR chest 2V Today R05.9 - Cough, unspecified Medications: New albuterol sulfate 90 mcg/actuation 2 puffs inhalation Q4-6H 30 days PRN 8.5 grams 0RF shortness of breath or wheezing
[2024-09-13 16:50] VITALS: BP 132/90; PULSE 97
== END 2024-09-13 16:56 | disposition home or self-care (01) ==
LOC: HO.HMCFM 15:23
PROVIDERS: PCP Nurse Practitioner Family; Visit Provider Nurse Practitioner Family
DX: R05.2 Subacute cough (principal)

== ENCOUNTER 2024-09-15 07:28 | Outpatient (REF) | payer OTHER, SELFPAY ==
[2024-09-15 08:48] LABS: MANUAL DIFF FLAG NO
[2024-09-15 09:05] LABS: Basophils Percent Auto 0.3 % (0-2); Eosinophils Absolute Auto 0.1 X10*3/uL (0.0-0.4); Eosinophils Percent Auto 1.5 % (0-4); Hemoglobin 13.2 g/dl (12.0-16.0); Imm Gran Abs Auto 0.06 X10*3/uL (0.00-0.03); Imm Gran Pct Auto 0.7 % (0.0-0.4); Lymphocytes Absolute Auto 1.5 X10*3/uL (1.2-4.9); Lymphocytes Percent Auto 16.4 % (20-40); Mean Corpuscular Hemoglobin 27.1 pg (27.0-33.0); Mean Corpuscular Volume 82.1 fL (80.0-98.0); Mean Platelet Volume 9.7 fL (9.4-12.3); Monocytes Absolute Auto 0.6 X10*3/uL (0.1-1.2); Monocytes Percent Auto 6.1 % (2-11); Neutrophils Absolute Auto 6.9 x10*3/uL (2.0-8.3); Platelet Count 356 X10*3/uL (160-400); Red Blood Count 4.87 X10*6/uL (4.20-5.50); Red Cell Distribution Width 12.7 % (11.0-16.0); White Blood Count 9.2 X10*3/uL (4.8-10.8)
== END 2024-09-15 07:29 | disposition home or self-care (01) ==
LOC: CF 07:28
PROVIDERS: Visit Provider Surgery
DX: Z01.89 Encounter for other specified special examinations (principal); E66.01 Morbid (severe) obesity due to excess calories
CPT/HCPCS: 36415; 80053; 80061; 83525; 84443; 85025; 86140

== ENCOUNTER 2024-09-21 06:01 | Inpatient (IN) | payer OTHER, SELFPAY ==
[2024-09-14 11:53] VITALS: BMI 49.5
[2024-09-15 10:00] LABS: Estimated Average Glucose 103 mg/dL; Hemoglobin A1C 113.4061 umol/L; Hemoglobin A1c % 5.2 % (<6.0); Total Hemoglobin (HGBA1C) 3356.7874 umol/L
[2024-09-15 13:10] LABS: Insulin 14 uU/mL (2-29)
[2024-09-16 10:58] LABS: Alanine Aminotransferase 28 U/L (0-31); Albumin Level 4.3 g/dL (3.5-5.0); Alkaline Phosphatase 76 U/L (39-117); Anion Gap 15 (12-20); Aspartate Amino Transferase 25 U/L (5-31); Bilirubin Total 0.4 mg/dL (0.0-1.0); Blood Urea Nitrogen 11 mg/dL (9-16); C Reactive Protein 3.72 mg/dL (< or = 0.50); Calcium 10.2 mg/dL (8.4-10.2); Carbon Dioxide 22 mmol/L (22-29); Chloride 106 mmol/L (96-108); Cholesterol 180 mg/dL (<200); Estimated Glomerular Filt Rate > 60; Glucose Random 77 mg/dL (60-115); HDL Cholesterol 34 mg/dL (>40); LDL Cholesterol Calculated 116 mg/dL (<100); Potassium 3.4 mmol/L (3.3-5.1); Sodium 140 mmol/L (135-145); Total Protein 7.7 g/dL (6.5-8.0); Triglycerides 153 mg/dL (<150)
[2024-09-16 11:03] LABS: TSH reflex Free T4 1.96 uIU/mL (0.32-4.0)
[2024-09-18 10:56] LABS: INTERNATIONAL NORM RATIO 1.2 (0.9-1.1); Prothrombin Time 13.4 SEC (10.9-12.4)
[2024-09-18 10:58] LABS: Partial Thromboplastin Time 38.8 SEC (26.0-36.8)
--- NOTE | 2024-09-20 09:46 | P.CONAN_ITS ---
Documented by User: Yamila Barney NP 09/20/24 09:48 HPI - Anesthesia Eval Consult details Narrative: 24yo F for Gastrectomy Sleeve- EGD, possible diaphragmatic hernia, possible ventral hernia, possible open PMFSH Active Problems Active Problems: All Active Problems Cough (Acute) Physical exam (Acute) Seborrheic dermatitis of scalp (Acute) Palpitations (Acute) COVID-19 (Acute) Abnormal EKG (Acute) Vitamin B12 deficiency (Acute) Vitamin D deficiency (Acute) Adjustment disorder, unspecified (Acute) Tachycardia (Acute) Essential hypertension (Acute) Migraines (Acute) Super-super obese (Acute) Hypovitaminosis D (Acute) Microscopic hematuria (Acute) Back pain (Acute) Morbid obesity (Acute) Past Medical History Medical History Palpitations Abnormal EKG Migraines HTN (hypertension) Back pain Morbid obesity Family History Family History Mother No problems noted. Father Diabetes Family history of problems with anesthesia: No Surgical History Surgical History History of esophagogastroduodenoscopy (EGD) History of Problems with Anesthesia: Unobtainable Social History Social History Housing: House Are you a primary manager respiratory care to a significant other at home: No Do you presently have visiting nurse or other home services: No Alcohol intake: never Patient Tobacco Use Status: Never used Tobacco e-Cigarette/Vaping Use: Never Used Second Hand Smoke Exposure: No Use of substances other than those prescribed or required for medical reasons: No Have you been hit, kicked, punched, or otherwise hurt by someone within the past year? If so, by whom?: No Spiritual Healthcare Practices: none Christian Healthcare Practices: none Cultural Healthcare Practices: none Are you DNR?: No Advance Directives: No (parents primary contact) Advance Directives Information Provided: Yes (as above noted) Advance Directives on File: No Recently lost weight without trying: No Eating poorly because of decreased appetite: No Patient : No (has Nexplanon implant) FDLMP: n/a-has Nexplanon : No Poor oral hygiene: No service: No Current occupational status: employed Current occupational exposures/hazards: No Cognitive needs: No Hearing needs: No Vision needs: Yes Meds Allergies Allergy/AdvReac Type Severity Reaction Status Date / Time semaglutide [From [facility]] AdvReac Intermediate abd. pain, Verified 09/21/24 06:18 N/V, constipation Home Medications ?Medication ?Instructions ?Recorded ?Confirmed ?Last Taken ?Type Nexplanon 09/21/24 10/17/23 History Exam Height,Weight and Vital Signs: Height 5 ft 1 in Weight 118.841 kg Pertinent Lab Results Pertinent Lab Results: Laboratory Tests 09/15/24 09/18/24 09/18/24 08:45 09:57 10:05 PT 13.4 H INR 1.2 H APTT 38.8 H Sodium 140 Potassium 3.4 Chloride 106 Carbon Dioxide 22 Anion Gap 15 BUN 11 Creatinine 0.81 Estim Creat Clear Calc 130.0 Estimated GFR > 60 Random Glucose 77 Estimat Average Glucose 103 Hemoglobin A1c % 5.2 Insulin Level 14 Calcium 10.2 Total Bilirubin 0.4 AST 25 ALT 28 Alkaline Phosphatase 76 C-Reactive Protein 3.72 H Total Protein 7.7 Albumin 4.3 Triglycerides 153 H Cholesterol 180 LDL Cholesterol, Calc 116 H HDL Cholesterol 34 L TSH 1.96 Blood Type A Positive Antibody Screen NEGATIVE Narrative Narrative: EKG 2023 Vent. Rate : 109 BPM Atrial Rate : 109 BPM P-R Int : 120 ms QRS Dur : 090 ms QT Int : 314 ms P-R-T Axes : 037 015 -64 degrees QTc Int : 422 ms Sinus tachycardia Minimal voltage criteria for LVH, may be normal variant ( R in aVL ) T wave abnormality, consider inferior ischemia T wave abnormality, consider anterolateral ischemia Abnormal ECG No previous ECGs available ECHO 2023 Conclusions: - Low normal LV ejection fraction 50-55% otherwise normal study Exercise Stress 2023 Protocol: KATIE Max HR: 179 BPM 90% of Pred: 198 BPM Max BP: 182/054 mmHG Max Work Load: 7.0 METS Exercise stress test with exercise 5 min 30 sec of Katie protocol, achieving 88% MPHR, with mild sob, no chest discomfort, without arrythmia, with normotensive response to exerrcise, with abnormal EKG at baseline: T wave inversions inferior and V3-V6 - no significant changes during exercise or reecovery. EKG findings nonspecific. Had Echocardiogram completed today. If further evaluation is needed, then recommend a stress echocardiogram. Test reviewed with Dr Zhu. Holter 2023 * Total monitoring time 2 days. * Underlying rhythm is sinus with an average rate of 98/Min. About 45% of the time, rate > 100/Min. * Rare ventricular ectopy. * No significant pauses or AV blocks. * Patient markers associated with sinus rhythm. Diary symptoms of sharp pain, chest tightness correlates with sinus rhythm and mild sinus tachycardia. Assessment and Plan Assessment Anesthesia Assessment: Chart Reviewed Final Anesthetic Review Family History of Problems with Anesthesia: No History of Problems with Anesthesia: Unobtainable Documented by User: April Crum MD 09/21/24 08:07 [facility] Past Medical History Medical History Palpitations Abnormal EKG Migraines HTN (hypertension) Back pain Morbid obesity Family History Family History Mother No problems noted. Father Diabetes Surgical History Surgical History History of esophagogastroduodenoscopy (EGD) History of Problems with Anesthesia: No Social History Social History Housing: House Are you a primary manager respiratory care to a significant other at home: No Do you presently have visiting nurse or other home services: No Alcohol intake: never Patient Tobacco Use Status: Never used Tobacco e-Cigarette/Vaping Use: Never Used Second Hand Smoke Exposure: No Use of substances other than those prescribed or required for medical reasons: No Have you been hit, kicked, punched, or otherwise hurt by someone within the past year? If so, by whom?: No Spiritual Healthcare Practices: none Christian Healthcare Practices: none Cultural Healthcare Practices: none Are you DNR?: No Advance Directives: No (parents primary contact) Advance Directives Information Provided: Yes (as above noted) Advance Directives on File: No Recently lost weight without trying: No Eating poorly because of decreased appetite: No Patient : No (has Nexplanon implant) FDLMP: n/a-has Nexplanon : No Poor oral hygiene: No service: No Current occupational status: employed Current occupational exposures/hazards: No Cognitive needs: No Hearing needs: No Vision needs: Yes Meds Allergies Allergy/AdvReac Type Severity Reaction Status Date / Time semaglutide [From [facility]] AdvReac Intermediate abd. pain, Verified 09/21/24 06:18 N/V, constipation Home Medications ?Medication ?Instructions ?Recorded ?Confirmed ?Last Taken ?Type Nexplanon 09/21/24 10/17/23 History Exam Airway Mallampati Class: II TM Dist: >3cm Neck ROM: Full Loose/Missing/Broken Teeth: No Heart: RRR Lungs: CTA Assessment and Plan Assessment Anesthesia Assessment: Anesthesia Plan Discussed Final Anesthetic Review History of Problems with Anesthesia: No NPO: Yes ASA Class: III Final Preanesthetic Review: Meds/Allgs Chart Reviewed, Consent Obtained/Reviewed and Anes Risks/Benef Reviewed Patient Risk: Intermediate Procedure Risk: Intermediate Anesthetic Plan Anesthetic Plan: GA Disposition: Standard PACU
[2024-09-21] VITALS (10 sets, daily range): BP systolic 134–160; BP diastolic 76–96; PULSE 84–125; RESP 16–21; TEMP 36.2–36.8; O2SAT 95–100; BMI 48.2; BMI 50.4
[2024-09-21 06:18] LABS: UPreg QC Valid YES; Urine Pregnancy NEGATIVE (NEGATIVE)
[2024-09-21] MEDS: Lactated Ringers 1,000 ML 999 ML IV (06:39)
[2024-09-21] MEDS: Lactated Ringers 1,000 ML 100 ML IVCONT ×3 (06:39→20:22)
[2024-09-21] MEDS: Aprepitant 32 MG/4.4 ML VIAL IVPUSH (06:44)
--- NOTE | 2024-09-21 07:32 | MHC.SHP ---
Pre-Procedural Eval Section A - 24 Hr Update-Section A only Date of Service: 09/21/24 The patient is an INPATIENT: Yes The patient has been examined within 24 hours of the surgical procedure. The History & Physical has been completed within 30 days and I have reviewed it.: Yes Section B - Complete if H&P > 30 days Chief Complaint: Morbid obesity Relevant Family History (Specify if Yes): No Relevant Social History: None Present Medications: None Medical History: No relevant PMH History of Previous Operations: No relevant previous surgery Allergies: Allergies Allergy/AdvReac Type Severity Reaction Status Date / Time semaglutide [From Wegovy] AdvReac Intermediate abd. pain, Verified 09/21/24 06:18 N/V, constipation Review of Systems Sugical H&P ROS: Negative: Constitution, Cardiovascular, Respiratory, Neurological, Psychiatric, Hem-Onc, Allergic/Immunologic, Gastrointestinal, Genitourinary, Musculoskeletal, Integumentary, Endocrine and Eyes/Ears/Nose/Throat Exam Surgical H&P Exam: Normal: HEENT, Normal: Heart, Normal: Lungs, Normal: Extremities, Normal: Abdomen, Normal: Skin and Normal: Neurological Plan Diagnosis/Plan: Unchanged I have reviewed the history and physical and performed a pertinent physical examination on my patient. No changes have occurred unless specified. Time Spent With Patient Time: Total time managing care of this patient today ____ minutes.
[2024-09-21] MEDS: ceFAZolin Sodium/Dextrose,Iso 2 GM/50 ML PIGGYBACK IV ×2 (07:50→13:23)
[2024-09-21] MEDS: Acetaminophen 1,000 MG/100 ML PIGGYBACK 400 MG IV (09:35)
--- NOTE | 2024-09-21 10:04 | PM.OP ---
Brief Operative Note Date of Service: 09/21/24 Pre-op diagnosis: Morbid obesity with comorbidities (see below) Post-op diagnosis: same Procedure: INITIAL PATIENT BMI ON PRESENTATION AT OUR OFFICE: 53.7 kg/m2 LAST BMI BEFORE SURGERY: 48.9 kg/m2 COMORBIDITIES: hypertension, migraines, GERD, back pain, liver steatosis, liver fibrosis ?The patient presented to the Weight Management Program with significant obesity that was negatively impacting the patient's comorbidities as listed above.? The program is a phased program with a special focus on preoperative medical weight management to promote substantial weight loss and prepare the patients for the second phase of the program: bariatric surgery. The patient participated in an intensive weekly lifestyle ?intervention and exercise program during which the patient ?has lost between the initial office visit and the last preoperative visit 25.4lbs, or 9% of initial actual body weight. It was deemed appropriate for the patient to now have bariatric surgery. In light of the current Covid-19 pandemic and the well documented strong association of obesity and increased risk of worse outcomes if infected with Covid-19 (REFERENCES:https://pubmed.ncbi.nlm.nih.gov/85270003/,?https://pubmed.ncbi.nlm.nih.gov/62467407/), any delay in undergoing bariatric surgery may lead to the patient's worsening health condition and increased?risk of more severe Covid-19 disease if infected. In addition a recent?study from [facility] published in [facility] on 11/12/2021 ([email or web address]) found that, among patients with obesity, substantial weight loss achieved with surgery was associated with improved outcomes of COVID-19 infection. The findings suggest that obesity can be a modifiable risk factor for the severity of COVID-19 infection. In addition, the patient met the BMI-criteria for bariatric surgery based on the BMI on initial presentation. The patient should not be penalized for achieving such weight loss because ?it is not sustainable long-term without surgical intervention and it was achieved in preparation for bariatric surgery ?under my direction and based on my published research ([email or web address]).[email or web address] and?[email or web address].soard.org/article/[email or web address]-X/pdf) ?that a 10% preoperative weight loss improves long-term weight loss after surgery and reduces perioperative complications.? Insurance carriers such as [facility] have endorsed my recommendations ?and have included in their policies criteria to include a 10% preoperative weight loss requirement. PROCEDURE: Esophago-gastroscopy, laparoscopic lysis of adhesions, laparoscopic sleeve gastrectomy and laparoscopic gastropexy INDICATIONS: This is a 24 year-old female who was electively scheduled for laparoscopic, possibly open sleeve gastrectomy. The risks and complications of the procedure were discussed with the patient in advance, particularly the possibility of ; pulmonary embolism; staple line leak; bleeding; GERD; cardiac, pulmonary, or renal complications; as well as long-term problems such as insufficient weight loss, vitamin deficiency, strictures, or ulcers. The patient understood all the risks, and was in agreement to proceed with surgery. DESCRIPTION OF PROCEDURE: After informed consent was obtained from the patient, the patient was given preoperative antibiotics, and was transferred to the operating room. After successful induction of general anesthesia, pneumatic compression devices were placed on both lower extremities. An upper endoscopy was performed next. The oropharynx and esophagus appeared to be within normal limits. There was no significant diaphragmatic hernia present. The stomach was entered. Then after all fluid and air were suctioned and the stomach was fully decompressed, the scope was withdrawn and secured in the mid esophagus. The patient was then prepped and draped in the usual sterile manner, and abdominal access was established at the right upper quadrant with the Aleena technique. A 12 mm blunt port was inserted, and the abdomen was insufflated with CO2 to a pressure of 15 mmHg. Under direct visualization, additional ports were placed, specifically two 5 mm Versi-step ports to the left upper quadrant, and a 5 mm Versi-Step port to the right upper quadrant. 1% lidocaine plain was used to infiltrate all port sites as well as all fascia defects. Following that, the patient was placed in a steep reverse Trendelenburg position. An additional 5 mm port was placed to the right flank for the Mediflex retractor that was used to retract the left lobe of the liver. The gastro-esophageal fat pad was opened with the ultrasonic device (Thunderbeat, Olympus) and the anterior esophagus and hiatus were exposed. The angle of His was opened with the ultrasonic device the fundus of the stomach from any diaphragmatic and splenic attachments. I then opened the gastrocolic ligament between the transverse colon and the greater curvature of the stomach with the ultrasonic device to enter the lesser sac and facilitate the ligation of the short gastric vessels. I started at a mid-point along the greater curvature and using the Thunderbeat, all short gastric vessels were divided all the way to the angle of His until the left amy was completely dissected at its entirety. I then divided the gastro-colic ligament distally to a distance of about 3-4 cm proximal to the pylorus. There were extensive congenital adhesions between the pancreas and posterior gastric wall. Those were lysed completely with the ultrasonic device. Adhesiolysis took approximately 45 min to complete. The stomach was then divided transversely with three Endo RHONA-45 purple and two RHONA-60 articulating purple loads using the PlayerDuel[employer] stapler and loads. Every effort was made that the gastric sleeve had a tubular shape and an even caliber throughout. Once the sleeve resection was completed, the staple line of the gastric sleeve was reinforced with Hemoclips. The resected stomach was retrieved without difficulty from the Aleena port. A gastropexy was then performed in order to prevent postoperative GERD and partial gastric volvulus. Several interrupted 2.0 Surgidac sutures were placed between the sleeve's staple line and the previously divided greater omentum and gastro-colic ligament using the Endo-Stitch device. ?An upper endoscopy was performed. There was no narrowing at the GE junction. The scope was easily advanced all the way to the pylorus which was clearly visualized. There was no narrowing anywhere and the sleeve's caliber was even throughout. The sleeve's staple line was inspected and there was no evidence of ischemia, bleeding or dehiscence. At that point the gastroscope was withdrawn from the patient?s mouth while we were decompressing the bowel and the stomach from any remaining air. I looked into the lesser sac to see how the sleeve was situating and it was situating well. There was no bleeding from the staple line, spleen, or short gastric vessels. The Mediflex retractor was removed, and the undersurface of the liver was inspected and there was no bleeding. The patient was placed in supine position. I closed the fascial defect of the 12 mm port site with a figure of eight #1 Polysorb suture. Then 30cc Ropivacaine plain with 10 mg of Dexamethasone were used to infiltrate the fascial closure as well as all skin incisions. At this point, the abdomen was deflated, all ports were removed under direct vision, and no bleeding was noted from any of the port sites. The skin incisions were irrigated with saline and were closed with 4-0 absorbable monofilament sutures. Steri-Strips and OpSites were used to cover all incisions. The patient was extubated and was transferred in stable condition to the recovery room for further care. I was present and performed all mckinley parts of the procedure. Ms. Jorgensen was the first press operator. There were no residents to assist with this case. Ricardo Levine MD, PhD, FACS Surgeon: Mikael Levine MD Anesthesia: GETA, local and other (TAP block) Was an [employer] used for this Procedure?: Yes [employer]: Susana Jorgensen Estimated blood loss (mL): 10 IV fluids (mL): 2,500 Urine output (mL): 0 (No Wells to record output) Pathology: other (Stomach) Condition: stable Disposition: PACU
--- NOTE | 2024-09-21 10:06 | P.DS_ITS ---
DS: Providers Provider Date of Service: 09/22/24 Date of admission: 09/21/24 06:01 Primary care physician: Unknown Physician DS: Summary Hospital Course Hospital Course: ADMITTING DIAGNOSIS: morbid obesity,?asthma, HTN, adjustment disorder, back pain, vitamin deficiencies, migraines ? DISCHARGE DIAGNOSIS: same, s/p laparoscopic sleeve gastrectomy and gastropexy ? PAST SURGICAL HISTORY:?EGD ? PROCEDURE: upper endoscopy, laparoscopic sleeve gastrectomy and gastropexy ? DISCHARGE SUMMARY: ? History of Present Illness: ? The patient is a? 24? year-old woman with a BMI of? ?48.2 ? kg/m2 and associated co-morbidities as described above. The patient had extensive work-up, lost? ?29.2 ? lbs preoperatively and was electively scheduled for laparoscopic, possible open sleeve gastrectomy and gastropexy. Risks and complications of the surgery were discussed with the patient in advance, particularly the possibility of , pulmonary embolism, anastomotic leak, bleeding, bowel injury, GERD, cardiac, renal or pulmonary complications. The patient understood all the risks and was in agreement with the surgical plan. ? Hospital Course: ? The patient underwent an uneventful laparoscopic sleeve gastrectomy with gastropexy on the day of admission. Postoperatively, the patient was transferred to the surgical floor. The patient received IV Acetaminophen and IV dilaudid for pain control. Patient was started on bariatric phase 1 diet POD #0. On postoperative day one, the patient was feeling well without nausea, vomiting, fevers, or tachycardia. The patient had some mild incisional pain and the abdomen was soft.? ? On the morning of postoperative day one, the patient was continued on 1 ounce of water or ice every half hour. During the day, the patient did fairly well, having some incisional pain, but able to ambulate adequately and to tolerate liquids well. ? Since the patient is doing well, we decided that the patient was ready to be discharged. The patient was given instructions to follow-up with me next week and to call my office for any fever over 101, persistent abdominal pain, nausea, vomiting, GERD, symptoms of DVT such as calf tenderness, or leg swelling, or pulmonary embolism such as chest pain or shortness of breath.? The patient was also instructed to drink 40-60 ounces of liquids per day using the 1-ounce cups. The patient had been given prescriptions for Tylenol for pain, Zofran prn for nausea, and pantoprazole and carafate previously. The patient was encouraged to ambulate and use the incentive spirometer. The patient was allowed to shower, but no baths, and encouraged to stay active at home. All of these instructions were given to the patient personally. All questions were answered and the patient understood all instructions, the instructions were also given to the patient in print. Time Attestation Discharge Coordination Time (in mins): 30 Quality: Safe Use of Opioids Does Pt have an Active Cancer Diagnosis on the Problem List?: No Quality: Stroke Does the patient have a stroke diagnosis?: No Physical Exam Vital Signs: Vital Signs: Last Vital Signs Temp 98.3 F 09/21/24 09:45 Pulse 123 H 09/21/24 09:55 Resp 18 09/21/24 09:55 BP 151/84 H 09/21/24 09:55 Pulse Ox 98 09/21/24 09:55 O2 Del Method Nasal Cannula 09/21/24 09:55 O2 Flow Rate 6 09/21/24 09:50 BMI result Body Mass Index 48.2 DS: Data Data Completed and Pending Pending studies at discharge: Pending at discharge 09/21/24 09:09 Surgical [PTH] Routine Labs on day of discharge: Laboratory Results - last 24 hr 09/21/24 06:10 Urine Test NEGATIVE Discharge Plan Discharge Anticipated Discharge Date/Time: 09/22/24 10:00 Patient Disposition: Home, Self-Care Discharge Diagnosis: s/p laparoscopic sleeve gastrectomy with gastropexy Referrals: Physician,Unknown J [Primary Care Provider] - 1 Week Discharge Medications: Continued pantoprazole 40 mg tablet,delayed release (DR/EC) 40 mg PO DAILY@0630 topiramate 50 mg tablet 50 mg PO BEDTIME 30 Days Qty: 30 3RF Held lisinopril 5 mg tablet 5 mg PO DAILY 90 Days Qty: 90 1RF Hold Instructions: Resume on 09/23/24. Check your blood pressure every morning as soon as you wake up and send it to Dr. Levine. Do no take the blood pressure medication if the blood pressure is below 120/70. Wait every day to hear back from Dr. Levine before you take the medication. Discontinued cholecalciferol (vitamin D3) 125 mcg (5,000 unit) capsule 125 mcg PO DAILY Qty: 90 0RF mecobalamin (vitamin B12) 1,000 mcg tablet,disintegrating 1,000 mcg sublingual DAILY Qty: 90 0RF Rx Instructions: place tablet under tongue and allow to dissolve for at least30 secs before swallowing No Action potassium chloride 20 mEq/15 mL liquid 10 meq PO DAILY 10 Days Qty: 75 0RF sucralfate 100 mg/mL suspension PO Discharge Orders: Discharge Order (Routine); Ordered 09/22/24 Ordered By: Mikael Levine Activity on Discharge: No heavy lifting Stand Alone Forms: Patient Portal Discharge page Print Language: Citizen Of [place] Care Plan Goals: weight loss Health Concerns: morbid obesity Plan of Treatment: No tub baths, sex or returning to work until discussed at first post op appointment. No alcohol, tobacco or illegal drug use. Continue to use incentive spirometer hourly while awake. Walk in home for 5- 10 minutes every 2 hours during the first week. Wear abdominal binder with activity. Follow all meal plan instructions from your bariatric surgeon. Review bariatric handbook and call with any questions. Discharge Instructions 1. Please call your doctor or come back to the emergency room should any new symptoms arise. 2. Activity: abstain from alcohol,? limited stair climbing, no bending, no driving, no exercise, no illicit substances, no lifting, no sex, no tub bath, no work. 4. Diet: follow your bariatric surgeons recommendations for advancing diet. 5. Dressing Change/Wound Care: Your incisions are covered with waterproof dressings. You can shower with these and pat dry. Do not rub over dressings or incisions. If the area is tender, you may apply an ice pack for short intervals (no more than 20 minutes on, followed by at least 20 minutes off). Do not apply heat. Do not use creams, lotions, or topical antibiotics unless instructed to do so by your surgeon. 6. Call your doctor if: - Your temperature exceeds 101.5 F - You experience excessive pain or swelling - You have an unexpected reaction to medication - You have excessive bleeding - You experience continued vomiting/nausea - Your incision begins to separate - Your incision shows signs of infection such as increased redness, swelling, excessive pain, heat, or drainage (light blood or clear fluid is normal) General instructions: No lifting greater than 10 lbs for the next 6 weeks[address] driving within 24 hours of taking narcotic pain medications. If you do not move your bowels in the next 2 days, please take milk of magnesia over the counter. Please follow the post op diet and do not advance your diet until you are seen in the office in about 2 weeks. Please walk around your home every hour or two to prevent blood clots from forming in your legs. You do not need to wake from sleeping to walk. Please sleep in a bed or couch to prevent kinking at the hips and knees. Please take your incentive spirometer (your lung cnc machinist 2nd shift) home with you and use it for the next few days to prevent pneumonias. You may shower, no hot tubs, baths or swimming pools. Please call the office with any questions or concerns such as increasing abdominal pain, fever, chills, shortness of breath, chest pain, leg pain or swelling, or redness or drainage from your incisions. Please make sure you are consuming 40-60 ounces of total fluids per day. Avoid all carbonation. Do not hesitate to contact the office with any questions at . The patient's medical history has been reviewed and they are considered low risk for post op DVT and therefore DVT prophylaxis is not considered necessary. Travel after surgery was reviewed. The patient has not disclosed any travel plans during the first 30 days after surgery and they have been advised that within the first 30 days after surgery any bus, plane, train or car travel over 2 hours in duration is contraindicated due to the possibility of developing blood clots from immobility. Any travel, needs to include periods of ambulation of 10 minutes in duration every 2 hours.? The patient was instructed to discuss any plans for travel during this period with their bariatric surgeon. Assessment: s/p laparoscopic sleeve gastrectomy with gastropexy Discharge Date/Time: 09/22/24 09:09
[2024-09-21 10:56] LABS: Hemoglobin 12.7 g/dl (12.0-16.0)
[2024-09-21] MEDS: HYDROmorphone HCl 0.5 MG/0.5 ML SYRINGE 0.25 MG IVPUSH (11:07)
[2024-09-21 11:11] LABS: Anion Gap 17 (12-20); Blood Urea Nitrogen 8 mg/dL (9-16); Calcium 9.5 mg/dL (8.4-10.2); Carbon Dioxide 20 mmol/L (22-29); Chloride 103 mmol/L (96-108); Creatinine Clr Calc Pharmacy 131.5; Estimated Glomerular Filt Rate > 60; Glucose Random 139 mg/dL (60-115); Potassium 3.9 mmol/L (3.3-5.1); Sodium 136 mmol/L (135-145)
--- NOTE | 2024-09-21 11:16 | PM.PNGS ---
Subjective Subjective Date of Service: 09/22/24 Interval history: Feels well. Mild incisional pain. She is tolerating phase 1 bariatric diet Physical Exam Vital Signs: Vital Signs: Last Vital Signs Temp 97.1 F 09/21/24 10:42 Pulse 102 H 09/21/24 10:42 Resp 17 09/21/24 10:42 BP 135/82 09/21/24 10:42 Pulse Ox 97 09/21/24 10:42 O2 Del Method Room Air 09/21/24 10:42 O2 Flow Rate 2 09/21/24 10:15 BMI result Body Mass Index 50.4 GI: Inspection: Yes normal to inspection, Yes incision (clean, dry and intact) and Yes obesity Palpation (GI): Soft to palpation Extrem: Right lower extremity: normal to inspection (no calf tenderness) Left lower extremity: normal to inspection (no calf tenderness) Objective Data Active Medications Albuterol Sulfate (Albuterol Sulfate 90 Mcg 8 Gm Inhaler) 2 puff INHALE Q4H PRN PRN Reason: shortness of breath or wheezing Famotidine (Famotidine/Pf 20 Mg/2 Ml Vial) 20 mg IVPUSH BID NESTOR Hydromorphone HCl (Hydromorphone Hcl 0.5 Mg/0.5 Ml Syringe) 0.25 mg IVPUSH Q4H PRN; Protocol PRN Reason: Pain, Severe (Pain Scale 7-10) Last Admin: 09/21/24 11:07 Dose: 0.25 mg Documented By: NIKITA Lactated Ringer's (Lr) 1,000 mls @ 100 mls/hr IVCONT .Q10H [facility] Last Admin: 09/21/24 10:58 Dose: 100 mls/hr Documented By: NIKITA Cefazolin Sodium/Dextrose (Ancef) 2 gm in 50 mls @ 100 mls/hr IV POSTOP ONE Stop: 09/21/24 14:29 Acetaminophen (Ofirmev) 1,000 mg in 100 mls @ 16.7 mls/hr IV .Q6H [facility] Metoclopramide HCl (Metoclopramide Hcl 10 Mg/2 Ml Vial) 10 mg IVPUSH Q6H PRN PRN Reason: Nausea Ondansetron HCl (Ondansetron Hcl 4 Mg/2 Ml Vial) 4 mg IVPUSH Q8H PRN PRN Reason: Nausea Sodium Chloride (0.9 % Sodium Chloride Flush 3 Ml Syringe) 3 ml IVFLUSH QSHIFT NESTOR Topiramate (Topiramate 25 Mg Tablet) 50 mg PO BEDTIME NESTOR Labs 09/22/24 05:30 09/22/24 05:30 Labs: Laboratory Results - last 24 hr 09/21/24 09/21/24 06:10 10:48 Anion Gap 17 Estim Creat Clear Calc 131.5 Estimated GFR > 60 Random Glucose 139 H Calcium 9.5 D Urine Test NEGATIVE Procedures Date of Service Date of Service: 09/22/24 Progress Note: A&P Assessment and plan (1) Morbid obesity: Status: Acute (2) Essential hypertension: Status: Acute (3) Migraines: Status: Acute (4) Acid reflux: Status: Inactive (5) Steatosis, liver: Status: Acute (6) Liver fibrosis: Status: Acute (7) S/P laparoscopic sleeve gastrectomy: Status: Acute Assessment and Plan: s/p laparoscopic sleeve gastrectomy, lysis of adhesions and gastropexy Doing well Will check am labs and if OK the patient will be discharged home Time Spent With Patient Time: Total time managing care of this patient today ____ minutes. Quality Stroke Does the patient have a stroke diagnosis?: No VTE Prior VTE?: No VTE Risk Level:: Surgical - moderate VTE Device Contraindication: N/A - Device Ordered VTE Drug Contraindication: Treatment Not Indicated
--- NOTE | 2024-09-21 12:37 | PHA.MEDREC ---
Addendum entered by Tiffanie Rome RPh 09/21/24 12:52: reviewed by [facility]. Original Note: Pharmacy Consult ? Medication Reconciliation Pharmacy reviewed med rec done by nursing. Spoke to patient and she confirmed the medications on the med rec. She stated she is not taking the Albuterol Inhaler anymore due to not needing it right now. She confirmed she has the Ondansentron and Sucrtalfate suspension at home for after surgery. She confirmed she last took her medications yesterday. I updated the med rec according to what patient stated to me.
[2024-09-21] MEDS: Acetaminophen 1,000 MG/100 ML PIGGYBACK 16.7 MG IV ×2 (15:13→20:24)
[2024-09-21] MEDS: Famotidine/PF 20 MG/2 ML VIAL IVPUSH (20:22)
[2024-09-21] MEDS: Topiramate 25 MG TABLET 50 MG PO (20:23)
[2024-09-21] MEDS: 0.9 % Sodium Chloride Flush 3 ML SYRINGE IVFLUSH (20:23)
[2024-09-22] MEDS: Acetaminophen 1,000 MG/100 ML PIGGYBACK 16.7 MG IV (02:29)
[2024-09-22 03:39] VITALS: BP 112/61; PULSE 94; RESP 18; TEMP 36.4; O2SAT 97
[2024-09-22 06:05] LABS: MANUAL DIFF FLAG NO
[2024-09-22] MEDS: Lactated Ringers 1,000 ML 100 ML IVCONT (06:06)
[2024-09-22 06:12] LABS: Basophils Percent Auto 0.1 % (0-2); Hemoglobin 12.3 g/dl (12.0-16.0); Imm Gran Abs Auto 0.09 X10*3/uL (0.00-0.03); Imm Gran Pct Auto 0.6 % (0.0-0.4); Lymphocytes Percent Auto 6.8 % (20-40); Mean Corpuscular HGB Conc 33.2 g/dl (31.0-35.0); Mean Corpuscular Hemoglobin 27.4 pg (27.0-33.0); Mean Corpuscular Volume 82.4 fL (80.0-98.0); Mean Platelet Volume 10.7 fL (9.4-12.3); Monocytes Absolute Auto 0.9 X10*3/uL (0.1-1.2); Monocytes Percent Auto 5.9 % (2-11); Neutrophils Absolute Auto 13.2 x10*3/uL (2.0-8.3); Neutrophils Percent Auto 86.6 % (45-73); Platelet Count 361 X10*3/uL (160-400); Red Blood Count 4.49 X10*6/uL (4.20-5.50); Red Cell Distribution Width 13.4 % (11.0-16.0); White Blood Count 15.2 X10*3/uL (4.8-10.8)
[2024-09-22 06:25] LABS: Anion Gap 18 (12-20); Blood Urea Nitrogen 6 mg/dL (9-16); Calcium 9.3 mg/dL (8.4-10.2); Carbon Dioxide 17 mmol/L (22-29); Chloride 110 mmol/L (96-108); Creatinine Clr Calc Pharmacy 147.9; Estimated Glomerular Filt Rate > 60; Glucose Random 99 mg/dL (60-115); Potassium 3.9 mmol/L (3.3-5.1); Sodium 141 mmol/L (135-145)
[2024-09-22] MEDS: 0.9 % Sodium Chloride Flush 3 ML SYRINGE IVFLUSH (06:56)
[2024-09-22] MEDS: Famotidine/PF 20 MG/2 ML VIAL IVPUSH (06:56)
[2024-09-22 07:44] VITALS: BP 135/79; PULSE 81; RESP 18; TEMP 36.7; O2SAT 95
[2024-09-22 07:45] VITALS: O2SAT 96
--- NOTE | 2024-09-22 07:59 | HO.POSTANES ---
Post Anesthesia Evaluation Post Anesthesia Evaluation Date of Service: 09/21/24 Vital Signs: Vital Signs Temp Pulse Resp BP Pulse Ox O2 Del Method 09/22/24 07:45 96 Room Air 09/22/24 07:44 98.0 F 81 18 135/79 95 Room Air 09/22/24 03:39 97.5 F 94 18 112/61 97 Room Air 09/21/24 23:55 97.4 F 94 18 143/81 H 95 Room Air Anesthesia: General Mental Status: Awake Pain Control: Satisfactory Nausea/Vomiting: None Hydration: Adequate Anesthesia-Related Issues: No Anes. Related Issues
--- NOTE | 2024-09-22 09:18 | MHC.CM.PN ---
Patient dc'd home self care prior to completion of CM assessment.
== END 2024-09-22 09:09 | disposition home or self-care (01) | DRG 620 ==
LOC: HO.SSSA 06:07 → HO.S3 10:01
PROVIDERS: Nurse Practitioner; Physician Assistant Surgical; Admitting Provider Surgery; Visit Provider Surgery
PROC: 0DB64Z3 Excision of Stomach, Percutaneous Endoscopic Approach, Vertical (ICD-10-PCS; CPT 43845; principal; 2024-09-21 07:30)
DX: E66.01 Morbid (severe) obesity due to excess calories (principal); Q43.3 Congenital malformations of intestinal fixation; Z68.42 Body mass index [BMI] 45.0-49.9, adult; I10 Essential (primary) hypertension; J45.909 Unspecified asthma, uncomplicated; K21.9 Gastro-esophageal reflux disease without esophagitis; M54.9 Dorsalgia, unspecified; G43.909 Migraine, unspecified, not intractable, without status migrainosus; K76.0 Fatty (change of) liver, not elsewhere classified; K74.00 Hepatic fibrosis, unspecified; Z79.899 Other long term (current) drug therapy
CPT/HCPCS: 36415; 80048; 80053; 80061; 81025; 83036; 83525; 84443; 85014; 85018; 85025; 85610; 85730; 86140; 86850; 86900; 86901; 88304; 88305; 88307; 88342; A4649; C9145; J0131; J0690; J1100; J1171; J2003; J2250; J2371; J2405; J2704; J2795; J3010; J7120

== ENCOUNTER → 2024-09-21 06:01 | Outpatient (BNV) | payer OTHER, SELFPAY | PROVIDERS: Admitting Provider Surgery; Visit Provider Surgery | DX: E66.01 Morbid (severe) obesity due to excess calories (principal); Z68.42 Body mass index [BMI] 45.0-49.9, adult | CPT/HCPCS: 43659; 43775; 99024; 99499 ==

== ENCOUNTER 2024-09-28 10:09 | Outpatient (AMB) | payer OTHER, SELFPAY ==
--- NOTE | 2024-09-28 10:15 | MHC.OFFVISWM ---
VS Expanded 09/28/24 11:31 BP 131/71 Blood Pressure Location Rt brachial Blood Pressure Position Sitting Pulse 89 Pulse Source Pulse Oximeter Temp 97.4 F Temperature Source Temporal Artery Scan Pulse Oximetry 98 Oxygen Delivery Method Room Air Height 5 ft 1 in Weight 244 lb 9.6 oz BMI 46.2 Body Fat % 51.6 Body Fat Mass 126.2 Fat Free Mass 118.4 Visceral Fat Rating 14.0 Body Water % 34.9 Body Water Mass 85.4 Muscle Mass/Score 112.4 Basal Metabolic Rate/Score 1,770 Intake Visit Reasons: (OV) PO LSG 09/21/24 Allergies semaglutide [From [employer]] Adverse Reaction (Intermediate, Verified 09/28/24 10:22) abd. pain, N/V, constipation HPI Comments Details: 24-year-old female returns to the office today in follow-up. She is 7 days post sleeve gastrectomy performed on 09/21/2024. Tolerating for celebrate rebuild shakes with 1 scoop each and proximally 40 oz of fluids. She has moved her bowels. Denies any significant pain. [facility] Medical History (Updated 09/23/24 @ 00:02 by Brown Drake) Cough Physical exam COVID-19 Liver fibrosis Steatosis, liver Acid reflux Palpitations Abnormal EKG Migraines HTN (hypertension) Back pain Morbid obesity Surgical History S/P laparoscopic sleeve gastrectomy History of esophagogastroduodenoscopy (EGD) Family History Mother No problems noted. Father Diabetes Social History Household Members: Family Housing: House Are you a primary patient care specialist to a significant other at home: No Do you presently have visiting nurse or other home services: No Alcohol intake: never Patient Tobacco Use Status: Never used Tobacco e-Cigarette/Vaping Use: Never Used Second Hand Smoke Exposure: No service: No Current occupational status: employed Current occupational exposures/hazards: No Cognitive needs: No Hearing needs: No Vision needs: Yes Physical Exam Vital Signs: Last Vital Signs Temp 97.4 F 09/28/24 11:31 Pulse 89 09/28/24 11:31 BP 131/71 11/12/24 11:31 Pulse Ox 98 09/28/24 11:31 Oxygen Delivery Method Room Air 09/28/24 11:31 BMI result Body Mass Index 46.2 GI Inspection: Yes incision (Clean, dry, intact.) Assessment & Plan Assessment & Plan (1) S/P laparoscopic sleeve gastrectomy: Code(s): Z98.84 - Bariatric surgery status Category: Surgical Plan: POD 7 s/p LSG on 09/21/[address] Levine Weight loss prior to surgery was 22.9 pounds or 8 % TBWL. Original weight on 03/15/24 was 284.2 pounds and op weight was 261.3 pounds. Be sure to text Dr Levine exactly 1 week after surgery your weight from your home scale so he can adjust your meal plan. Continue meal plan until f/u sean Meza in 2 weeks May shower, no submersion in bath for another week Continue abdominal binder with activity and exercise for the next 2 weeks. Exercise prior to surgery was treadmill and may resume No abdominal exercises for 6 weeks post operatively Will be emailed link to post op video for review Reminded of the pace of drinking, 2 mL per minute, 1 oz/15 min.
[2024-09-28 11:31] VITALS: BP 131/71; PULSE 89; TEMP 36.3; O2SAT 98; BMI 46.2
== END 2024-09-28 12:44 | disposition home or self-care (01) ==
PROVIDERS: Visit Provider Physician Assistant Surgical
DX: Z98.84 Bariatric surgery status (principal)
CPT/HCPCS: 99024

== ENCOUNTER 2024-10-06 07:10 | Emergency (ER) | payer OTHER, SELFPAY ==
[2024-10-06 07:13] VITALS: BP 124/65; PULSE 94; RESP 18; TEMP 36.7; O2SAT 97; BMI 46.0
--- NOTE | 2024-10-06 07:26 | ED_ITS ---
HPI - Neuro Symptoms/Deficit General Chief Complaint: Neuro Symptoms/Deficit Stated Complaint: Numbness in hands/feet post-op Time Seen by Provider: 10/06/24 07:18 Source: patient and old records reviewed Mode of arrival: ambulatory Limitations: no limitations History of Present Illness ED Provider: RIZWANA CALVILLO Narrative: 24 yo female with PMH of migraines, HTN, 2 weeks post op sleeve gastrectomy currently on 3 protein shakes a day and trying to reach her 40 ounces of water daily. Patient notes she has had tingling feeling in both hands and feet since early this AM. No swelling, no calf pain, no redness or swelling. Patient has no chest pain/sob. No diarrhea. Patient is currently on oral vitamins. Sent in by her surgeon for work up. Onset (ago): hour(s) (several) Location: other (hands and feet) History of same: No Severity: mild Quality: tingling Relieving factors: none Exacerbating factors: none Context: gradual onset On Anticoagulants: No Associated symptoms: denies other symptoms Treatments Prior to Arrival: none Related Data Home Medications ?Medication ?Instructions ?Recorded ?Confirmed pantoprazole 40 mg tablet,delayed 40 mg PO DAILY@0630 09/21/24 09/21/24 release sucralfate 100 mg/mL oral ml PO 09/28/24 suspension Previous Rx's ?Medication ?Instructions ?Recorded topiramate 50 mg tablet 50 mg PO BEDTIME 30 days #30 tabs 05/24/24 lisinopril 5 mg tablet 5 mg PO DAILY 90 days #90 tabs 09/13/24 potassium chloride 20 mEq/15 mL 10 meq (7.5 mL) PO DAILY 10 days 10/06/24 oral liquid #75 mL Allergies Allergy/AdvReac Type Severity Reaction Status Date / Time semaglutide [From Juan] AdvReac Intermediate abd. pain, Verified 10/06/24 07:14 N/V, constipation Review of Systems 2 Review of Systems: Constitutional : No Fever, No Chills, No Fatigue ENT/Mouth : No sore throat, No Rhinorrhea Eyes: No Eye Pain, No Swelling, No Redness Cardiovascular : No Chest Pain, No SOB, No Dyspnea on Exertion Respiratory : No Cough, No Sputum Gastrointestinal : No Nausea, No Vomiting, No Diarrhea, No abdominal Pain Genitourinary : No Dysuria, No Urinary Frequency, No Hematuria, Musculoskeletal : No joint pain, No Myalgias, No Joint Swelling Skin : No Skin Lesions, No rash Neuro : No Weakness, pos Numbness, No Dizziness, no Headache Psych : No Anxiety/Panic, No Depression All other systems reviewed and are negative [facility] Past Medical History Attestation statement: The following information was validated with the patient. Source: old records reviewed Medical History Cough Physical exam COVID-19 Liver fibrosis Steatosis, liver Acid reflux Palpitations Abnormal EKG Migraines HTN (hypertension) Back pain Morbid obesity Surgical History S/P laparoscopic sleeve gastrectomy History of esophagogastroduodenoscopy (EGD) Family History Family History Mother No problems noted. Father Diabetes Social History Social History Household Members: Family Housing: House Are you a primary health care assistant to a significant other at home: No Do you presently have visiting nurse or other home services: No Alcohol intake: never Patient Tobacco Use Status: Never used Tobacco Smoked in Last 30 Days: No e-Cigarette/Vaping Use: Never Used Second Hand Smoke Exposure: No Use of substances other than those prescribed or required for medical reasons: No Advance Directives: No Advance Directives Information Provided: Yes service: No Current occupational status: employed Current occupational exposures/hazards: No Cognitive needs: No Hearing needs: No Vision needs: Yes Physical Exam 2 Vital Signs: Vital Signs: Last Vital Signs Temp 98.0 F 10/06/24 07:13 Pulse 94 10/06/24 07:13 Resp 18 10/06/24 07:13 BP 124/65 10/06/24 07:13 Pulse Ox 97 10/06/24 07:13 O2 Del Method Room Air 10/06/24 07:13 BMI result Body Mass Index 46.0 Appearance: Alert. Oriented X3. No acute distress. Eyes: Pupils equal, round and reactive to light. ENT: Pharynx normal. Neck: Normal inspection. Neck supple. CVS: Normal heart rate and rhythm. Pulses normal. Respiratory: No respiratory distress. Breath sounds normal. Abdomen: Soft and non-tender. Skin: Skin warm and dry. Normal skin color. Normal skin turgor. Extremities: No lower extremity edema. No calf ttp Neuro: Oriented X 3. No motor deficit. No sensory deficit. Medications Administered Generic Name Dose Route Start Last Admin Trade Name Freq PRN Reason Stop Dose Admin Potassium Chloride 10 meq in 100 mls @ 100 mls/hr 10/06/24 08:11 10/06/24 08:40 Potassium Chloride/H20 IV 10/06/24 09:10 100 mls/hr ONCE ONE Administration Discontinued Medications Generic Name Dose Route Start Last Admin Trade Name Freq PRN Reason Stop Dose Admin Lactated Ringer's 1,000 mls @ 999 mls/hr 10/06/24 07:25 10/06/24 07:34 Lr IV 10/06/24 08:25 999 mls/hr .Q1H1M ONE Administration Potassium Chloride 40 meq 10/06/24 08:06 10/06/24 08:40 Potassium Chloride Packet 20 Meq Packet PO 10/06/24 08:07 40 meq ONCE ONE Administration Medical Decision Making Medical Decision Making MDM Narrative: 24 yo female with PMH of migraines, HTN, 2 weeks post op sleeve gastrectomy here with c/o tingling in both hands and feet. Patient has no swelling, calf pain, incisions are c/d/i. Patient is not having any diarrhea. She does note her water intake is subpar but she is keeping the protein shakes down. Given the bilateral tingling and lack of evidence of swelling/calf pain I am suspect lyte abnormality and dehydration. Labs and liter of fluid ordered. Differential Diagnosis Differential Diagnoses: The differential diagnosis associated with the presentation includes lyte abnormality, dehydration Admission/Observation Consideration of admission/observation: Escalation of care including admission/observation considered improved stable for DC after repletion Lab Data [facility] Lab Attestation statement: I reviewed the patient's lab results. 10/06/24 07:31 10/06/24 07:31 Labs: Lab Results 10/06/24 Range/Units 07: WBC 7.7 (4.8-10.8) X10*3/uL RBC 5.11 (4.20-5.50) X10*6/uL Hgb 13.9 (12.0-16.0) g/dl Hct 41.4 (37.0-47.0) % MCV 81.0 (80.0-98.0) fL MCH 27.2 (27.0-33.0) pg MCHC 33.6 (31.0-35.0) g/dl RDW 13.2 (11.0-16.0) % Plt Count 295 (160-400) X10*3/uL MPV 10.6 (9.4-12.3) fL Immature Gran % (Auto) 0.3 (0.0-0.4) % Neut % (Auto) 64.9 (45-73) % Lymph % (Auto) 22.7 (20-40) % Rusk % (Auto) 8.3 (2-11) % Eos % (Auto) 3.0 (0-4) % Baso % (Auto) 0.8 (0-2) % Lymph # (Auto) 1.8 (1.2-4.9) X10*3/uL Rusk # (Auto) 0.6 (0.1-1.2) X10*3/uL Eos # (Auto) 0.2 (0.0-0.4) X10*3/uL Baso # (Auto) 0.1 (0.0-0.2) X10*3/uL Abs Immat Gran (auto) 0.02 (0.00-0.03) X10*3/uL Absolute Neuts (auto) 5.0 (2.0-8.3) x10*3/uL Absolute Nucleated RBC 0.000 (0.0-0.012) X10*3/uL Nucleated RBC % (auto) 0.0 (0.0-0.2) /100WBC Sodium 141 (135-145) mmol/L Potassium 3.2 L (3.3-5.1) mmol/L Chloride 101 (96-108) mmol/L Carbon Dioxide 25 (22-29) mmol/L Anion Gap 18 (12-20) BUN 10 (9-16) mg/dL Creatinine 0.79 (0.5-1.4) mg/dL Estim Creat Clear Calc 127.3 Estimated GFR > 60 Random Glucose 86 (60-115) mg/dL Calcium 9.8 (8.4-10.2) mg/dL Magnesium 1.9 (1.6-2.6) mg/dL Total Bilirubin 0.4 (0.0-1.0) mg/dL Direct Bilirubin 0.2 (0.0-0.5) mg/dL AST 28 (5-31) U/L ALT 38 H (0-31) U/L Alkaline Phosphatase 86 (39-117) U/L Total Protein 7.7 (6.5-8.0) g/dL Albumin 4.3 (3.5-5.0) g/dL Vitamin B12 927 H (200-900) pg/mL Folate 9.8 (> or = 4.0) ng/mL External Record Review External record reviewed: Inpatient record and Outpatient record Prescription Management I considered prescription management with: Other Discharge Plan Discharge Clinical Impression: Acute hypokalemia, Paresthesia Patient Disposition: Home, Self-Care Instructions: Hypokalemia (ED), Paresthesia (ED) Additional Instructions: return for any worsening symptoms or concerns follow up if your symptoms return - please stay hydrated follow up with your bariatric team as well Prescriptions: New potassium chloride 20 mEq/15 mL liquid 10 meq PO DAILY 10 Days Qty: 75 0RF No Action lisinopril 5 mg tablet 5 mg PO DAILY 90 Days Qty: 90 1RF pantoprazole 40 mg tablet,delayed release (DR/EC) 40 mg PO DAILY@0630 topiramate 50 mg tablet 50 mg PO BEDTIME 30 Days Qty: 30 3RF sucralfate 100 mg/mL suspension PO Print Language: Citizen [place]
[2024-10-06 07:34] LABS: MANUAL DIFF FLAG NO
[2024-10-06] MEDS: Lactated Ringers 1,000 ML 999 ML IV (07:34)
[2024-10-06 07:35] LABS: Basophils Absolute Auto 0.1 X10*3/uL (0.0-0.2); Basophils Percent Auto 0.8 % (0-2); Eosinophils Absolute Auto 0.2 X10*3/uL (0.0-0.4); Hematocrit 41.4 % (37.0-47.0); Hemoglobin 13.9 g/dl (12.0-16.0); Imm Gran Abs Auto 0.02 X10*3/uL (0.00-0.03); Imm Gran Pct Auto 0.3 % (0.0-0.4); Lymphocytes Absolute Auto 1.8 X10*3/uL (1.2-4.9); Lymphocytes Percent Auto 22.7 % (20-40); Mean Corpuscular HGB Conc 33.6 g/dl (31.0-35.0); Mean Corpuscular Hemoglobin 27.2 pg (27.0-33.0); Mean Platelet Volume 10.6 fL (9.4-12.3); Monocytes Absolute Auto 0.6 X10*3/uL (0.1-1.2); Monocytes Percent Auto 8.3 % (2-11); Neutrophils Percent Auto 64.9 % (45-73); Platelet Count 295 X10*3/uL (160-400); Red Blood Count 5.11 X10*6/uL (4.20-5.50); Red Cell Distribution Width 13.2 % (11.0-16.0); White Blood Count 7.7 X10*3/uL (4.8-10.8)
[2024-10-06 07:54] LABS: Alanine Aminotransferase 38 U/L (0-31); Albumin Level 4.3 g/dL (3.5-5.0); Alkaline Phosphatase 86 U/L (39-117); Anion Gap 18 (12-20); Aspartate Amino Transferase 28 U/L (5-31); Bilirubin Direct 0.2 mg/dL (0.0-0.5); Bilirubin Total 0.4 mg/dL (0.0-1.0); Blood Urea Nitrogen 10 mg/dL (9-16); Calcium 9.8 mg/dL (8.4-10.2); Carbon Dioxide 25 mmol/L (22-29); Chloride 101 mmol/L (96-108); Creatinine Clr Calc Pharmacy 127.3; Estimated Glomerular Filt Rate > 60; Glucose Random 86 mg/dL (60-115); Magnesium 1.9 mg/dL (1.6-2.6); Potassium 3.2 mmol/L (3.3-5.1); Sodium 141 mmol/L (135-145); Total Protein 7.7 g/dL (6.5-8.0)
[2024-10-06 08:26] LABS: Folate 9.8 ng/mL (> or = 4.0); Vitamin B12 927 pg/mL (200-900)
[2024-10-06] MEDS: Potassium Chloride/H20 10 MEQ/100 ML PIGGYBACK 100 MEQ IV (08:40)
[2024-10-06] MEDS: Potassium Chloride Packet 20 MEQ PACKET 40 MEQ PO (08:40)
[2024-10-06 10:50] VITALS: BP 124/65; PULSE 94; RESP 18; TEMP 36.6; O2SAT 98
== END 2024-10-06 10:51 | disposition home or self-care (01) ==
PROVIDERS: Emergency Provider Emergency Medicine; PCP Internal Medicine
DX: E87.6 Hypokalemia (principal); R20.2 Paresthesia of skin
CPT/HCPCS: 36415; 80048; 80076; 82607; 82746; 83735; 85025; 96361; 96365; 99284; J3480; J7120

== ENCOUNTER 2024-10-18 11:30 | Outpatient (AMB) | payer OTHER, SELFPAY ==
--- NOTE | 2024-10-18 11:46 | A.OFFVIS_ITS ---
VS Expanded 10/18/24 11:49 Height 5 ft 1 in Weight 236 lb BMI 44.6 Intake Visit Reasons: TELEPHONE PO LSG 09/21/24 Allergies semaglutide [From Juan] Adverse Reaction (Intermediate, Verified 10/06/24 07:14) abd. pain, N/V, constipation Medication List - Last Reconciled 10/18/24 by RAPHAEL Gardner lisinopril 5 mg PO DAILY 90 days pantoprazole 40 mg PO DAILY@0630 potassium chloride 10 mEq (7.5 mL) PO DAILY 10 days sucralfate mL PO topiramate 50 mg PO BEDTIME 30 days HPI Comments Details: This?is a?24?yo female who is s/p LSG 09/21/2024. Presents for 1 month post op visit. Weight at last visit on 09/28/2024 was 244.6 pounds with a BMI of 46.2, weight today is 236 pounds, representing a 7.6 pound weight loss with a BMI today of 44.6.? No complaints of nausea, emesis, abdominal pain or reflux. Constipation- started milk of magnesia, planning to start something OTC recommended by Dr. Nunes. Was seen in ER and found to be hypokalemic, pt reports symptoms have improved while taking potassium. Present meal plan includes: 2 Celebrate Rebuild shakes 2 Celebrate bar 1 egg MVI Exercise routine includes: treadmill 5x/week, 400 calories PFSH Medical History Cough Physical exam COVID-19 Liver fibrosis Steatosis, liver Acid reflux Palpitations Abnormal EKG Migraines HTN (hypertension) Back pain Morbid obesity Surgical History S/P laparoscopic sleeve gastrectomy History of esophagogastroduodenoscopy (EGD) Family History Mother No problems noted. Father Diabetes Social History Household Members: Family Housing: House Are you a primary medicare contact specialist to a significant other at home: No Do you presently have visiting nurse or other home services: No Alcohol intake: never Patient Tobacco Use Status: Never used Tobacco e-Cigarette/Vaping Use: Never Used Second Hand Smoke Exposure: No service: No Current occupational status: employed Current occupational exposures/hazards: No Cognitive needs: No Hearing needs: No Vision needs: Yes Telehealth Telehealth Telehealth Platform: Telephone Location of provider rendering services: practice address Location of patient: address on file Patient Identification confirmed using: Name, : Yes Telehealth method: voice only Patient verbally consented to treatment: Yes Patient verbally consented to billing insurance company: Yes Patient informed of any privacy concerns related to visit: Yes Minutes spent on Phone/Video with Pt.: 14 Assessment & Plan Assessment & Plan (1) S/P laparoscopic sleeve gastrectomy: Code(s): Z98.84 - Bariatric surgery status Category: Surgical (2) Morbid obesity: Comment: tried Wegovy for weight loss but had adverse reaction Code(s): E66.01 - Morbid (severe) obesity due to excess calories Category: Medical Plan Will order labs to follow up on K+ levels, pt can have done later this week. Continue meal plan per Dr. Nunes, exercising to goal. Reviewed heavy lifting restrictions. RTC 1 month. I spent a total of 30 minutes reviewing/updating records, examining the patient and counseling the patient on weight management as detailed above. Orders: Orders Basic Metabolic Panel Today E87.6 - Hypokalemia
[2024-10-18 11:49] VITALS: BMI 44.6
== END 2024-10-18 14:05 | disposition home or self-care (01) ==
LOC: HO.HBS 14:03
PROVIDERS: PCP Internal Medicine; Visit Provider Physician Assistant Surgical
DX: E66.01 Morbid (severe) obesity due to excess calories (principal); Z98.84 Bariatric surgery status
CPT/HCPCS: 99024

== ENCOUNTER 2024-11-29 11:40 | Outpatient (AMB) | payer OTHER, SELFPAY ==
--- NOTE | 2024-11-29 11:36 | MHC.OFFVISWM ---
VS Expanded 11/29/24 11:39 Height 5 ft 1 in Weight 218 lb BMI 41.2 Intake Visit Reasons: TELEPHONE PO LSG 09/21/24 Allergies semaglutide [From [employer]] Adverse Reaction (Intermediate, Verified 10/06/24 07:14) abd. pain, N/V, constipation Medication List - Last Reconciled 11/29/24 by RAPHAEL Gardner lisinopril 5 mg PO DAILY 90 days pantoprazole 40 mg PO DAILY@0630 sucralfate mL PO topiramate 50 mg PO BEDTIME 30 days HPI Comments Details: This?is a?24 yo female who is s/p LSG 09/21/2024. Presents for 2mo post op visit. Weight at last visit on 10/18/2024 was 236 pounds with a BMI of 44.6, weight today is 218 pounds, representing a 18 pound weight loss with a BMI today of 41.2.? No complaints of nausea, emesis, abdominal pain or reflux, or constipation. Remains off lisinopril, BP readings have been good. Present meal plan includes: 2 Celebrate Rebuild shakes 2 Celebrate bar 1 small meal of meat/veg MVI Exercise routine includes: treadmill 5x/week, 400 calories PFSH Medical History Cough Physical exam COVID-19 Liver fibrosis Steatosis, liver Acid reflux Palpitations Abnormal EKG Migraines HTN (hypertension) Back pain Morbid obesity Surgical History S/P laparoscopic sleeve gastrectomy History of esophagogastroduodenoscopy (EGD) Family History Mother No problems noted. Father Diabetes Social History Household Members: Family Housing: House Are you a primary career and transition teacher to a significant other at home: No Do you presently have visiting nurse or other home services: No Alcohol intake: never Patient Tobacco Use Status: Never used Tobacco e-Cigarette/Vaping Use: Never Used Second Hand Smoke Exposure: No service: No Current occupational status: employed Current occupational exposures/hazards: No Cognitive needs: No Hearing needs: No Vision needs: Yes Telehealth Telehealth Telehealth Platform: Telephone Location of provider rendering services: other Location of patient: address on file Patient Identification confirmed using: Name, : Yes Telehealth method: voice only Patient verbally consented to treatment: Yes Patient verbally consented to billing insurance company: Yes Patient informed of any privacy concerns related to visit: Yes Minutes spent on Phone/Video with Pt.: 14 Assessment & Plan Assessment & Plan (1) S/P laparoscopic sleeve gastrectomy: Code(s): Z98.84 - Bariatric surgery status Category: Surgical (2) Morbid (severe) obesity due to excess calories: Code(s): E66.01 - Morbid (severe) obesity due to excess calories Category: Medical Plan Pt to continue meal plan per Dr Nunes, send weekly weight measurements. Cleared for all activity, no restrictions. Dose lisinopril per BP parameters. Due to complete carafate and PPI course this month. RTC 1 month. I spent a total of 30 minutes reviewing/updating records, examining the patient and counseling the patient on weight management as detailed above.
[2024-11-29 11:39] VITALS: BMI 41.2
== END 2024-11-29 11:44 | disposition home or self-care (01) ==
LOC: HO.HBS 11:40
PROVIDERS: PCP Internal Medicine; Visit Provider Physician Assistant Surgical
DX: Z98.84 Bariatric surgery status (principal); E66.01 Morbid (severe) obesity due to excess calories
CPT/HCPCS: 99024

== ENCOUNTER → 2024-11-29 11:40 | Outpatient (BNVA) | payer OTHER, SELFPAY | PROVIDERS: PCP Internal Medicine; Visit Provider Physician Assistant Surgical ==

== ENCOUNTER 2025-01-10 12:17 | Outpatient (AMB) | payer OTHER, SELFPAY ==
--- NOTE | 2025-01-10 12:08 | A.OFFVIS_ITS ---
VS Expanded 01/10/25 12:10 Height 5 ft 1 in Weight 203 lb BMI 38.4 Intake Visit Reasons: TELEPHONE PO LSG 09/21/24 Allergies semaglutide [From [employer]govy] Adverse Reaction (Intermediate, Verified 10/06/24 07:14) abd. pain, N/V, constipation Medication List - Last Reconciled 01/10/25 by RAPHAEL Gardner lisinopril 5 mg PO DAILY 90 days topiramate 50 mg PO BEDTIME PRN HPI Comments Details: This?is a?24 yo female who is s/p LSG 09/21/2024. Presents for 3mo post op visit. Weight at last visit on 11/29/2024 was 218 pounds with a BMI of 41.2, weight today is 203 pounds, representing a 15 pound weight loss with a BMI today of 38.4.? No complaints of nausea, emesis, abdominal pain or reflux, or constipation. Remains off lisinopril, BP readings have been good. No reflux off PPI/carafate. Present meal plan includes: 2 Celebrate Rebuild shakes 2 Celebrate bar 1 small meal of meat/veg- tolerating different meats/eggs MVI Exercise routine includes: treadmill 5x/week, 400 calories PFSH Medical History Cough Physical exam COVID-19 Liver fibrosis Steatosis, liver Acid reflux Palpitations Abnormal EKG Migraines HTN (hypertension) Back pain Morbid obesity Surgical History S/P laparoscopic sleeve gastrectomy History of esophagogastroduodenoscopy (EGD) Family History Mother No problems noted. Father Diabetes Social History Household Members: Family Housing: House Are you a primary out of school hours care worker to a significant other at home: No Do you presently have visiting nurse or other home services: No Alcohol intake: never Patient Tobacco Use Status: Never used Tobacco e-Cigarette/Vaping Use: Never Used Second Hand Smoke Exposure: No service: No Current occupational status: employed Current occupational exposures/hazards: No Cognitive needs: No Hearing needs: No Vision needs: Yes Telehealth Telehealth Telehealth Platform: Telephone Location of provider rendering services: other Location of patient: address on file Patient Identification confirmed using: Name, : Yes Telehealth method: voice only Patient verbally consented to treatment: Yes Patient verbally consented to billing insurance company: Yes Patient informed of any privacy concerns related to visit: Yes Minutes spent on Phone/Video with Pt.: 14 Assessment & Plan Assessment & Plan (1) S/P laparoscopic sleeve gastrectomy: Code(s): Z98.84 - Bariatric surgery status Category: Medical (2) Obesity: Code(s): E66.9 - Obesity, unspecified Category: Medical Plan Pt to continue meal plan per Dr Jacobs Check in weekly via text. No reflux off PPI/carafate. Exercising to goal. RTC 6 weeks. I spent a total of 30 minutes reviewing/updating records, examining the patient and counseling the patient on weight management as detailed above.
[2025-01-10 12:10] VITALS: BMI 38.4
--- OUTSIDE RECORDS SUMMARY | 2025-01-10 14:03 | XMS_ITS | Clinical Summary ---
Author Organization [facility] Address [address] [place] [id number] Phone Care Team Providers Care Bench Carpenter Name Role Phone Unavailable Primary Care Provider Unavailabl e Immunizations Immunization Administration Dates Next Due DTaP 5 08/30/2005, 3,01/12/2002,2001 ,2001 H1N1 11/30/2009,09/14/2009 Hep B, ped/adol 01/12/2002,2001,2001 Hib (PRP-T) 12/09/2002,01/12/2002,2001 ,2001 IPV 08/30/2005,05/06/2002,2001 ,2001 Influenza Split 11/19/2011,11/08/2010 Influenza, injectable, trivalent 11/30/2009,08/18,09/14/2007 MMR 08/30/2005,06/24/2002 Pneumococcal Conjugate 07/25/2003,01/12/2002,10/2001,2001 Varicella 09/14/2008,06/24/2002 Family History Relation Name Status Comments Brother Alive Brother: Alive and well Father Alive Father: Diabete s mellitus Mother Alive Mother: Alive a nd well Sister 1 Sister: Obesity , Asthma Sister 2 Alive Sister: Obesity , Asthma Social History Tobacco Use Types Packs/Day Years Used Date Smoking Tobacco: Never Assessed Comments Unknown Sex and Gender Information Value Date Recorded Sex Assigned at Not on file Legal Sex Female 4:44 PM EDT Gender Identity Not on file Sexual Orientation Not on file Last Filed Vital Signs Vital Sign Reading Time Taken Comments Blood Pressure 110/68 11/19/2011 12:00 AM EST Pulse - - Temperature 36.8 ??C (98.2 ??F) 03/22/2011 12:00 AM E DT Respiratory Rate - - Oxygen Saturation 98% 10/17/2010 12:00 AM EST Inhaled Oxygen Concentration - - Weight 53.5 kg (118 lb) 11/19/2011 12:00 AM EST Height 137.2 cm (4' 6 ) 11/19/2011 12:00 AM EST Body Mass Index 28.45 11/19/2011 12:00 AM EST Plan of Treatment Health Maintenance Due Date Last Done Comments Hepatitis B Vaccines (3 of 3 - 3-dose series) 03/09/2002 01/12/2002, 2001, 2001 DTaP,Tdap,and Td Vaccines (6 - Tdap) 2012 08/30/2005, 12/09/2002, 01/12/2002, Additional history exists HPV Vaccines (1 - 3-dose series) 2016 Men B Vaccine (1 of 2 - Standard) 2017 Influenza Vaccines (#1) 2024 11/19/19 12, 11/08/2010, 11/30/2009, Additional history exists COVID-19 Vaccine ( season) 2024 HIB Vaccines Completed 12/09/2002, 12/19, 2001, Additional history exists Pneumococcal Vaccine Completed 07/25/2003, 01/12/2002, 2001, Additional history exists IPV Vaccines Completed 08/30/2005, 04/18, 2001, Additional history exists MMR Vaccines Completed 08/30/2005, 06/24/2002 Varicella Vaccines Completed 09/14/2008, 06/24/2002 Hepatitis A Vaccines Aged Out No long er eligible based on patient's age to complete this topic Meningococcal Vaccine Aged Out No elissa fede eligible based on patient's age to complete this topic
--- OUTSIDE RECORDS SUMMARY | 2025-01-10 14:03 | XMS_ITS | Encounter Summary ---
Author Organization [facility] Address [address] [place] [address] Phone Care Team Providers Care High [employer] Librarian Name Role Phone Becca Olguin MD Primary Care Provider [phone] Encounter Details Date Type Department Care Team (Late st Contact Info) Description 07/03/2017 Conversion Encounter [facility] [address] [place] [address] Social History Tobacco Use Types Packs/Day Years Used Date Smoking Tobacco: Never Assessed Comments Unknown Sex and Gender Information Value Date Recorded Sex Assigned at Not on file Legal Sex Female 4:44 PM EDT Gender Identity Not on file Sexual Orientation Not on file documented as of this encounter Plan of Treatment Not on file documented as of this encounter Visit Diagnoses Not on filedocumented in this encounter Care Teams [employer] Librarian Relationship Specialty Start Date End Date Becca Olguin MD [address] [place] [address] PCP - General 06/27/17 01/01/23 documented as of this encounter
--- OUTSIDE RECORDS SUMMARY | 2025-01-10 14:03 | XMS_ITS | Encounter Summary ---
Author Organization [facility] Address [address] [place] [address] Phone Care Team Providers Care Director Of Physiotherapy Services Name Role Phone Becca Olguin MD Primary Care Provider [phone] Encounter Details Date Type Department Care Team (Late st Contact Info) Description 08/13/2011 Documentation [facility] [place] [address] [place], [place] [phone] Family Medicine, Physician [address] [place], [place] [address] Social History Tobacco Use Types Packs/Day Years [...] on filedocumented in this encounter Care Teams Director Of Physiotherapy Services Relationship Specialty Start Date End Date Becca Olguin MD [address] [place] [address] [place] [address] PCP - General 06/27/17 01/01/23 documented as of this encounter
--- OUTSIDE RECORDS SUMMARY | 2025-01-10 14:03 | XMS_ITS | Encounter Summary ---
Author Organization [facility] Address [address] [place] [address] Phone Care Team Providers Care Nurse Head Name Role Phone Becca Olguin MD Primary Care Provider [phone] Encounter Details Date Type Department Care Team (Late st Contact Info) Description 11/20/2011 Documentation [facility] [place] Family Medicine [address] [place], [place] [id number] Family Medicine, Physician [address] [place], [place] [address] Social History Tobacco Use Types Packs/Day Years [...] on filedocumented in this encounter Care Teams Nurse Head Relationship Specialty Start Date End Date Becca Olguin MD [address] [place] [address] [place] [address] PCP - General 06/27/17 01/01/23 documented as of this encounter
== END 2025-01-10 12:33 | disposition home or self-care (01) ==
LOC: HO.HBS 12:17
PROVIDERS: PCP Internal Medicine; Visit Provider Physician Assistant Surgical
DX: E66.812 Obesity, class 2 (principal); Z68.34 Body mass index [BMI] 34.0-34.9, adult; Z90.3 Acquired absence of stomach [part of]; Z98.84 Bariatric surgery status
CPT/HCPCS: 98012

== ENCOUNTER 2025-09-26 18:25 | Emergency (ER) | payer OTHER, SELFPAY ==
--- NOTE | ~2025-09-26 | CT_ITS ---
CLINICAL HISTORY: pain, hx gastric sleeve, SBO?? CT abdomen and pelvis with contrast Comparison: US/MO/SR - US ABDOMEN COMPLETE WITH LIVER ELASTOGRAPHY - 03/24/24 10:[address]/MO/SR - CT ABDOMEN PELVIS WITHOUT IV CONTRAST - 02/04/23 14:39 EDT Findings: The lung bases are clear. Hepatomegaly. Right liver 19.6 cm. No dilated bowel loops, pneumoperitoneum, or pneumatosis. Gastric sleeve. Uterus and ovaries unremarkable. The appendix is not identified. No ascites or hernia. No acute fracture. IMPRESSION: 1. No acute findings. No bowel obstruction. 2. Hepatomegaly. This document has been electronically signed by: Mala Kaplan MD on 09/27/2025 00:12:58
[2025-09-26 18:55] VITALS: BP 142/64; PULSE 85; RESP 16; TEMP 36.8; O2SAT 98; BMI 49.4
--- NOTE | 2025-09-26 18:56 | ED.GENADULT ---
HPI - General Adult General Chief complaint: Abdominal Pain Stated complaint: ? HERNIA Time Seen by Provider: 09/26/25 20:44 Source: patient Limitations: no limitations History of Present Illness ED Provider: Marisela Wells PA-C HPI narrative: 25-year-old female with a history of morbid obesity, fatty liver disease, vitamin-D and vitamin B12 deficiencies, who was now status post laparoscopic sleeve gastrectomy 2023, migraine, hypertension, chronic back pain, who presents with abdominal pain. Patient states over the past 2 months she has had central abdominal discomfort radiating up to the central chest. Pain described as a burning sensation with the intermittent nausea and dry heaving. Patient states she only has bowel movements every 2-3 days. She denies abdominal distention or inability to pass flatus. Patient has not checked in with her surgeon in regard to her ongoing abdominal discomfort. Related Data Home Medications ?Medication ?Instructions ?Recorded ?Confirmed topiramate 50 mg tablet 50 mg PO BEDTIME PRN migraines 01/10/25 Previous Rx's ?Medication ?Instructions ?Recorded lisinopril 5 mg tablet 5 mg PO DAILY 90 days #90 tabs 09/13/24 Held on 09/22/24. Instructions: Resume on 09/23/24. Check your blood pressure every morning as soon as you wake up and send it to Dr. Levine. Do no take the blood pressure medication if the blood pressure is below 120/70. Wait every day to hear back from Dr. Levine before you take the medication. metoclopramide HCl 10 mg tablet 10 mg PO Q6H PRN nausea and 09/27/25 (Reglan) vomiting #12 tabs sucralfate 100 mg/mL oral 10 ml PO QID PRN indigestion #300 09/27/25 suspension (Carafate) mL Allergies Allergy/AdvReac Type Severity Reaction Status Date / Time [facility]aglutide [facility] AdvReac Intermediate abd. pain, Verified 09/26/25 18:58 N/V, constipation Review of Systems Review of Systems: Yes all other systems are reviewed and are negative Constitutional: Constitutional: Denies fatigue and Denies fever(s) Cardiovascular: Cardiovascular: Denies chest pain and Denies dyspnea Respiratory: Respiratory: Denies dyspnea Gastrointestinal: Gastrointestinal: Reports abdominal pain, Reports constipation, Reports dyspepsia, Reports nausea and Denies vomiting Endocrine: Endocrine: Denies fatigue [facility] Past Medical History Attestation statement: The following information was validated with the patient. Medical History Cough Physical exam COVID-19 Liver fibrosis Steatosis, liver Acid reflux Palpitations Abnormal EKG Migraines HTN (hypertension) Back pain Morbid obesity Surgical History S/P laparoscopic sleeve gastrectomy History of esophagogastroduodenoscopy (EGD) Family History Family History Mother No problems noted. Father Diabetes Social History Social History Household Members: Family Housing: House Are you a primary janitor caretaker to a significant other at home: No Do you presently have visiting nurse or other home services: No Alcohol intake: never Patient Tobacco Use Status: Never used Tobacco e-Cigarette/Vaping Use: Never Used Second Hand Smoke Exposure: No service: No Current occupational status: employed Current occupational exposures/hazards: No Cognitive needs: No Hearing needs: No Vision needs: Yes Physical Exam ED Vital Signs: Vital Signs - 24 hr 09/26/25 18:55 09/26/25 20:11 09/26/25 22:13 Temperature 98.2 F 98.4 F 97.8 F Pulse Rate 85 122 H 83 Respiratory Rate 16 16 16 Blood Pressure 142/64 H 144/99 H 113/55 L Pulse Oximetry 98 100 96 Oxygen Delivery Method Room Air Room Air Room Air 09/27/25 00:00 09/27/25 01:02 Temperature 99.0 F 99.0 F Pulse Rate 98 98 Respiratory Rate 22 H 22 H Blood Pressure 124/58 L 124/58 L Pulse Oximetry 98 98 Oxygen Delivery Method Room Air Room Air BMI result Body Mass Index 49.4 Const Other: Alert Orientation/consciousness: patient oriented x3 Resp Effort & Inspection: normal respiratory effort Cardio Other: Normal peripheral perfusion GI Other: Abdomen is soft, obese, nondistended nontender no guarding Skin Other: Warm dry no rash Neuro General: patient oriented x3, gait normal, no focal motor deficits and CN's II-XI intact bilaterally Psych Other: Cooperative Course Course Course Narrative: Rapid medical examination performed in triage by Carolina Roberts PA-C: Patient is a 25 year old assigned female at presenting to the emergency department with epigastric pain and concern about her hiatal hernia. Detailed physical exam and review of systems are deferred to the wealth management advisor. Labs ordered. Patient placed back in the waiting room pending room availability and results. Medications Administered Discontinued Medications Generic Name Dose Route Start Last Admin Trade Name Anne-Marie PRN Reason Stop Dose Admin Famotidine 20 mg 09/26/25 21:03 09/26/25 21:21 Famotidine/Pf 20 Mg/2 Ml Vial IVPUSH 09/26/25 21:04 20 mg ONCE ONE Administration Iohexol 85 ml 09/26/25 23:55 09/26/25 23:59 Iohexol 350 Mg/Ml 100 Ml Infus..Btl IV 09/26/25 23:56 85 ml ONCE ONE Administration Metoclopramide HCl 10 mg 09/26/25 21:03 09/26/25 21:21 Metoclopramide Hcl 10 Mg/2 Ml Vial IVPUSH 09/26/25 21:04 10 mg ONCE ONE Administration Morphine Sulfate 4 mg 09/26/25 21:03 09/26/25 21:21 Morphine Sulfate 4 Mg/Ml Cartridge IVPUSH 09/26/25 21:04 4 mg ONCE ONE Administration Protocol Medical Decision Making Medical Decision Making MDM Narrative: 25-year-old female with a history of morbid obesity, fatty liver disease, vitamin-D and vitamin B12 deficiencies, who was now status post laparoscopic sleeve gastrectomy 2023, migraine, hypertension, chronic back pain, who presents with abdominal pain. Patient states over the past 2 months she has had central abdominal discomfort radiating up to the central chest. Pain described as a burning sensation with the intermittent nausea and dry heaving. Patient states she only has bowel movements every 2-3 days. She denies abdominal distention or inability to pass flatus. Patient has not checked in with her surgeon in regard to her ongoing abdominal discomfort. Problem: Status post sleeve gastrectomy, vitamin deficiencies, fatty liver, obesity, constipation History: Per patient I have considered the following differential diagnoses: GERD/gastritis exacerbation, perforated peptic ulcer, constipation, bowel obstruction Plan: Patient here with vague abdominal discomfort, she has had it for an extended period of time, she has no obstructive symptoms, she is likely constipated which is exacerbating her reflux symptoms. We will be giving IV and p.o. GI meds, given her history of gastric sleeve, I am obtaining a CT scan with contrast, I have very low suspicion for bowel obstruction. He has no peritoneal signs to suggest a perforated ulceration. I have independently reviewed the following tests: Labs: No leukocytosis, not anemic, no electrolyte abnormality noted, not CT abdomen and pelvis: Findings: The lung bases are clear. Hepatomegaly. Right liver 19.6 cm. No dilated bowel loops, pneumoperitoneum, or pneumatosis. Gastric sleeve. Uterus and ovaries unremarkable. The appendix is not identified. No ascites or hernia. No acute fracture. IMPRESSION: 1. No acute findings. No bowel obstruction. 2. Hepatomegaly. Differential Diagnosis Differential Diagnoses: The differential diagnosis associated with the presentation includes See [facility] Admission/Observation Consideration of admission/observation: Escalation of care including admission/observation considered Not applicable Lab Data [facility] Lab Attestation statement: I reviewed the patient's lab results. 09/26/25 19:15 09/26/25 19:15 Labs: Lab Results 09/26/25 Range/Units 19:15 WBC 10.7 (4.8-10.8) X10*3/uL RBC 4.86 (4.20-5.50) X10*6/uL Hgb 13.9 (12.0-16.0) g/dl Hct 42.1 (37.0-47.0) % MCV 86.6 (80.0-98.0) fL MCH 28.6 (27.0-33.0) pg MCHC 33.0 (31.0-35.0) g/dl RDW 12.0 (11.0-16.0) % Plt Count 366 (160-400) X10*3/uL MPV 9.9 (9.4-12.3) fL Immature Gran % (Auto) 0.6 H (0.0-0.4) % Neut % (Auto) 74.7 H (45-73) % Lymph % (Auto) 16.9 L (20-40) % Banner % (Auto) 4.9 (2-11) % Eos % (Auto) 2.4 (0-4) % Baso % (Auto) 0.5 (0-2) % Lymph # (Auto) 1.8 (1.2-4.9) X10*3/uL Banner # (Auto) 0.5 (0.1-1.2) X10*3/uL Eos # (Auto) 0.3 (0.0-0.4) X10*3/uL Baso # (Auto) 0.1 (0.0-0.2) X10*3/uL Abs Immat Gran (auto) 0.06 H (0.00-0.03) X10*3/uL Absolute Neuts (auto) 8.0 (2.0-8.3) x10*3/uL Absolute Nucleated RBC 0.000 (0.0-0.012) X10*3/uL Nucleated RBC % (auto) 0.0 (0.0-0.2) /100WBC Sodium 142 (135-145) mmol/L Potassium 4.2 D (3.3-5.1) mmol/L Chloride 108 (96-108) mmol/L Carbon Dioxide 25 (22-29) mmol/L Anion Gap 13 (12-20) BUN 9 (9-16) mg/dL Creatinine 0.67 (0.5-1.4) mg/dL Estim Creat Clear Calc 149.5 Estimated GFR > 60 Random Glucose 95 (60-115) mg/dL Calcium 9.7 (8.4-10.2) mg/dL Magnesium 2.2 (1.6-2.6) mg/dL Total Bilirubin 0.2 (0.0-1.0) mg/dL AST 23 (5-31) U/L ALT 19 (0-31) U/L Alkaline Phosphatase 95 (39-117) U/L Total Protein 7.8 (6.5-8.0) g/dL Albumin 4.5 (3.5-5.0) g/dL Lipase 78 (8-78) U/L Beta HCG, Quant < 2 mIU/mL Independent Interpretation I performed an independent interpretation of an: EKG Radiology Impression Discussion of test interpretation with radiology: I have reviewed the radiologist's reading. Discharge Plan Discharge Clinical Impression: Constipation, Acid indigestion Patient Disposition: Home, Self-Care Instructions: Constipation (ED), Indigestion (ED) Additional Instructions: You had no lab abnormalities. The CT scan only revealed that you are significantly constipated. See home care instructions. This is the likely trigger for your acid indigestion. Use the Carafate as needed for upper abdominal discomfort. Use the Reglan as needed for nausea vomiting. Use over the counter Colace twice a day, this is a stool softener. Use [id number] MiraLax, several times a day, until you begin having multiple large volume bowel movements, it can also be used every hour until you begin defacating. Continue to follow up with your primary care provider as needed. Prescriptions: New metoclopramide HCl [Reglan] 10 mg tablet 10 mg PO Q6H PRN (Reason: nausea and vomiting) Qty: 12 0RF sucralfate [Carafate] 100 mg/mL suspension 10 ml PO QID PRN (Reason: indigestion) Qty: 300 0RF Rx Instructions: swish in mouth and swallow; use after food/drink No Action lisinopril 5 mg tablet 5 mg PO DAILY 90 Days Qty: 90 1RF topiramate 50 mg tablet 50 mg PO BEDTIME PRN (Reason: migraines) Stand Alone Forms: Work/School Release Interventions: ED Discharge Assessment Last Done: 09/27/25 01:02 Discharge Date/Time: 09/27/25 01:10 Print Language: Cymraes
[2025-09-26 19:20] LABS: MANUAL DIFF FLAG NO
[2025-09-26 19:32] LABS: Hematocrit 42.1 % (37.0-47.0); Hemoglobin 13.9 g/dl (12.0-16.0); Imm Gran Abs Auto 0.06 X10*3/uL (0.00-0.03); Imm Gran Pct Auto 0.6 % (0.0-0.4); Lymphocytes Absolute Auto 1.8 X10*3/uL (1.2-4.9); Mean Corpuscular HGB Conc 33.0 g/dl (31.0-35.0); Mean Corpuscular Hemoglobin 28.6 pg (27.0-33.0); Mean Corpuscular Volume 86.6 fL (80.0-98.0); NRBC Abs Auto 0.000 X10*3/uL (0.0-0.012); NRBC Pct Auto 0.0 /100WBC (0.0-0.2); Platelet Count 366 X10*3/uL (160-400); Red Blood Count 4.86 X10*6/uL (4.20-5.50); White Blood Count 10.7 X10*3/uL (4.8-10.8)
[2025-09-26 19:35] LABS: Alanine Aminotransferase 19 U/L (0-31); Albumin Level 4.5 g/dL (3.5-5.0); Alkaline Phosphatase 95 U/L (39-117); Anion Gap 13 (12-20); Aspartate Amino Transferase 23 U/L (5-31); Blood Urea Nitrogen 9 mg/dL (9-16); Calcium 9.7 mg/dL (8.4-10.2); Carbon Dioxide 25 mmol/L (22-29); Chloride 108 mmol/L (96-108); Creatinine Clr Calc Pharmacy 149.5; Estimated Glomerular Filt Rate > 60; Lipase 78 U/L (8-78); Magnesium 2.2 mg/dL (1.6-2.6); Potassium 4.2 mmol/L (3.3-5.1); Sodium 142 mmol/L (135-145); Total Protein 7.8 g/dL (6.5-8.0)
[2025-09-26 20:11] VITALS: BP 144/99; PULSE 122; RESP 16; TEMP 36.9; O2SAT 100
--- OUTSIDE RECORDS SUMMARY | 2025-09-26 20:31 | XMS_ITS | Encounter Summary ---
Author Organization [facility] Address [address] [place] [address] Phone Care Team Providers Care Prepress Manager Name Role Phone Becca Olguin MD Primary Care Provider [phone] Encounter Details Date Type Department Care Team (Late st Contact Info) Description 11/20/2011 Documentation [facility] [place] Family Medicine [address] [place], [place] [phone] Family Medicine, Physician [address] [place], [place] [phone] Social History Tobacco Use Types Packs/Day Years [...] on filedocumented in this encounter Care Teams Prepress Manager Relationship Specialty Start Date End Date Becca Olguin MD [address] [place] [address] [place] [address] PCP - General 06/27/17 01/01/23 documented as of this encounter
--- OUTSIDE RECORDS SUMMARY | 2025-09-26 20:31 | XMS_ITS | Encounter Summary ---
Author Organization [employer] Address [address] [facility] 7t [place] [address] Care Team Providers Care Lead Cashier Name Role Phone Karon Jung Primary Care Provider [phone] Karon Jung Primary Care Provider [phone] Reason for Visit * Reason Onset Date Comments Call back 01/20/2023 Encounter Details Date Type Department Care Team ([facility] st Contact Info) Description 01/20/2023 Telephone [facility] MEDICINE [address] [place] [address] Karon Jung FNP [address] [place], [place] [phone] Call back Social History Tobacco Use Types Packs/Day Years Used Date Smoking Tobacco: Never Passive Smoke Exposure: Never Smokeless Tobacco: Never Alcohol Use Standard Drinks/Week Comments Yes 0 (1 standard drink = 0.6 oz pur e alcohol) Rare Depression Answer Date Recorded Patient Health Questionnaire-2 Score 0 11/27/2022 Comments Unknown Sex and Gender Information Value Date Recorded Sex Assigned at Female 09/16/2022 10:21 AM EDT Legal Sex Female 10:21 AM EDT Gender Identity Female 09/16/2022 10:21 AM EDT Sexual Orientation Straight 09/16/2022 10 :21 AM EDT COVID-19 Exposure Response Date Recorded In the last 10 days, have yo u been in contact with someone who was confirmed or suspected to have Coronavirus/COVID-19? No / Unsure 01/17/2023 10:07 AM EST documented as of this encounter Miscellaneous Notes * Telephone Encounter - Perla Chua RN - 01/21/2023 1:34 PM EST Placed call to pharmacy regarding message below. Pharmacy states if pt only did 0.25mg for the 3 weeks instead of 4 weeks, pt can just go on and start taking the 0.5mg weekly now. Placed call to pt and informed and pt states she will start using the 0.5mg today. * Telephone Encounter - Lornebe Chandu Chu - 01/20/2023 9:13 AM EST Tc from pt requesting a script for Wegony 0.25 injection. Pt claims she messed up on the last dosed. Please contact pt at [phone], pt claims she currently is at work to leave a detailed message. documented in this encounter Plan of Treatment Upcoming Encounters Date Type Department Care Team (Late st Contact Info) Description 10/17/2025 4:00 PM EST Office Visit [facility] MED & PEDS [address] [place] [address] Karon Jung FNP [address] [place] [address] documented as of this encounter Visit Diagnoses Not on filedocumented in this encounter Care Teams Lead Cashier Relationship Specialty Start Date End Date Karon Jung FNP [address] [place] [address] PCP - General Family Medicine 09/07/21 03/23/24 Karon Jugn FNP [address] [place] [address] PCP - General Family Medicine 07/19/25 documented as of this encounter
--- OUTSIDE RECORDS SUMMARY | 2025-09-26 20:31 | XMS_ITS | Encounter Summary ---
Author Organization [employer] Address [address] [facility] 7t [place] [address] Care Team Providers Care Packing And Final Assembly Supervisor Name Role Phone Karon Jung Primary Care Provider Karon Jung Primary Care Provider Reason for Visit * Reason Onset Date Comments triage 01/13/2023 Encounter Details Date Type Department Care Team ([facility] st Contact Info) Description 01/13/2023 Telephone [facility] MEDICINE [address] [place] [address] Karon Jung FNP [address] [place], [place] [phone] triage Social History Tobacco Use Types Packs/Day Years Used Date Smoking Tobacco: Never Smokeless Tobacco: Never Alcohol Use Standard [...] suspected to have Coronavirus/COVID-19? No / Unsure 01/10/2023 9:43 AM EST documented as of this encounter Miscellaneous Notes * Telephone Encounter - Patricia Varner RN - 01/13/2023 3:12 PM EST Pt had question on dosing for Wegoby r sent over. Per pt thought was supposed to increase to 0.5mg per week and was told that Rx sent for rfeill on 01/22 is for 1mg. Pt wants to clarify dosing. Will send to PCP team nurses to further review with ordering provider and follow up with patient. Protocol Used: Medication Question Call (Adult) Protocol-Based Disposition: Callback or Video Visit by PCP Today Video visit offer not recorded Positive Triage Question: * Caller has NON-URGENT medicine question about med that PCP or specialist prescribed and triager unable to answer question * All higher-acuity triage questions were negative * Telephone Encounter - Severiano Cooley - 01/13/2023 2:53 PM EST Tc form pt returning call. Pt requesting a call back. * Telephone Encounter - Severiano Cooley - 01/13/2023 12:23 PM EST Symptom: Medication Question Outcome: Schedule an urgent appointment (within 4 hours) or talk to a nurse or provider soon Reason: New prescription question The caller accepted this outcome documented in this encounter Plan of Treatment Upcoming Encounters Date Type Department Care Team (Late st Contact Info) Description 10/17/2025 4:00 PM EST Office Visit [facility] MED & PEDS [address] [place] [address] Karon Jung FNP [address] [place] [address] documented as of this encounter Visit Diagnoses Not on filedocumented in this encounter Care Teams Packing And Final Assembly Supervisor Relationship Specialty Start Date End Date Karon Jung FNP [address] [place] [address] PCP - General Family Medicine 09/07/21 03/23/24 Karon Jung FNP [address] [place] [address] PCP - General Family Medicine 07/19/25 documented as of this encounter
--- OUTSIDE RECORDS SUMMARY | 2025-09-26 20:31 | XMS_ITS | Clinical Summary ---
Author Organization [facility] Address [address] [place] [address] Phone Care Team Providers Care Special Delivery Messenger Name Role Phone Unavailable Primary Care Provider [...] AM EST Pulse - - Temperature 36.8 C (98.2 F) 03/22/2011 12:00 AM EDT Respiratory Rate - - Oxygen Saturation 98% [...] HPV Vaccines (1 - 3-dose series) 2016 Influenza Vaccines (#1) 2025 11/19/19 12, 11/08/2010, 11/30/2009, Additional history exists COVID-19 Vaccine ( season) 2025 HIB Vaccines Completed 12/09/2002, 12/19, 2001, Additional history exists Pneumococcal Vaccine Completed 07/25/2003, 01/12/2002, 2001, Additional history exists IPV Vaccines Completed 08/30/2005, 04/18, 2001, Additional history exists MMR Vaccines Completed 08/30/2005, 06/24/2002 Varicella Vaccines Completed 09/14/2008, 06/24/2002 Hepatitis A Vaccines Aged Out No long er eligible based on patient's age to complete this topic Men B Vaccine Aged Out No longer elig ible based on patient's age to complete this topic Meningococcal Vaccine Aged Out No elissa fede eligible based on patient's age to complete this topic
--- OUTSIDE RECORDS SUMMARY | 2025-09-26 20:31 | XMS_ITS | Encounter Summary ---
Author Organization [employer] Address [address] [place] [address] [address] [address] Care Team Providers Care Infection Control Preventionist Name Role Phone Karon Jung Primary Care Provider [phone] Karon Jung Primary Care Provider [phone] Reason for Visit * Reason Comments Med Refill Encounter Details Date Type Department Care Team (Late st Contact Info) Description 04/28/2023 Refill [facility] [address] [place] [address] Karon Jung FNP [address] [place], [place] [phone] Social History Tobacco Use Types Packs/Day Years [...] Orientation Straight 09/16/2022 10 :21 AM EDT documented as of this encounter Plan of Treatment Upcoming Encounters Date Type Department Care Team (Late st Contact Info) Description 10/17/2025 4:00 PM EST Office Visit [facility] [address] [place], [place] [phone] Karon Jung FNP [address] [place], [place] [phone] documented as of this encounter Visit Diagnoses Not on filedocumented in this encounter Care Teams Infection Control Preventionist Relationship Specialty Start Date End Date Karon Jung FNP [address] [place] [address] PCP - General Family Medicine 09/07/21 03/23/24 Karon Jung FNP [address] [place] [address] PCP - General Family Medicine 07/19/25 documented as of this encounter
--- OUTSIDE RECORDS SUMMARY | 2025-09-26 20:31 | XMS_ITS | Encounter Summary ---
Author Organization [facility] Address [address] [place] [address] Phone Care Team Providers Care Proof Passer Name Role Phone Becca Olguin MD Primary Care Provider [phone] Encounter Details Date Type Department Care Team (Late st Contact Info) Description 07/03/2017 Conversion Encounter [facility] [address] [place] [address] Social History Tobacco Use Types Packs/Day Years [...] on filedocumented in this encounter Care Teams Proof Passer Relationship Specialty Start Date End Date Becca Olguin MD [address] [place] [address] PCP - General 06/27/17 01/01/23 documented as of this encounter
--- OUTSIDE RECORDS SUMMARY | 2025-09-26 20:31 | XMS_ITS | Encounter Summary ---
Author Organization [employer] Address [address] [place] [address] [address] [place] [address] Care Team Providers Care Entry Level Sales Associate Name Role Phone Karon Jung Primary Care Provider [phone] Karon Jung Primary Care Provider [phone] Encounter Details Date Type Department Care Team (Late Contact Info) Description 02/12/2023 Orders Only [facility] [address] [place], [place] [phone] Karon Jung FNP [address] [place], [place] [phone] Social History Tobacco Use Types Packs/Day Years [...] suspected to have Coronavirus/COVID-19? No / Unsure 02/14/2023 11:15 AM EDT documented as of this encounter Plan of Treatment Upcoming Encounters Date Type Department Care Team (Late Contact Info) Description 10/17/2025 4:00 PM EST Office Visit [facility] P[facility] [address] [place] [address] Karon Jung FNP [address] [place] [address] documented as of this encounter Visit Diagnoses Not on filedocumented in this encounter Care Teams Entry Level Sales Associate Relationship Specialty Start Date End Date Karon Jung FNP [address] [place] [address] PCP - General Family Medicine 09/07/21 03/23/24 Karon Jung FNP [address] [place] [address] PCP - General Family Medicine 07/19/25 documented as of this encounter
--- OUTSIDE RECORDS SUMMARY | 2025-09-26 20:32 | XMS_ITS | Clinical Summary ---
Author Organization [facility] Address [address] [place] [address] Phone Care Team Providers Care Director Paid Media Name Role Phone Physician, No Pcp Primary Care Provider Unavaila ble Allergies No known active allergies Medications ondansetron ODT (ZOFRAN-ODT) 4 mg disintegrating tablet Dissolve 1 tablet (4 mg total) on top of the tongue every 8 (eight) hours if needed for nausea or vomiting. Let 1 tablet dissolve under the tongue three times daily as needed for nausea or vomiting. 15 tablet Active Encounters Date Type Department Care Team Description 07/15/2025 9:19 AM EDT - 07/15/2025 1:[address] [facility] Emergency [address] [place] [address] Abdirashid Cassidy MD Gastritis without bleeding, unspecified chronicity, unspecified gastritis type (Primary Dx); Hiatal hernia Discharge Disposition: Home or Self Care from Last 3 Months Social History Tobacco Use Types Packs/Day Years Used Date Smoking Tobacco: Never Assessed Comments Unknown Sex and Gender Information Value Date Recorded Sex Assigned at Not on file Legal Sex Female 9:10 AM EDT Gender Identity Not on file Sexual Orientation Not on file Last Filed Vital Signs Vital Sign Reading Time Taken Comments Blood Pressure 130/70 07/15/2025 11:43 AM EDT Pulse 80 07/15/2025 11:43 AM EDT Temperature 36.5 C (97.7 F) 07/15/2025 11:43 AM EDT Respiratory Rate 18 07/15/2025 11:43 AM EDT Oxygen Saturation 100% 07/15/2025 11:43 AM EDT Inhaled Oxygen Concentration - - Weight 95.3 kg (210 lb) 07/15/2025 9:15 AM EDT Height 152.4 cm (5') 07/15/2025 9:15 AM EDT Body Mass Index 41.01 07/15/2025 9:15 AM EDT Plan of Treatment Health Maintenance Due Date Last Done Comments Gonorrhea/Chlamydia Screening 2001 DTaP,Tdap,and Td Vaccines (7 - Td or Tdap) 02/04/2023 02/04/2013, 08/30/2005, 12/09/2002, Additional history exists Depression Screening 11/17/2024 HIV Screening 07/15/2025 Hepatitis C Screening 07/15/2025 Social Influencers of Health Screening 07/15/2025 COVID-19 Vaccine ( season) 2025 08/30/2024, 08/06/2022 Influenza Vaccine (#1) 2025 , 08/06/2022, 09/17/2021, Additional history exists Cervical Cancer Screening: Pap Smear 07/02/2026 07/02/2023 Hypertension/CHF/CAD Annual BMP Blood Test 07/15/2026 07/15/2025 Cholesterol Screening (Lipid Panel) 03/08/2027 03/08/2022 RSV Immunization Adult Patients (1 - 1-dose 75+ series) 2076 Hepatitis B Vaccines Completed 01/12/2002, 2001, 2001 HIB Vaccines Completed 12/09/2002, 12/19, 2001, Additional history exists Pneumococcal Vaccine: Pediatrics (0 to 5 Years) and At-Risk Patients (6 to 49 Years) Completed 07/25/2003, 01/12/2002, 2001, Additional history exists IPV Vaccines Completed 08/30/2005, 04/18, 04/18/2002, Additional history exists MMR Vaccines Completed 08/30/2005, 06/24/2002 Varicella Vaccines Completed 09/14/2008, 06/24/2002 HPV Vaccines Completed 09/21/2013, 03/18, 02/04/2013 Hepatitis A Vaccines Completed 08/05/2016, 06/30/20 15 Meningococcal ACWY Vaccine Completed 01/14/2020, Meningococcal B Vaccine Aged Out No l onger eligible based on patient's age to complete this topic RSV Immunization Patients Under 20 months Aged Out No longer eligible based on patient's age to complete this topic Procedures Procedure Name Priority Date/Time Associated Diagnosis Comments PROTHROMBIN TIME WITH INR STAT 07/15/2025 10:32 AM EDT MAGNESIUM STAT 07/15/2025 10:32 AM EDT HCG, QUANTITATIVE STAT 07/15/2025 10: 32 AM EDT CBC WITH AUTO DIFFERENTIAL STAT 07/15/2025 10:32 AM EDT LIPASE STAT 07/15/2025 10:32 AM EDT COMPREHENSIVE METABOLIC PANEL STAT 07/15/2025 10:32 AM EDT CBC AND DIFFERENTIAL STAT 07/15/2025 10:32 AM EDT US PELVIS TRANSVAGINAL NON OB STAT 07/15/2025 10:29 AM EDT [place] URINE CULTURE TUBE STAT 07/15/2025 9:24 AM EDT URINALYSIS WITH REFLEX MICROSCOPIC AND CULTURE STAT 07/15/2025 9:24 AM EDT URINALYSIS WITH REFLEX MICROSCOPIC AND CULTURE STAT 07/15/2025 9:24 AM EDT CULTURE URINE STAT 07/15/2025 9:24 AM EDT from Last 3 Months Results * (ABNORMAL) CBC auto differential (07/15/2025 10:32 AM EDT) WBC 8.2 4.8 - 10.8 K/[facility] LAB HEMETOLOGY METHOD 07/15/2025 10:50 AM EDT [facility] RBC 4.90(H) 3.80 - 4.80 M/mcL LAB HEMETOLOGY METHOD 07/15/2025 10:50 AM [facility] Hemoglobin 13.9 11.5 - 16.0 g/dL LAB HEMETOLOGY METHOD 07/15/2025 10:50 AM [facility] Hematocrit 41.5 35.0 - 47.0 % LAB HEMETOLOGY METHOD 07/15/2025 10:50 AM [facility] MCV 84.2 79.0 - 98.0 FL LAB HEMETOLOGY METHOD 07/15/2025 10:50 AM [facility] MCH 28.2 27.0 - 32.0 pcg LAB HEMETOLOGY METHOD 07/15/2025 10:50 AM [facility] MCHC 33.5 32.0 - 37.0 g/dL LAB HEMETOLOGY METHOD 07/15/2025 10:50 AM [facility] RDW 12.3 11.0 - 15.0 % LAB HEMETOLOGY METHOD 07/15/2025 10:50 AM [facility] Platelets 343 130 - 400 K/mcL LAB HEMETOLOGY METHOD 07/15/2025 10:50 AM [facility] MPV 9.8 7.0 - 11.0 FL LAB HEMETOLOGY METHOD 07/15/2025 10:50 AM [facility] NRBC 0.0 <1.0 % LAB HEMETOLOGY METHOD 07/15/2025 10:50 AM [facility] NRBC Absolute 0.00 <0.10 K/mcL LAB HEMETOLOGY METHOD 07/15/2025 10:50 AM [facility] Neutrophils Relative 77.5 % LAB HEMETOLOGY METHOD 07/15/2025 10:50 AM [facility] Lymphocytes Relative 13.8 % LAB HEMETOLOGY METHOD 07/15/2025 10:50 AM [facility] Monocytes Relative 5.5 % LAB HEMETOLOGY METHOD 07/15/2025 10:50 AM [facility] Eosinophils Relative 2.0 % LAB HEMETOLOGY METHOD 07/15/2025 10:50 AM [facility] Basophils Relative 0.6 % LAB HEMETOLOGY METHOD 07/15/2025 10:50 AM [facility] Immature Granulocytes Relative 0.6 % LAB HEMETOLOGY METHOD 07/15/2025 10:50 AM [facility] Neutrophils Absolute 6.36 1.50 - 7.00 K/mcL LAB HEMETOLOGY METHOD 07/15/2025 10:50 AM [facility] Lymphocytes Absolute 1.13 1.00 - 5.00 K/mcL LAB HEMETOLOGY METHOD 07/15/2025 10:50 AM [facility] Monocytes Absolute 0.45 0.20 - 1.00 K/mcL LAB HEMETOLOGY METHOD 07/15/2025 10:50 AM [facility] Eosinophils Absolute 0.16 0.00 - 0.50 K/mcL LAB HEMETOLOGY METHOD 07/15/2025 10:50 AM [facility] Basophils Absolute 0.05 0.00 - 0.20 K/mcL LAB HEMETOLOGY METHOD 07/15/2025 10:50 AM [facility] Immature Granulocytes Absolute 0.05(H) 0.00 - 0.03 K/mcL LAB HEMETOLOGY METHOD 07/15/2025 10:50 AM [facility] Blood Venous blood specimen / Unknown Venipuncture / Unknown 07/15/2025 10:32 AM EDT 07/15/2025 10:43 AM EDT us Abdirashid Cassidy MD LAB BLOOD ORDERABLES Final Result Performing Organization Address [facility]/ZIP Co de Phone Number [facility] [address] [place] [address], * Prothrombin time with INR (07/15/2025 10:32 AM EDT) [facility] Protime 12.5 10.6 - 13.9 sec LAB COAGULATION METHOD 07/15/2025 10:52 AM EDT [facility] INR 1.0 LAB COAGULATION METHOD 07/15/2025 10:52 AM EDT [facility] Blood Venous blood specimen / Unknown Venipuncture / Unknown 07/15/2025 10:32 AM EDT 07/15/2025 10:43 AM EDT Barron Cobian MD LAB BLOOD ORDERABLES Final Res ult Performing Organization Address [facility]/ZIP Co de Phone Number [facility] [address] [place] [address], [place] [phone] * HCG, quantitative (07/15/2025 10:32 AM EDT) [facility] hCG Quant <1 mIU/mL LAB CHEMISTRY METHOD 07/15/2025 11:19 AM EDT [facility] Blood Venous blood specimen / Unknown Venipuncture / Unknown 07/15/2025 10:32 AM EDT 07/15/2025 10:44 AM EDT Narrative [facility] - 07/15/2025 11:19 AM EDT Quantitative HCG Reference Ranges Time after Conception MIU/ML 0.2-1 Week 5-50 1-2 Weeks 50-500 2-3 Weeks 100-5,000 3-4 Weeks 500-10,000 4-5 Weeks 1,000-50,000 5-6 Weeks 10,000-100,000 6-8 Weeks 15,000-200,000 2-3 Months 10,000-100,000 2nd Trimester 1,000-94,000 3rd Trimester 2,500-90,000 Non- Females 1-3 Barron Cobian MD LAB BLOOD ORDERABLES Final Res ult Performing Organization Address City/[facility]/ZIP Co de Phone Number [facility] [address] [place] [address], [place] [phone] * Magnesium (07/15/2025 10:32 AM EDT) Magnesium 2.1 1.9 - 2.6 mg/dL LAB CHEMISTRY METHOD 07/15/2025 11:18 AM EDT [facility] Blood Venous blood specimen / Unknown Venipuncture / Unknown 07/15/2025 10:32 AM EDT 07/15/2025 10:44 AM EDT Barron Cobian MD LAB BLOOD ORDERABLES Final Res ult Performing Organization Address [facility]/ZIP Co de Phone Number [facility] [address] [place] [address], [place] [phone] * Lipase (07/15/2025 10:32 AM EDT) Lipase 72 13 - 75 unit/L LAB CHEMISTRY METHOD 07/15/2025 11:18 AM EDT [facility] Blood Venous blood specimen / Unknown Venipuncture / Unknown 07/15/2025 10:32 AM EDT 07/15/2025 10:44 AM EDT Abdirashid Cassidy MD LAB BLOOD ORDERABLES Final Result Performing Organization Address City/[facility]/ZIP Co de Phone Number [facility] [address] [place] [address], [place] [phone] * Comprehensive metabolic panel (07/15/2025 10:32 AM EDT) Sodium 137 133 - 145 mmol/L LAB CHEMISTRY METHOD 07/15/2025 11:18 AM [facility] Potassium 4.0 3.5 - 5.5 mmol/L LAB CHEMISTRY METHOD 07/15/2025 11:18 AM [facility] Chloride 103 96 - 110 mmol/L LAB CHEMISTRY METHOD 07/15/2025 11:18 AM [facility] CO2 27 21 - 32 mmol/L LAB CHEMISTRY METHOD 07/15/2025 11:18 AM [facility] Anion Gap 7 3 - 11 LAB CHEMISTRY METHOD 07/15/2025 11:18 AM [facility] Glucose 85 70 - 100 mg/dL LAB CHEMISTRY METHOD 07/15/2025 11:18 AM [facility] BUN 7 5 - 25 mg/dL LAB CHEMISTRY METHOD 07/15/2025 11:18 AM [facility] Creatinine 0.70 0.50 - 1.10 mg/dL LAB CHEMISTRY METHOD 07/15/2025 11:18 AM [facility] eGFR 124 >=60 mL/min/1. 73m2 LAB CHEMISTRY METHOD 07/15/2025 11:18 AM [facility] Comment:Calculation based on the Chronic Kidney Disease Epidemiology Collaboration (CKD-EPI) equation refit without adjustment for race. BUN/Creatinine Ratio 10.0 LAB CHEMISTRY METHOD 07/15/2025 11:18 AM [facility] Calcium 9.0 8.5 - 10.5 mg/dL LAB CHEMISTRY METHOD 07/15/2025 11:18 AM [facility] AST (SGOT) 24 10 - 42 unit/L LAB CHEMISTRY METHOD 07/15/2025 11:18 AM [facility] ALT (SGPT) 26 10 - 60 unit/L LAB CHEMISTRY METHOD 07/15/2025 11:18 AM EDT [facility] Alkaline Phosphatase 100 42 - 121 unit/L LAB CHEMISTRY METHOD 07/15/2025 11:18 AM EDT [facility] Total Protein 7.5 6.0 - 8.0 g/dL LAB CHEMISTRY METHOD 07/15/2025 11:18 AM EDT [facility] Albumin 3.8 3.2 - 5.0 g/dL LAB CHEMISTRY METHOD 07/15/2025 11:18 AM EDT [facility] Total Bilirubin 0.3 0.0 - 1.4 mg/dL LAB CHEMISTRY METHOD 07/15/2025 11:18 AM EDT [facility] Blood Venous blood specimen / Unknown Venipuncture / Unknown 07/15/2025 10:32 AM EDT 07/15/2025 10:44 AM EDT us Abdirashid Cassidy MD LAB BLOOD ORDERABLES Final Result [facility] [address] [place] [address], [place] [phone] * US Pelvis Transvaginal Non OB (07/15/2025 10:29 AM EDT) Anatomical Region Laterality Modality Body Ultrasound 07/15/2025 11:0 0 AM EDT Impressions 07/15/2025 11:02 AM EDT NORMAL EXAM. -------- FINAL REPORT -------- Dictated By: BERNABE STILL Dictated Date: 07/15/2025 11:00 ET Assigned Physician: BERNABE STILL Reviewed and Electronically Signed By: BERNABE STILL Signed Date: 07/15/2025 11:02 ET Workstation ID: [id number] Transcribed By: Self Edit Transcribed Date: 07/15/2025 11:00 ET Narrative 07/15/2025 11:02 AM EDT PROCEDURE: US PELVIS TRANSVAGINAL NON OB INDICATION: Bleeding TECHNIQUE: 2-D sweeney scale, color Doppler ultrasound of the pelvis with transabdominal and transvaginal technique. Duplex Doppler assessment was performed to better evaluate the ovaries. COMPARISON: No priors available. FINDINGS: Anteverted uterus measures 6 cm in length. The uterus is normal. No uterine masses. Endometrium is normal and measures 4 mm. Nonspecific fluid seen within the cervical canal. Multiple follicles are seen throughout the ovaries. There is normal Doppler flow at the ovaries bilaterally. Procedure Note Bernabe Still MD - 07/15/2025 PROCEDURE: US PELVIS TRANSVAGINAL NON OB INDICATION: Bleeding TECHNIQUE: 2-D sweeney scale, color Doppler ultrasound of the pelvis withtransabdominal and transvaginal technique. Duplex Doppler assessment wasperformed to better evaluate the ovaries. COMPARISON: No priors available. FINDINGS: Anteverted uterus measures 6 cm in length. The uterus isnormal. No uterine masses. Endometrium is normal and measures 4 mm. Nonspecific fluid seen within the cervical canal. Multiple follicles are seen throughout the ovaries. There is normalDoppler flow at the ovaries bilaterally. IMPRESSION: NORMAL EXAM. -------- FINAL REPORT -------- Dictated By: BERNABE STILL Dictated Date: 07/15/2025 11:00 ET Assigned Physician: BERNABE STILL Reviewed and Electronically Signed By: BERNABE STILL Signed Date: 07/15/2025 11:02 ET Workstation ID: [id number] Transcribed By: Self Edit Transcribed Date: 07/15/2025 11:00 ET us Barron Cobian MD [facility] US PROCEDURES Final Result * (ABNORMAL) Urinalysis with reflex microscopic and culture (07/15/2025 9:24 AM EDT) Specific [place] Urine 1.027 1.003 - 1.030 LAB URINALYSIS - AUTOMATED METHOD 07/15/2025 10:30 AM EDT [facility] pH, Urine 7.0 5.0 - 8.0 pH LAB URINALYSIS - AUTOMATED METHOD 07/15/2025 10:30 AM EDT [facility] Leukocytes, Urine Trace(A) Negative LAB URINALYSIS - AUTOMATED METHOD 07/15/2025 10:30 AM [facility] Nitrite, Urine Negative Negative LAB URINALYSIS - AUTOMATED METHOD 07/15/2025 10:30 AM [facility] Protein, Urine 30(A) <=Trace mg/dL LAB URINALYSIS - AUTOMATED METHOD 07/15/2025 10:30 AM [facility] Glucose, Urine Negative Negative mg/dL LAB URINALYSIS - AUTOMATED METHOD 07/15/2025 10:30 AM [facility] Ketones, Urine Trace(A) Negative mg/dL LAB URINALYSIS - AUTOMATED METHOD 07/15/2025 10:30 AM [facility] Urobilinogen , Urine 1.0 0.2 - 1.0 mg/dL LAB URINALYSIS - AUTOMATED METHOD 07/15/2025 10:30 AM [facility] Bilirubin, Urine Negative Negative LAB URINALYSIS - AUTOMATED METHOD 07/15/2025 10:30 AM [facility] Blood, Urine Large(A) Negative LAB URINALYSIS - AUTOMATED METHOD 07/15/2025 10:30 AM [facility] RBC, Urine >4,000(H) 0 - 4 /HPF LAB URINALYSIS - AUTOMATED METHOD 07/15/2025 10:30 AM [facility] WBC, Urine 13.2(H) 0 - 4 /HPF LAB URINALYSIS - AUTOMATED METHOD 07/15/2025 10:30 AM [facility] Squamous Epithelial, Urine 97(H) 0 - 60 /LPF LAB URINALYSIS - AUTOMATED METHOD 07/15/2025 10:30 AM [facility] Bacteria, Urine Negative Negative /HPF LAB URINALYSIS - AUTOMATED METHOD 07/15/2025 10:30 AM [facility] Hyaline Casts, Urine 2.4 0 - 3 /LPF LAB URINALYSIS - AUTOMATED METHOD 07/15/2025 10:30 AM EDT [facility] Urine Urine specimen obtained by clean catch procedure / Unknown Non-blood Collection / Unknown 07/15/2025 9:24 AM EDT 07/15/2025 9:48 AM EDT us Barron Cobian MD LAB URINE ORDERABLES Final Res ult Performing Organization Address City/[facility]/ZIP Co de Phone Number [facility] [address] [place] [address], [place] [phone] * Sweeney urine culture tube (07/15/2025 9:24 AM EDT) Extra Tube Hold for add-ons. 07/15/2025 11:01 AM EDT [facility] Comment:Auto resulted. Urine Urine specimen obtained by clean catch procedure / Unknown Non-blood Collection / Unknown 07/15/2025 9:24 AM EDT 07/15/2025 9:48 AM EDT us Barron Cobian MD LAB URINE ORDERABLES Final Res ult Performing Organization Address [facility] Co de Phone Number [facility] [address] [place] [address], [place] [phone] * Culture urine (07/15/2025 9:24 AM EDT) Culture, Urine No growth 07/16/2025 7:17 AM EDT [facility] Urine Urine specimen obtained by clean catch procedure / Unknown Non-blood Collection / Unknown 07/15/2025 9:24 AM EDT 07/15/2025 10:30 AM EDT us Barron Cobian MD LAB MICROBIOLOGY - GENERAL ORD ERABLES Final Result Performing Organization Address City/[facility]/ZIP Co de Phone Number [facility] [address] [place] [address], [place] [phone] from Last 3 Months Insurance [facility] Care Teams Director Paid Media Relationship Specialty Start Date End Date Physician, No Pcp PCP - General 07/15/25
--- OUTSIDE RECORDS SUMMARY | 2025-09-26 20:32 | XMS_ITS | Encounter Summary ---
Author Organization [facility] Address [address] [place] [address] Phone Care Team Providers Care Nylon Operator Name Role Phone Becca Olguin MD Primary Care Provider [phone] Encounter Details Date Type Department Care Team (Late st Contact Info) Description 08/13/2011 Documentation [facility] Family Medicine [address] [place], [place] [phone] Family Medicine, Physician [address], [place] [phone] Social History Tobacco Use Types Packs/Day Years [...] on filedocumented in this encounter Care Teams Nylon Operator Relationship Specialty Start Date End Date Becca Olguin MD [address] [place] [address] [place] [address] PCP - General 06/27/17 01/01/23 documented as of this encounter
--- OUTSIDE RECORDS SUMMARY | 2025-09-26 20:32 | XMS_ITS | Encounter Summary ---
Author Organization [employer] Address [address] [place] [address] 7 [place] [address] Care Team Providers Care Crown Wheel Assembler Name Role Phone Karon Jung Primary Care Provider [phone] Karon Jung Primary Care Provider Encounter Details Date Type Department Care Team (Late st Contact Info) Description 08/04/2023 Orders Only [facility] MED & PEDS [address], [place] [phone] Karon Jung FNP [address] [place] [address] Social History Tobacco Use Types Packs/Day Years Used Date Smoking Tobacco: Never Passive Smoke Exposure: Never Smokeless Tobacco: Never Alcohol Use Standard Drinks/Week Comments Yes 0 (1 standard drink = 0.6 oz pur e alcohol) Rare Depression Answer Date Recorded Patient Health Questionnaire-2 Score 0 11/27/2022 Comments No Sex and Gender Information Value Date Recorded Sex Assigned at Female 09/16/2022 10:21 AM EDT Legal Sex Female 10:21 AM EDT Gender Identity Female 09/16/2022 10:21 AM EDT Sexual Orientation Straight 09/16/2022 10 :21 AM EDT documented as of this encounter Plan of Treatment Upcoming Encounters Date Type Department Care Team (Late st Contact Info) Description 10/17/2025 4:00 PM EST Office Visit [facility] [address], [place] [phone] Karon Jung FNP [address], [place] [phone] documented as of this encounter Visit Diagnoses Not on filedocumented in this encounter Care Teams Crown Wheel Assembler Relationship Specialty Start Date End Date Karon Jung FNP [address] [place] [address] PCP - General Family Medicine 09/07/21 03/23/24 Karon Jung FNP [address] [place] [address] PCP - General Family Medicine 07/19/25 documented as of this encounter
--- OUTSIDE RECORDS SUMMARY | 2025-09-26 20:32 | XMS_ITS | Encounter Summary ---
Author Organization [employer] Address [address] [facility] [address] [place] [address] Care Team Providers Care Gardening Supervisor Name Role Phone Karon Jung Primary Care Provider [phone] Karon Jung Primary Care Provider [phone] Reason for Visit * Reason Comments Med Refill Encounter Details Date Type Department Care Team ([facility] st Contact Info) Description 12/12/2023 Refill [facility] [address] [place] [address] Karon Jung FNP [address] [place] [address] Class 3 severe obesity due to excess calories with body mass index (BMI) of 50.0 to 59.9 in adult, unspecified whether serious comorbidity present (CMS/HCC) Social History Tobacco Use Types Packs/Day Years Used Date Smoking Tobacco: Never Passive Smoke Exposure: Never Smokeless Tobacco: Never Alcohol Use Standard Drinks/Week Comments Yes 0 (1 standard drink = 0.6 oz pur e alcohol) Rare Depression Answer Date Recorded Patient Health Questionnaire-9 Score 2 11/05/2023 Patient Health Questionnaire-9 Score 2 11/05/2023 Last PHQ-9: Questionnaire Data Not on file 1 01/06/2023 Housing Stability Answer Date Recorded What is your housing situation today? I have marina hernandez 09/22/[address] you li ve. Do you have problems with any of the following? None of the above 09/22/2023 Food Insecurity Answer Date Recorded Within the past 12 months, y ou worried that your food would run out before you got money to buy more: Never True 09/22/2023 Within the past 12 months,th e food you bought just didn't last and you didn't have enough money to get more: Never True 04/2023 Transportation Answer Date Recorded In the past 12 months, has l ack of transportation kept you from medical appts, meetings, work or from getting things needed for daily living? No 09/22/2023 Utilities Answer Date Recorded In the past 12 months, has t he electric, gas, oil or water company threatened to shut off services in your home? No 09/22/2023 Depression Answer Date Recorded Patient Health Questionnaire-2 Score 0 11/05/2023 Comments No Sex and Gender Information Value [...] Description 10/17/2025 4:00 PM EST Office Visit [facility]S [address] [place] [address] Karon Jung FNP [address] [place] [address] documented as of this encounter Visit Diagnoses Diagnosis Class 3 severe obesity due to excess calories with body mass index (BMI) of 50.0 to 59.9 in adult, unspecified whether serious comorbidity present (HCC) documented in this encounter Additional Health Concerns Assessment Noted Time PHQ-9 Depression Total Score: 2 11/05/20 23 10:47 AM EST documented as of this encounter Care Teams Gardening Supervisor Relationship Specialty Start Date End Date Karon Jung FNP [address] [place] [address] PCP - General Family Medicine 09/07/21 03/23/24 Karon Jung FNP [address] [place] [address] PCP - General Family Medicine 07/19/25 documented as of this encounter
--- OUTSIDE RECORDS SUMMARY | 2025-09-26 20:32 | XMS_ITS | Encounter Summary ---
Author Organization [employer] Address [address] [facility] [address] [place] [address] Care Team Providers Care Proj Engineer Name Role Phone Karon Jung Primary Care Provider [phone] Karon Jung Primary Care Provider [phone] Reason for Visit * Reason Onset Date Comments new script 12/24/2022 Encounter Details Date Type Department Care Team ([facility] st Contact Info) Description 12/24/2022 Telephone [facility] MEDICINE [address] [place] [address] Karon Jung FNP [address] [place], [place] [phone] new script Social History Tobacco Use Types Packs/Day Years [...] suspected to have Coronavirus/COVID-19? No / Unsure 12/27/2022 3:32 PM EST documented as of this encounter Miscellaneous Notes * Telephone Encounter - Tennille Sloan - 12/24/2022 11:14 AM EST TC from pt calling requesting status on Medication Wegovy inj. Order Runner contact [facility] Pharmacy to verify but a Pharmacist stated we have to re send a script of Wegovy but instead of 1mg script has to be Wegovy 0.25mg. Also Pharmacy stated we need to do a PA for new dose and also we have to order medication. PCP TERRITORY SALES REPRESENTATIVE Fabiana documented in this encounter Plan of Treatment Upcoming Encounters Date Type Department Care Team (Late st Contact Info) Description 10/17/2025 4:00 PM EST Office Visit [facility] PEDS [address] [place] [address] Karon Jung FNP [address] [place] [address] documented as of this encounter Visit Diagnoses Not on filedocumented in this encounter Care Teams Proj Engineer Relationship Specialty Start Date End Date Karon Jung FNP [address] [place] [address] PCP - General Family Medicine 09/07/21 03/23/24 Karon Jung FNP [address] [place] [address] PCP - General Family Medicine 07/19/25 documented as of this encounter
--- OUTSIDE RECORDS SUMMARY | 2025-09-26 20:32 | XMS_ITS | Clinical Summary ---
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 2 Active benzoyl peroxide 5 % external washIndications:S kin lesion,Hidradenit is suppurativa Apply topically to face, chest, and back in the shower. May use every other day if excessive skin drying. 120 g 1 3 Active clindamycin (Cleocin T) 1 % lotionIndications :Skin lesion,Hidradenit is suppurativa APPLY A THIN LAYER TO AFFECTED AREA(S) TWICE DAILY 60 mL 1 3 Active Diclofenac Sodium (Voltaren) 1 % gelIndications:Ot her chronic back pain apply 2 gram by topical route 3-4 times every day to the affected area(s) 50 g 2 3 Active Omeprazole 20 MG tablet delayed-releaseIn dications:Dyspeps ia Take 20 mg by mouth 2 times daily. 60 tablet 1 3 Active senna (Senokot) 8.6 MG tabletIndications :Constipation, unspecified constipation type Take 1 tablet (8.6 mg) by mouth if needed at bedtime for constipation. 90 tablet 1 3 Active lisinopril 2.5 MG tabletIndications :Primary hypertension Take 1 tablet (2.5 mg) by mouth in the morning. Take with 5mg pill for total daily 7.5mg 90 tablet 1 3 Active metFORMIN (Glucophage) 500 MG tabletIndications :Hidradenitis suppurativa,Polyc ystic ovary syndrome Take 1 tablet (500 mg) by mouth with breakfast and with evening meal. 180 tablet 1 3 Active triamcinolone (Kenalog) 0.1 % ointmentIndicatio ns:Eczema, unspecified type Apply topically 2 times daily. Apply for up to 1-2 weeks as needed for eczema flares. 30 g 2 3 Active semaglutide (Rybelsus) 3 MG tabletIndications :Class 3 severe obesity due to excess calories with body mass index (BMI) of 50.0 to 59.9 in adult, unspecified whether serious comorbidity present (HCC) Start 3mg po daily for one month 30 tablet 4 Active lisinopril 5 MG tabletIndications :Primary hypertension Take 1 tablet (5 mg) by mouth in the morning. 90 tablet 3 4 Active Active Problems Problem Noted Date Diagnosed Date Macromastia 12/29/2022 Assessment & Plan (12/29/2022 12:31 PM EST): -Bra size: 42DDD -Symptoms include back pain (upcoming appt to establish with PT), breast tenderness -Interested in referral for eval breast reduction, referral placed 12/27/22 Insomnia 11/27/2022 Hidradenitis suppurativa 11/27/2022 Assessment & Plan (11/06/2023 4:17 PM EST): Last plan: -Start doxy 100mg BID x 3 weeks. Encouraged to take with food, and reviewed SE. -Continue with topical - Benzoyl peroxide wash and clindamycin -Referral to [facility] Derm team placed Today's Plan: pt reports only mild improvement from above regimen. Will plan to follow up with derm/PCP in Dec 2023 Assessment & Plan (06/12/2023 3:46 PM EDT): -Start doxy 100mg BID x 3 weeks. Encouraged to take with food, and reviewed SE. -Continue with topical - Benzoyl peroxide wash and clindamycin -Referral to [facility] Derm team placed Assessment & Plan (12/29/2022 12:32 PM EST): -Continue benzoyl peroxide wash daily -Continue with clindamycin lotion topical daily - BID as tolerated -Reschedule appt with [facility] Derm team -Recently completed course of PO doxy with noted improvement of symptoms. Follow up with any questions, concerns, or worsening of symptoms. Assessment & Plan (11/27/2022 9:57 PM EST): -Start benzoyl peroxide wash daily -Continue with clindamycin lotion topical daily - BID as tolerated -Reschedule appt with [facility] Derm team -Discussed possible step-up therapy to PO abx if needed. Follow up with any questions, concerns, or worsening of symptoms. Primary hypertension 11/27/2022 Overview (11/06/2023): -Cont to lisinopril 7.5mg daily (plan to put alarm reminder on phone for 6:30pm daily) -Monitor BP at home, and call office with persistent elevation of reading -Recommend lifestyle interventions such as routine physical activity and low salt diet -ED precautions Assessment & Plan (12/29/2022 12:29 PM EST): -Reports home readings elevated, asymptomatic -Using wrist cuff, bring into office for calibration -Encourage low salt diet, routine physical activity -ED precautions Follow up in 2 weeks for in office BP calibration and adjustment of pharmacotherapy if needed. Sooner as needed. Assessment & Plan (11/27/2022 10:02 PM EST): -BP elevated in office, pt reports consistent with BP levels at home (previously well controlled on medication) -Encouraged lifestyle interventions such as low salt diet and goal 150 mins of physical activity weekly -Re-start lisinopril 5mg daily, reviewed med safety and SE -Follow up in 3 weeks via televisit to review home BP readings, sooner PRN Polycystic ovary syndrome 03/07/2022 Assessment & Plan (06/12/2023 3:44 PM EDT): -Pt evaluated by endo in 2017, no subsequent follow up -Hirsutism: noted on face and lower back -Prevention of endometrial hyperplasia: nexplanon -Metabolic risk: Elevated BMI and acanthosis nigricans noted on neck: 03/08/22 A1c 5.5, lipid profile TC 165, HDL 39, LDL 109, Triglycerides 81 -Discussion of weight reduction in relation to PCOS. -Initiation of metformin 500mg BID. Reviewed med safety and SE Irregular periods 08/05/2016 Obesity 06/30/2015 Overview (11/06/2023): Previous med trial: -Wegovy 0.25mg subcutaneous weekly (experienced GI SE at increased doses). Difficulty with med supply in pharmacies -Oct 2023: CHARISSE Martinez, start Rybelsus 3mg daily. Reviewed med use and SE. Encouraged to continue with healthy lifestyle interventions including physical activity (goal 150mins/week) and healthy dietary habits Assessment & Plan (03/11/2023 3:10 PM EDT): Side effects noted with doses >0.25mg subcutaneous weekly. Restart on 0.25mg subcutaneous weekly. Call office with any further SE Encounters Date Type Department Care Team Description 08/23/2025 Telephone [facility] MEDICINE [address] [place] [phone] Karon Jung FNP chartprep from Last 3 Months Immunizations Immunization Administration Dates Next Due DTaP 08/30/2005, 3,01/12/2002,10/28,2001 DTaP, 5 pertussis antigens 08/30/2005,,01/12/2002,10/28,2001 HPV, Quadrivalent 09/21/2013,04/08/2013,02/05/20 13 Hep A, ped/adol, 2 dose 08/05/2016,06/30/2015 Hep B, Adolescent or Pediatric 01/12/2002,2000,2001 Hib (HbOC) 12/09/2002, 2,2001,08/27 Hib (PRP-T) 12/09/2002, 2,2001,08/27 IPV 08/30/2005, 2,04/18/2002,10/28,2001 Influenza Injectable Quadriv alant Preservative Free IIV4 MDCK 08/06/2022 Influenza injectable quadriv alent IIV4 with preservative 01/10/2016 Influenza injectable quadriv alent preservative free 08/10/2023,09/17/2021,01/14/2020,08/05 Influenza, IIV3, injectable 11/30/2009, 8,09/14/2007 Influenza, Split (incl. cristi fied surface antigen) 09/21/2013,12/04/2012,11/19/2011,11/08 Influenza, seasonal, injecta ble, preservative free 08/30/2024,11/19/2011,11/08/2010,09/14,09/14/2007 MMR 08/30/2005,06/24/2002 Meningococcal MCV4P ACYW-135 01/14/2020,06/30/20 15 Moderna Covid-19 Vaccine 6+ Bivalent 08/06/2022 Novel [id number], all formulations 11/30/2009,09/14/2009 Pneumococcal Conjugate PCV 7 07/25/2003, 01/12/2002,2001,08/27 Tdap 02/04/2013 Varicella 09/14/2008,06/24/2002 Family History Medical History Relation Name Comments Diabetes Father Relation Name Status Comments Father Social History Tobacco Use Types Packs/Day Years [...] Orientation Straight 09/16/2022 10 :21 AM EDT Last Filed Vital Signs Vital Sign Reading Time Taken Comments Blood Pressure 132/82 11/05/2023 9:42 AM EST Pulse 104 11/05/2023 9:42 AM EST Temperature 36.8 C (98.2 F) 11/05/2023 9:42 AM EST Respiratory Rate 22 11/05/2023 9:42 AM EST Oxygen Saturation 98% 11/05/2023 9:42 AM EST Inhaled Oxygen Concentration - - Weight 134 kg (295 lb 2 oz) 11/05/2023 9:[address] Height 154 cm (5' 0.63 ) 11/05/2023 9:42 AM EST Body Mass Index 56.45 11/05/2023 9:42 AM EST Plan of Treatment Upcoming Encounters Date Type Department Care Team (Late st Contact Info) Description 10/17/2025 4:00 PM EST Office Visit [facility] MED & PEDS [address] [place] [address] Karon Jung FNP [address] [place] [address] Health Maintenance Due Date Last Done Comments HIV Screening 2001 Disability Screening 2001 Alcohol/Substance Use Screening 2013 Family Planning (PISQ) 2016 DTaP/Tdap/Td Vaccines (7 - Td or Tdap) 02/04/2023 02/04/2013, 08/30/2005, 08/30/2005, Additional history exists SDOH Screening 11/27/2023 11/27/2022 Depression Screening 11/05/2024 11/05/2023, 11/05/20 23 Tobacco Screening 11/05/2024 11/05/2023 Influenza Vaccine (#1) 2025 , 08/10/2023, 08/06/2022, Additional history exists Pap Smear 07/02/2026 07/02/2023 Lipid Panel 03/08/2027 03/08/2022 Zoster Vaccines (1 of 2) 2051 RSV Patients and Patients Aged 60 years or older (1 - 1-dose 75+ series) 2076 Hepatitis B Vaccines Completed 01/12/2002, 2001, 2001 HIB Vaccines Completed 12/09/2002, 11/18, 01/12/2002, Additional history exists Pneumococcal Vaccine: Pediatrics (0 to 5 Years) and At-Risk Patients (6 to 49) Years Aged Out 07/25/2003, 01/12/2002, 2001, Additional history exists No longer eligible based on patient's age to complete this topic IPV Vaccines Completed 08/30/2005, 04/18, 04/18/2002, Additional history exists HPV Vaccines Completed 09/21/2013, 03/18, 02/04/2013 Hepatitis A Vaccines Completed 08/05/2016, 06/30/20 15 Meningococcal Vaccine Completed 01/14/2020, 015 Hepatitis C Screening Completed 03/08/2022 COVID-19 Vaccine Completed 08/30/2024, , 08/06/2022, Additional history exists Meningococcal B Vaccine Aged Out No l onger eligible based on patient's age to complete this topic RSV under 20 months Aged Out No longe r eligible based on patient's age to complete this topic Rotavirus Vaccines Aged Out No longer eligible based on patient's age to complete this topic Procedures Procedure Name Priority Date/Time Associated Diagnosis Comments PAP SMEAR Routine 07/02/2023 RICKY HISTORICAL HEPATITIS C AB W/REFL TO HCV RNA, QN, PCR Routine 03/08/2022 11:09 AM EDT LIPID PANEL, STANDARD Routine 03/08/2022 11:09 AM EDT from Last 3 Months or Most Recently Relevant to Health Maintenance Results * Pap Smear (07/02/2023) 07/02/2023 07/03/2023 9:4 5 AM EDT [facility] - 07/22/2023 9:40 AM EDT ----- ------- Name: Martha Perdomo Age/Sex: 23/F : 2000 Unit#: [id number] Attend Dr: MARKO SHAH CNM Re07/02/23 Status: DEP REF Location: HO.HHCLNP Disch: ----- ------- SPEC : [id number] RECD: 07/03/23 STATUS: RIVERA MEDRANO NUM: [id number] CASSANDRA: 07/02/23- SUBM DR: MARKO SHAH CNM ENTERED: 07/03/23-1051 SP TYPE: Pap Smr OT DR: ORDERED: Pap Smear Interpretation Satisfactory for evaluation. Negative for intraepithelial lesion or malignancy. Clinical Information LMP:Unknown date Previous PAP test:Unknown date/findings Material Received ThinPrep-Vaginal/Cervical ----- ------- Signed (signature on file) KIKA Rolon (ASCP) 07/22/23 0940 ----- ------- END OF REPORT Marko Shah [facility] CYTOLOGY ORDERABLES F inal Result [facility] [address] [place] [phone] * HEPATITIS C AB W/REFL TO HCV RNA, QN, PCR (03/08/2022 11:09 AM EDT) HEPATITIS C ANTIBODY NON-REACT DEEPTI NON-REACT DEEPTI [facility] INDEX 0.02 <1.00 [facility] Comment: HCV antibody was non-reactive. There is no laboratory evidence of HCV infection. In most cases, no further action is required. However, if recent HCV exposure is suspected, a test for HCV RNA (test code 40370) is suggested. For additional information please refer to http://education.[employer]/faq/HCJ02a6 (This link is being provided for informational/ educational purposes only.) 03/08/2022 11:0 9 AM EDT Karon Fabiana [facility] HISTORICAL/NON ORDERABLE LABS Final Result Performing Organization Address [facility] de Phone Number [facility] [address] [place] [address], * (ABNORMAL) LIPID PANEL, STANDARD (03/08/2022 11:09 AM EDT) Chol/HDLC Ratio 4.2 <5.0 (calc) [facility] Cholesterol, Total 165 <200 mg/dL [facility] HDL Cholesterol 39(L) > OR = 50 mg/dL [facility] LDL Cholesterol 109(H) mg/dL (calc) [facility] Comment: Reference range: <100 Desirable range <100 mg/dL for primary prevention; <70 mg/dL for patients with CHD or diabetic patients with > or = 2 CHD risk factors. LDL-C is now calculated using the Romulo-Mikayla calculation, which is a validated novel method providing better accuracy than the Friedewald equation in the estimation of LDL-C. Romulo SS et al. CON. 2013;310(19): 5870-2001 (http://education.[employer].Gelato Fiasco/faq/RTV558) Non-HDL Cholesterol 126 <130 mg/dL (calc) [facility] Comment: For patients with diabetes plus 1 major ASCVD risk factor, treating to a non-HDL-C goal of <100 mg/dL (LDL-C of <70 mg/dL) is considered a therapeutic option. Triglycerides 81 <150 mg/dL [facility] 03/08/2022 11:0 9 AM EDT Karon HORN LAB BLOOD ORDERABLES Final Res ult Performing Organization Address [facility] Co de Phone Number [facility] [address] [place] [address], from Last 3 Months or Most Recently Relevant to Health Maintenance Insurance [facility] PPO [facility] STANDARD Care Teams Cooler Tender Relationship Specialty Start Date End Date Karon Jung FNP [address] [place] [address] PCP - General Family Medicine 07/19/25
--- NOTE | 2025-09-26 21:57 | PC.NURSE ---
pt is drinking the oral contrast as directed - slowly d/t her hx of gastric sleeve
[2025-09-26 22:13] VITALS: BP 113/55; PULSE 83; RESP 16; TEMP 36.6; O2SAT 96
[2025-09-26] MEDS: iohexoL 350 MG/ML 100 ML INFUS..BTL 85 ML IV (23:59)
[2025-09-27] VITALS: BP 124/58; PULSE 98; RESP 22; TEMP 37.2; O2SAT 98
[2025-09-27 01:02] VITALS: BP 124/58; PULSE 98; RESP 22; TEMP 37.2; O2SAT 98
== END 2025-09-27 01:10 | disposition home or self-care (01) ==
PROVIDERS: Physician Assistant Medical; Emergency Provider Emergency Medicine; PCP Internal Medicine
DX: K59.00 Constipation, unspecified (principal); K30 Functional dyspepsia; R10.9 Unspecified abdominal pain; Z98.84 Bariatric surgery status
CPT/HCPCS: 36415; 74177; 80053; 83690; 83735; 84702; 85025; 96374; 96375; 99284; 99285; J1308; J2270; J2765; Q9967

== ENCOUNTER → 2025-09-26 23:45 | Outpatient (BNV) | payer OTHER, SELFPAY | PROVIDERS: Emergency Provider Emergency Medicine; PCP Internal Medicine; Visit Provider Radiology Diagnostic Radiology | DX: R10.84 Generalized abdominal pain (principal); Z98.84 Bariatric surgery status | CPT/HCPCS: 74177 ==